=== PATIENT | female | born 1930 | race Caucasian/White ===

== ENCOUNTER 2017-05-06 20:28 | Inpatient (IN) | payer MEDICARE, BC ==
[~2017-05-06] VITALS: Ht 157.5 cm; Wt 54.4 kg
[2017-05-06 21:00] VITALS: BP 113/78
[2017-05-06 21:07] LABS: BASOPHILS % (AUTO) 0.7 % (0.0-2.0); EOSINOPHILS % (AUTO) 2.9 % (0.0-3.0); MEAN CORPUSCULAR HEMOGLOBIN 31.9 PG (27.0-31.0); MEAN CORPUSCULAR HGB CONC 32.2 G/DL (32.0-36.0); MEAN CORPUSCULAR VOLUME 99 FL (80-99); MEAN PLATELET VOLUME 5.6 FL (6.5-10.1); MONOCYTES % (AUTO) 5.7 % (1.0-10.0); NEUTROPHILS % (AUTO) 72.7 % (45.0-75.0); PLATELET COUNT 261 K/UL (150-450); RED BLOOD COUNT 3.07 M/UL (4.20-5.40); RED CELL DISTRIBUTION WIDTH 12.1 % (11.6-14.8); WHITE BLOOD COUNT 9.4 K/UL (4.8-10.8)
--- NOTE | 2017-05-06 21:12 | Emergency Room Report ---
History of Present Illness General Chief Complaint: Palpitations Source: Patient, Family Member, EMS Present Illness HPI 87-year-old female history of end-stage renal disease on dialysis Wednesday, completed dialysis today, hypertension, seizures on Lamictal , presenting with palpitations. History obtained from patient and daughter. Patient states that towards the end of dialysis she started feeling very lightheaded with extreme palpitations. Also felt short of breath. Very dizzy. Did not syncopized. Denied chest pain. Daughter stating that she has had a fib many years ago, however she was never given any meds. Patient is not on anticoagulation nor on aspirin Otherwise prior to today's episode, patient is been eating and drinking well, Denies any recent fever chills nausea vomiting diarrhea dysuria hematuria Allergies: Coded Allergies: HYDROMORPHONE (Verified Allergy, Unknown, 05/06/17) KETOROLAC (Verified Allergy, Unknown, 05/06/17) PENICILLINS (Verified Allergy, Unknown, 05/06/17) Patient History Past Medical History: see triage record Past Surgical History: none Pertinent Family History: none Last Menstrual Period: n/a Reviewed Nursing Documentation: PMH: Agreed, PSxH: Agreed Nursing Documentation-PMH Hx Hypertension: Yes Review of Systems All Other Systems: negative except mentioned in HPI Physical Exam Vital Signs Date Time Temp Pulse Resp B/P (MAP) Pulse Ox O2 Delivery O2 Flow Rate FiO2 05/06/17 20:24 98.2 117 20 118/86 98 Room Air Sp02 EP Interpretation: reviewed, normal General Appearance: alert, GCS 15, non-toxic, mild distress, other - Elderly woman, appears to the tired however awake alert cooperative, not in pain Head: normocephalic, atraumatic Eyes: bilateral eye normal inspection, bilateral eye PERRL, bilateral eye EOMI ENT: normal ENT inspection, normal pharynx, normal voice, moist mucus membranes Neck: normal inspection, full range of motion, supple Respiratory: normal inspection, lungs clear, normal breath sounds, no respiratory distress, no retraction, no wheezing, speaking full sentences, chest symmetrical Cardiovascular #1: no edema, normal capillary refill, tachycardia, irregularly irregular, other - L sided chest port Cardiovascular #2: 2+ radial (R), 2+ radial (L) Gastrointestinal: normal inspection, non tender, soft, non-distended, no guarding Musculoskeletal: normal inspection, back normal, normal range of motion, non- tender Neurologic: normal inspection, alert, oriented x3, responsive, motor strength/ tone normal, sensory intact, normal gait, speech normal Psychiatric: normal inspection, judgement/insight normal, memory normal Skin: normal inspection, normal color, no rash, warm/dry, well hydrated, normal turgor Procedures Critical Care Time Critical Care Time 40 minutes of CC time 87-year-old female, end-stage renal disease, atrial fibrillation with RVR Vital signs: tachycardic Airway patent. Not hypoxic. PLAN: IV access, labs, troponin, Cardizem Anticipate admission to Tele vs. [facility] CC time also includes review of labs, review of EMR, discussion with family, d/ w hospitalist CC could include dosing of pressors, additional Abx CC time does not include procedures Medical Decision Making Diagnostic Impression: Primary Impression: Atrial fibrillation with rapid ventricular response Additional Impressions: NSTEMI (non-ST elevated myocardial infarction) Hypokalemia ESRD (end stage renal disease) ER Course 87-year-old female with end-stage renal disease, found to be in A. fib with RVR DDX: A. fib with RVR triggered by dehydration, electrolyte disturbance, infectious, UTI/pneumonia, ACS Plan: Obtain labs, ua, EKG, CXR Cardizem Anticipate admission ER course: Patient initially in A. fib with RVR, heart rate in the 150s, blood pressure 140 /80, Cardizem IV given heart rate came down to 55-60, per patient's family her baseline is about 60 Patient has been awake alert conversing with family Cardizem by mouth given heart rate remains around 55-65 Patient noted to have hypokalemia, repleted Also noted to have elevation of troponin, increased 2nd one heparin bolus and drip given Disposition: Patient is to be admitted to telemetry unit D/W Dr Hurt who has accepted pt for admission Please note that this Emergency Department Report was dictated using Designlabpsychiatric secretary technology software, occasionally this can lead to erroneous entry secondary to interpretation by the dictation equipment. EKG Diagnostic Results EP Interpretation: Yes Rate: Tachycardic Rhythm: Atrial fibrillation ST Segments: ST depression in inferior leads ASA given to patient: No Rhythm Strip EP Interpretation: Yes Rate: Tachycardic Rhythm: A. fib with RVR Chest X-ray CXR: Ordered: Yes 1 view Indication: Pain EP interpretation: Yes Interpretation: Mild cardiomegaly, Port-A-Cath seemed to go into the SVC Impression: Mild cardiomegaly Electronically signed by Margot Pearson MD Laboratory Tests Test 05/06/17 20:45 05/07/17 00:05 White Blood Count 9.4 K/UL (4.8-10.8) Red Blood Count 3.07 M/UL (4.20-5.40) L Hemoglobin 9.8 G/DL (12.0-16.0) L Hematocrit 30.4 % (37.0-47.0) L Mean Corpuscular Volume 99 FL (80-99) Mean Corpuscular Hemoglobin 31.9 PG (27.0-31.0) H Mean Corpuscular Hemoglobin Concent 32.2 G/DL (32.0-36.0) Red Cell Distribution Width 12.1 % (11.6-14.8) Platelet Count 261 K/UL (150-450) Mean Platelet Volume 5.6 FL (6.5-10.1) L Neutrophils (%) (Auto) 72.7 % (45.0-75.0) Lymphocytes (%) (Auto) 18.0 % (20.0-45.0) L Monocytes (%) (Auto) 5.7 % (1.0-10.0) Eosinophils (%) (Auto) 2.9 % (0.0-3.0) Basophils (%) (Auto) 0.7 % (0.0-2.0) Prothrombin Time 9.6 SEC (9.30-11.50) Prothrombin Time INR 0.9 (0.9-1.1) PTT 45 SEC (23-33) H Sodium Level 138 MMOL/L (136-145) 135 MMOL/L (136-145) L Potassium Level 2.9 MMOL/L (3.5-5.1) L 2.8 MMOL/L (3.5-5.1) L Chloride Level 96 MMOL/L (98-107) L 97 MMOL/L (98-107) L Carbon Dioxide Level 28 MMOL/L (21-32) 27 MMOL/L (21-32) Anion Gap 14 mmol/L (5-15) 9 mmol/L (5-15) Blood Urea Nitrogen 10 mg/dL (7-18) 12 mg/dL (7-18) Creatinine 1.6 MG/DL (0.55-1.30) H 2.0 MG/DL (0.55-1.30) H Estimate Glomerular Filtration Rate mL/min (>60) mL/min (>60) Glucose Level 63 MG/DL (74-106) L 115 MG/DL (74-106) H Calcium Level 8.8 MG/DL (8.5-10.1) 8.3 MG/DL (8.5-10.1) L Total Bilirubin 0.5 MG/DL (0.2-1.0) 0.3 MG/DL (0.2-1.0) Aspartate Amino Transferase (AST) 19 U/L (15-37) < 5 U/L (15-37) L Alanine Aminotransferase (ALT) 13 U/L (12-78) 7 U/L (12-78) L Alkaline Phosphatase 103 U/L (46-116) 78 U/L (46-116) Total Creatine Kinase 24 U/L (26-308) L Creatine Kinase MB 0.7 NG/ML (0.0-3.6) Creatine Kinase MB Relative Index 2.9 Troponin I 0.056 ng/mL (0.000-0.056) 0.812 ng/mL (0.000-0.056) Pro-B-Type Natriuretic Peptide 9030 pg/mL (0-125) H Total Protein 6.6 G/DL (6.4-8.2) 5.9 G/DL (6.4-8.2) L Albumin 2.8 G/DL (3.4-5.0) L 2.2 G/DL (3.4-5.0) L Globulin 3.8 g/dL 3.7 g/dL Albumin/Globulin Ratio 0.7 (1.0-2.7) L 0.6 (1.0-2.7) L Last Vital Signs Date Time Temp Pulse Resp B/P (MAP) Pulse Ox O2 Delivery O2 Flow Rate FiO2 05/06/17 20:24 98.2 117 20 118/86 98 Room Air Disposition: ADMITTED INPATIENT Condition: Serious Margot Pearson M.D. May 06, 2017 21:12
[2017-05-06] MEDS ORDERED: dilTIAZem HCl 25mg/5ml Inj IVP ONE (21:15)
[2017-05-06] MEDS ORDERED: Sodium Chloride 500ML 500 ML IVPB ONE (21:15)
[2017-05-06] MEDS ORDERED: Calcium Gluconate 1gm/10ml vial IVP ONE (21:15)
[2017-05-06 21:18] LABS: INR 0.9 (0.9-1.1); PROTHROMBIN TIME 9.6 SEC (9.30-11.50)
[2017-05-06 21:37] LABS: ALANINE AMINOTRANSFERASE 13 U/L (12-78); ALBUMIN/GLOBULIN RATIO 0.7 (1.0-2.7); ANION GAP 14 mmol/L (5-15); ASPARTATE AMINO TRANSFERASE 19 U/L (15-37); CALCIUM 8.8 MG/DL (8.5-10.1); CARBON DIOXIDE 28 MMOL/L (21-32); CHLORIDE 96 MMOL/L (98-107); CKMB 0.7 NG/ML (0.0-3.6); CREATININE 1.6 MG/DL (0.55-1.30); POTASSIUM 2.9 MMOL/L (3.5-5.1); SODIUM 138 MMOL/L (136-145); TOTAL PROTEIN 6.6 G/DL (6.4-8.2)
[2017-05-06] MEDS ORDERED: dilTIAZem HCl 30mg tab ORAL ONE (21:45)
[2017-05-06 22:33] VITALS: BP 142/66
[2017-05-06] MEDS ORDERED: HYDRALAZINE HCL25 M1 ORAL (23:39)
[2017-05-06] MEDS ORDERED: FUROSEMIDE40 MG ORAL (23:39)
[2017-05-06] MEDS ORDERED: AMLODIPINE BESY10 MG ORAL (23:39)
[2017-05-06] MEDS ORDERED: LAMICTAL150 MG ORAL (23:39)
[2017-05-06] MEDS ORDERED: LAMICTAL100 MG ORAL (23:39)
[2017-05-06] MEDS ORDERED: TYLENOL EXTRA500 MG ORAL (23:39)
[2017-05-06] MEDS ORDERED: NEPHRO-VITE RX1 EAC1 PO (23:39)
[2017-05-06] MEDS ORDERED: CARVEDILOL6.25 MG ORAL (23:39)
[2017-05-07] VITALS (9 sets, daily range): BP systolic 109–165; BP diastolic 53–78
[2017-05-07 00:32] LABS: ALANINE AMINOTRANSFERASE 7 U/L (12-78); ALBUMIN/GLOBULIN RATIO 0.6 (1.0-2.7); ANION GAP 9 mmol/L (5-15); ASPARTATE AMINO TRANSFERASE < 5 U/L (15-37); CALCIUM 8.3 MG/DL (8.5-10.1); CARBON DIOXIDE 27 MMOL/L (21-32); POTASSIUM 2.8 MMOL/L (3.5-5.1); TOTAL PROTEIN 5.9 G/DL (6.4-8.2)
[2017-05-07 00:52] LABS: CHLORIDE 97 MMOL/L (98-107); SODIUM 135 MMOL/L (136-145)
[2017-05-07] MEDS ORDERED: Morphine Sulfate 2mg/ml Inj IVP ONE (01:15)
[2017-05-07] MEDS ORDERED: Heparin 25,000u/D5W 500ml 500 ML IV SCH (01:15)
[2017-05-07] MEDS ORDERED: Heparin 5000 units/ml inj IV ONE (01:15)
[2017-05-07] MEDS ORDERED: Miralax 17gm pkt ORAL PRN (08:00)
[2017-05-07] MEDS ORDERED: HydrALAZINE 25mg tab ORAL PRN (08:00)
[2017-05-07] MEDS ORDERED: Metoprolol 5mg/5ml Inj IVP PRN (08:00)
[2017-05-07] MEDS ORDERED: Albuterol/Ipratropium 3ml neb HHN PRN (08:00)
[2017-05-07] MEDS ORDERED: Norco 5mg/325mg tab ORAL PRN (08:00)
--- NOTE | 2017-05-07 08:11 | Wound Care Consultation ---
Wound Assessment Wound Assessment #1: Wound Present on Admission: Yes New Wound: No Status Change of Wound: No Wound Location Body Site Modif: left Wound Location Body Site: heel Wound Type: pressure ulcer Macario Test: Does not Macario Pressure Ulcer Stage: I Wound Length: 2.5 Wound Width: 3.5 Percent of Wound [place]/Red: 100 Wound Drainage Amount: None Wound Drainage Odor: None/Absent Tissue Surrounding Wound: Erythemic Wound General Appearance: Reddened Wound Assessment #2: Wound Number: 2 Wound Present on Admission: Yes New Wound: No Status Change of Wound: No Wound Location Body Site Modif: right Wound Location Body Site: heel Wound Type: pressure ulcer Macario Test: Does not Macario Pressure Ulcer Stage: I Wound Length: 2.5 Wound Width: 3.5 Percent of Wound [place]/Red: 100 Wound Drainage Amount: None Wound Drainage Odor: None/Absent Tissue Surrounding Wound: Erythemic Wound General Appearance: Reddened Wound Assessment #3: Wound Number: 3 Wound Present on Admission: Yes New Wound: No Status Change of Wound: No Wound Location Body Site Modif: mid Wound Location Body Site: sacral Wound Type: pressure ulcer Macario Test: Does not Macario Pressure Ulcer Stage: III Wound Thickness: Full Thickness Wound Length: 2.0 Wound Width: 2.0 Wound Depth: 0.2 Percent of Wound [place]/Red: 100 Wound Drainage Description: Serosanguineous Wound Drainage Amount: Scant Wound Drainage Odor: None/Absent Tissue Surrounding Wound: Erythemic - purple Wound General Appearance: Reddened, Draining Wound Assessment #4: Wound Number: 4 Wound Present on Admission: Yes New Wound: No Status Change of Wound: No Wound Location Body Site Modif: left Wound Location Body Site: sacral Wound Type: pressure ulcer Macario Test: Does not Macario Pressure Ulcer Stage: Deep Tissue Injury Wound Thickness: Full Thickness Wound Length: 1.5 Wound Width: 1.5 Wound Depth: utd Percent of Wound Black/Brown: 100 Wound Drainage Amount: None Wound Drainage Odor: None/Absent Tissue Surrounding Wound: Erythemic Wound General Appearance: Reddened - brownish Wound Comment #1 Mid sacral stage III pressure ulcer #2 Left sacral DTI with reddish brownish discoloration #3 Left heel stage I pressure ulcer #4 Right heel stage I pressure ulcer Recommendation -Mid sacral stage III pressure ulcer Cleanse with saline pat dry apply skin barrier film to ezra wound and left sacral with DTI area, apply Triad cream to wound bed, cover with Biatain silicone daily and PRN soiled/dislodged -Local wound care per protocol for stage I pressure ulcer on both heels -Offload both heels -Heel protector on both heels -Turn and reposition -Low air loss SPR mattress -Optimize nutrition -Keep clean and dry -Assess and f/u accordingly for any changes ARCELIA LIMON RN May 07, 2017 08:11
--- NOTE | 2017-05-07 08:38 | Consultation ---
Consult Note Consult Note Nephrology consult dictated#[id number] MADELAINE HUGHES May 07, 2017 08:38
[2017-05-07] MEDS: Nephrovite tab (Rena-Vite) ORAL SCH (08:57)
[2017-05-07] MEDS: Vitamin D 1000 IU Tab ORAL SCH (08:57)
[2017-05-07] MEDS ORDERED: Flu Vaccine Quadrivalent 0.5ml IM ONE (09:00)
[2017-05-07] MEDS ORDERED: LaMICtal 150mg tab ORAL SCH ×2 (09:00)
[2017-05-07] MEDS: Dyna-Hex 2% Top Sol 2oz TOPIC SCH (09:01)
[2017-05-07] MEDS: Heparin 5000 units/ml inj SUBQ SCH ×2 (09:05→21:33)
--- NOTE | 2017-05-07 10:49 | Diagnostic Imaging Report ---
Indication: COUGH Technique: One view of the chest Comparison: none Findings: There is a left chest tunneled dialysis catheter, tip projecting at level the cavoatrial junction. There is a band of atelectasis or scarring in the retrocardiac left lung base. The lungs and pleural spaces are otherwise clear. Heart size is upper limits of normal. There is an acuity indeterminate left humeral neck fracture deformity Impression: No acute cardiopulmonary process Left basilar atelectasis or scarring Other findings as noted
[2017-05-07] MEDS ORDERED: HydrALAZINE 25mg tab ORAL SCH (14:00)
--- NOTE | 2017-05-07 15:42 | Consultation ---
History of Present Illness General Date patient seen: May 07, 2017 Chief Complaint: Palpitations Reason for Consultation: Dr. Quiñones Present Illness HPI 87-year-old female with PMHx of hypertension, atrial fibrillation, seizures, end-stage renal disease on dialysis, presented with palpitations towards the end of dialysis she started feeling very lightheaded with extreme palpitations. Also felt short of breath. Very dizzy. Patient is admitted to telemetry for further evaluation. Allergies: Coded Allergies: HYDROMORPHONE (Verified Allergy, Unknown, 05/06/17) KETOROLAC (Verified Allergy, Unknown, 05/06/17) PENICILLINS (Verified Allergy, Unknown, 05/06/17) Medication History Scheduled Amlodipine Besylate* (Amlodipine Besylate*), 10 MG ORAL DAILY, (Reported) Hydralazine Hcl* (Hydralazine Hcl*), 25 MG ORAL EVERY 8 HOURS, (Reported) Lamotrigine* (Lamictal*), 150 MG ORAL DAILY, (Reported) Lamotrigine* (Lamictal*), 100 MG ORAL BEDTIME, (Reported) Vit B Cmplx 3/Fa/Vit C/Biotin (Nephro-Jadon Rx Tablet), 1 EACH PO 3XW, (Reported) Scheduled PRN Acetaminophen* (Tylenol Extra Strength*), 325 MG ORAL Q6H PRN for Mild Pain/ Temp > 100.5, (Reported) Discontinued Medications Carvedilol* (Carvedilol*), 6.25 MG ORAL EVERY 12 HOURS, (Reported) Discontinued Reason: Pt stopped taking med Furosemide* (Lasix*), 40 MG ORAL DAILY, (Reported) Discontinued Reason: Pt stopped taking med Patient History Healthcare decision maker Resuscitation status Full Code Advanced Directive on File Past Medical/Surgical History Past Medical/Surgical History: (1) ESRD (end stage renal disease) (2) Atrial fibrillation Review of Systems Constitutional: Reports: malaise, weakness Cardiovascular: Reports: palpitations Physical Exam General Appearance: cachetic Lines, tubes and drains: peripheral HEENT: normocephalic, atraumatic Neck: non-tender, normal alignment Respiratory/Chest: chest wall non-tender, lungs clear Breasts: no masses Cardiovascular/Chest: normal peripheral pulses, normal rate Abdomen: normal bowel sounds, soft Genitourinary/Rectal: normal genital exam Last 24 Hour Vital Signs Date Time Temp Pulse Resp B/P (MAP) Pulse Ox O2 Delivery O2 Flow Rate FiO2 05/07/17 12:42 96.6 56 19 109/59 98 Room Air 05/07/17 12:34 96.6 56 19 109/54 Room Air 05/07/17 08:49 97.9 55 19 116/64 98 Room Air 05/07/17 08:00 57 05/07/17 04:03 97.9 56 18 113/64 99 Room Air 05/07/17 04:00 53 05/07/17 02:51 97.5 57 20 125/58 97 Room Air 05/07/17 02:25 98.5 61 17 125/56 97 Room Air 2.0 05/07/17 02:08 61 17 125/56 97 Room Air 05/07/17 00:14 64 23 121/53 98 Room Air 05/06/17 23:27 66 141/64 05/06/17 22:33 57 18 142/66 99 Nasal Cannula 2.0 05/06/17 21:12 145 113/78 05/06/17 21:00 98.5 140 20 113/78 99 Nasal Cannula 2.0 05/06/17 20:24 98.2 117 20 118/86 98 Room Air Intake and Output 05/07/17 05/08/17 19:00 07:00 Intake Total 320 ml Balance 320 ml Intake Oral 320 ml # Voids 2 Laboratory Tests Test 05/06/17 20:45 05/07/17 00:05 05/07/17 09:50 White Blood Count 9.4 K/UL (4.8-10.8) Red Blood Count 3.07 M/UL (4.20-5.40) L Hemoglobin 9.8 G/DL (12.0-16.0) L Hematocrit 30.4 % (37.0-47.0) L Mean Corpuscular Volume 99 FL (80-99) Mean Corpuscular Hemoglobin 31.9 PG (27.0-31.0) H Mean Corpuscular Hemoglobin Concent 32.2 G/DL (32.0-36.0) Red Cell Distribution Width 12.1 % (11.6-14.8) Platelet Count 261 K/UL (150-450) Mean Platelet Volume 5.6 FL (6.5-10.1) L Neutrophils (%) (Auto) 72.7 % (45.0-75.0) Lymphocytes (%) (Auto) 18.0 % (20.0-45.0) L Monocytes (%) (Auto) 5.7 % (1.0-10.0) Eosinophils (%) (Auto) 2.9 % (0.0-3.0) Basophils (%) (Auto) 0.7 % (0.0-2.0) Prothrombin Time 9.6 SEC (9.30-11.50) Prothromb Time International Ratio 0.9 (0.9-1.1) Activated Partial Thromboplast Time 45 SEC (23-33) H Sodium Level 138 MMOL/L (136-145) 135 MMOL/L (136-145) L Potassium Level 2.9 MMOL/L (3.5-5.1) L 2.8 MMOL/L (3.5-5.1) L Chloride Level 96 MMOL/L (98-107) L 97 MMOL/L (98-107) L Carbon Dioxide Level 28 MMOL/L (21-32) 27 MMOL/L (21-32) Anion Gap 14 mmol/L (5-15) 9 mmol/L (5-15) Blood Urea Nitrogen 10 mg/dL (7-18) 12 mg/dL (7-18) Creatinine 1.6 MG/DL (0.55-1.30) H 2.0 MG/DL (0.55-1.30) H Estimat Glomerular Filtration Rate mL/min (>60) mL/min (>60) Glucose Level 63 MG/DL (74-106) L 115 MG/DL (74-106) H Calcium Level 8.8 MG/DL (8.5-10.1) 8.3 MG/DL (8.5-10.1) L Total Bilirubin 0.5 MG/DL (0.2-1.0) 0.3 MG/DL (0.2-1.0) Aspartate Amino Transf (AST/SGOT) 19 U/L (15-37) < 5 U/L (15-37) L Alanine Aminotransferase (ALT/SGPT) 13 U/L (12-78) 7 U/L (12-78) L Alkaline Phosphatase 103 U/L (46-116) 78 U/L (46-116) Total Creatine Kinase 24 U/L (26-308) L Creatine Kinase MB 0.7 NG/ML (0.0-3.6) Creatine Kinase MB Relative Index 2.9 Troponin I 0.056 ng/mL (0.000-0.056) 0.812 ng/mL (0.000-0.056) Pro-B-Type Natriuretic Peptide 9030 pg/mL (0-125) H Total Protein 6.6 G/DL (6.4-8.2) 5.9 G/DL (6.4-8.2) L Albumin 2.8 G/DL (3.4-5.0) L 2.2 G/DL (3.4-5.0) L Globulin 3.8 g/dL 3.7 g/dL Albumin/Globulin Ratio 0.7 (1.0-2.7) L 0.6 (1.0-2.7) L Thyroid Stimulating Hormone (TSH) 3.093 uiU/mL (0.360-3.740) Height (Feet): 5 Height (Inches): 2.00 Weight (Pounds): 100 Medications Current Medications Medications (Trade) Dose Ordered Sig/Barbara Route PRN Reason Start Time Stop Time Status Last Admin Dose Admin Acetaminophen (Tylenol) 650 mg Q4H PRN ORAL Fever>100.5 05/07/17 08:00 06/06/17 07:59 Acetaminophen/ Hydrocodone Bitart ([place] 5/325) 1 tab Q6H PRN ORAL Severe Pain (Pain Scale 7-10) 05/07/17 08:00 05/14/17 07:59 Albuterol/ Ipratropium (Albuterol/ Ipratropium) 3 ml Q4H PRN HHN Shortness of Breath 05/07/17 08:00 05/12/17 07:59 Amlodipine Besylate (Norvasc) 10 mg DAILY ORAL 05/07/17 09:00 06/06/17 08:59 Chlorhexidine Gluconate (Bella-Hex 2%) 1 applic DAILY TOPIC 05/07/17 09:00 06/06/17 08:59 05/07/17 09:01 Dextrose (Dextrose 50%) STAT PRN IV Hypoglycemia 05/07/17 08:00 06/06/17 07:59 Heparin Sodium (Porcine) (Heparin 5000 units/ml) 5,000 units EVERY 12 HOURS SUBQ 05/07/17 09:00 06/06/17 08:59 05/07/17 09:05 Heparin Sodium (Porcine) (Heparin Sod 1000 units/ml 10ml) 2,000 unit ONCE IV 05/08/17 06:00 05/08/17 18:00 Hydralazine HCl (Apresoline) 25 mg EVERY 8 HOURS PRN ORAL For SBP > 150 05/07/17 08:00 06/06/17 07:59 Lamotrigine (LaMICtal) 100 mg BEDTIME ORAL 05/07/17 21:00 06/06/17 20:59 Lamotrigine (LaMICtal) 150 mg DAILY ORAL 05/07/17 09:00 06/06/17 08:59 05/07/17 08:57 Metoprolol Tartrate (Lopressor) 5 mg Q1H PRN IVP spb more than 120 05/07/17 08:00 06/06/17 07:59 Ondansetron HCl (Zofran) 4 mg Q6H PRN IVP Nausea & Vomiting 05/07/17 08:00 06/06/17 07:59 Ondansetron HCl (Zofran) 4 mg Q6H PRN IVP Nausea & Vomiting 05/07/17 08:00 06/06/17 07:59 Polyethylene Glycol (Miralax) 17 gm DAILYPRN PRN ORAL Constipation 05/07/17 08:00 06/06/17 07:59 Temazepam (Restoril) 15 mg HSPRN PRN ORAL Insomnia 05/07/17 21:00 05/14/17 20:59 Vitamin B Complex/ Vit C/Folic Acid (Nephrovite) 1 tab 3XW ORAL 05/07/17 09:00 06/06/17 08:59 05/07/17 08:57 Vitamin B Complex/ Vit C/Folic Acid (Nephrovite) 1 tab QWEEK ORAL 05/09/17 09:00 06/08/17 08:59 Vitamin D (Vitamin D) 2,000 intlu DAILY ORAL 05/07/17 09:00 06/06/17 08:59 05/07/17 08:57 Assessment/Plan Problem List: (1) Atrial fibrillation with rapid ventricular response ICD Codes: I48.91 - Unspecified atrial fibrillation SNOMED: 224025779230522 (2) ESRD (end stage renal disease) ICD Codes: N18.6 - End stage renal disease SNOMED: 37019133 (3) Hypokalemia ICD Codes: E87.6 - Hypokalemia SNOMED: 32928971 Assessment/Plan telemetry monitoring echo cardio to see HD by nephrology check electrolytes ALESHA FERRO May 07, 2017 15:42
--- NOTE | 2017-05-07 17:02 | History & Physical ---
History and Physical History & Physicial Dictated for Int Med - Dr Hurt no. [id number]. KARYN STEPHENSON May 07, 2017 17:02
--- NOTE | 2017-05-07 17:45 | Consultation ---
DATE OF CONSULTATION: 05/07/2017 NEPHROLOGY CONSULTATION CONSULTING PHYSICIAN: Ian Jackson M.D. REFERRING PHYSICIAN: Mesfin Hurt M.D. REASON FOR CONSULT: The patient with end-stage renal disease, has presented with atrial fibrillation with rapid ventricular response. HISTORY OF PRESENT ILLNESS: This is a very pleasant 87-year-old white female, who has had end-stage renal disease, being on hemodialysis three days a week on Wednesday, , and Saturdays and she is under my care. She was seen at bedside dialysis. Apparently during her treatment on 05/06/2017, started to feel dizzy, was found to have some tachycardia, not much fluid was taken off of her, the goal was only 1 liter. However, in the middle of the dialysis, she started to feel dizzy and has had tachycardia. The paramedics were called and seems like that she was in atrial fibrillation with rapid ventricular response. However, she was brought to the emergency room of [facility] where the evaluation was performed and atrial fibrillation was at the rate of 133. However, it seems that by the time I am seeing her now, she is converted to sinus rhythm and she also has complained of some chest pain while she has had the tachycardia. At the time I am seeing her now, she is not tachycardic. She received Cardizem IV in the emergency room and she is denying also any shortness of breath. I have been asked to see her and arrange for her hemodialysis needs. Her troponin initially was in the range of 0.05, which has gone up to about 0.812. EKG does not show any obvious signs of ischemic changes. PAST MEDICAL HISTORY: Significant for hypercholesterolemia; hypertension; epilepsy, for which she has been on Lamictal; end-stage renal disease, being on hemodialysis 3 days a week; mold exposure; anemia; blindness of the right eye; chronic diastolic heart failure; osteopenia; and secondary hyperparathyroidism. PAST SURGICAL HISTORY: Status post hemorrhoidectomy, status post left hip surgery, status post right hip surgery, status post total abdominal hysterectomy for fibroid tumor. ALLERGIES: Dilaudid, Exforge, amantadine, ciprofloxacin, Dilantin, ketorolac, Levaquin, [place], penicillin, and Toradol. MEDICATIONS: Her current medications include amlodipine 10 mg p.o. daily, hydralazine 25 mg p.o. q.8 h., Lamictal 150 mg p.o. daily, metoprolol was given 5 mg IV p.r.n. for tachycardia, Nephro-Jadon 1 tablet p.o. daily, Crestor 5 mg p.o. daily, Imdur 60 mg p.o. daily, Folvite 1 mg p.o. daily, and calcium D 1 tablet p.o. daily. SOCIAL HISTORY: She does not smoke, does not drink alcohol. She used to live in [facility]. Now she is living with her daughter, who is very supportive. She is . No alcohol or drug abuse. FAMILY HISTORY: Noncontributory in this octogenarian lady. PHYSICAL EXAMINATION: GENERAL: She does not seem to be in much acute distress. VITAL SIGNS: Blood pressure is 113/64, pulse of 56, respirations 18, and temperature 97.9. HEENT: Head is atraumatic. Eyes, pupils reactive to light. No evidence of papilledema. Ears, canals are clear. Tympanic membranes are intact. Nose, nares are patent without any nasal discharge. Throat without any inflammation or exudate. NECK: Supple. Jugular venous distention is within normal limits. No cervical adenopathy. No thyromegaly. HEART: Regular rhythm. No gallops. LUNGS: Clear to auscultation. ABDOMEN: Soft. Bowel sounds positive. No hepatosplenomegaly. EXTREMITIES: Lower extremities show no cyanosis or clubbing. No pedal edema. NEUROLOGICAL: Cranial nerves are intact. There is no focal neurological deficit present. LABORATORY DATA: Showing sodium 135, potassium 2.8, chloride is 97, carbon dioxide is 27, BUN is 12, creatinine is 2.0, and calcium is 8.3. As I mentioned troponin is 0.812. WBC is 9.4, hemoglobin is 9.8, hematocrit 30.4, and platelets are 261,000. IMPRESSION: 1. End-stage renal disease. 2. Atrial fibrillation with rapid ventricular response, which seems to be intermittent. Underlying coronary artery disease needs to be ruled out. It might have been due to the shift of the fluid during dialysis. 3. No signs of congestive heart failure at this point. PLAN: I am going to arrange for hemodialysis tomorrow. A cardiac workup including cardiac stress test and 2D echo probably is warranted. I am going to check also a TSH level on her. At the end, I would like to thank you for letting me be involved in the care of this very nice gentleman. Please do not hesitate to contact me if you have any questions. Ian Jackson M.D. DR: ALIDA JOB#: [id number] CC:
[2017-05-08 00:21] VITALS: BP 158/82
--- NOTE | 2017-05-08 00:30 | History and Physical Report ---
DATE OF ADMISSION: 05/07/2017 CHIEF COMPLAINT: The patient is an 87-year-old white female, who presents with chief complaint of chest pain, shortness of breath, and headache. HISTORY OF PRESENT ILLNESS: The patient was in dialysis yesterday, 05/06/2017. The patient began to experience headache. Then the patient began experience shortness of breath. The patient complained of chest pain. The patient complained of palpitations. Chest pain did not radiate to the arm or to the jaw. The patient presented to [facility]. The patient was found to be in atrial fibrillation with rapid ventricular rate. The patient is admitted for chest pain and atrial fibrillation with rapid ventricular rate. PAST MEDICAL HISTORY: Significant for: 1. End-stage renal disease, currently on hemodialysis, every Wednesday, , and Wednesday at [facility]. 2. Hypertension. 3. Seizure disorder. PAST SURGICAL HISTORY: Significant for: 1. Left femur open reduction and internal fixation. 2. Bilateral leg fracture, open reduction and internal fixation. 3. Total abdominal hysterectomy. CURRENT MEDICATIONS: 1. Amlodipine 10 mg one tablet p.o. daily. 2. Hydralazine 25 mg one tablet p.o. 3 times daily. 3. Lamictal 150 mg one tablet p.o. twice daily. 4. Nephro-Jadon one tablet p.o. daily. 5. Vitamin D one tablet p.o. daily. ALLERGIES: 1. Toradol. 2. Penicillin. 3. Dilaudid. SOCIAL HISTORY: The patient is . The patient denies tobacco or alcohol use. REVIEW OF SYSTEMS: CONSTITUTIONAL: The patient denies weight loss and weight gain. The patient denies fevers or chills. HEENT: The patient denies ear or throat pain. The patient complains of headache as above. CARDIOVASCULAR: The patient complains of palpitations. The patient complains of chest pain. CHEST: The patient complains of shortness of breath. The patient denies wheezes. ABDOMEN: The patient denies nausea, vomiting, diarrhea, or constipation. GENITOURINARY: The patient denies dysuria or increased frequency of urination. NEUROMUSCULAR: The patient has a history of seizure disorder. The patient denies generalized weakness. PHYSICAL EXAMINATION: VITAL SIGNS: Temperature 97.9, respirations 18, pulse 56, and blood pressure 113/64. GENERAL: The patient is a well-developed and well-nourished thin-appearing white female, in no apparent distress. HEENT: Eyes, pupils are equal and responsive to light and accommodation. Extraocular movements are intact. NECK: Supple without lymphadenopathy. CHEST: Lungs are clear to auscultation bilaterally without wheezes or rales. CARDIOVASCULAR: Tachycardic. Irregular rhythm. Irregular rate. S1 and S2 normal without murmurs, rubs, or gallops. ABDOMEN: Soft, nontender, and nondistended. Positive bowel sounds. No evidence of hepatosplenomegaly. Current no rebound or guarding noted. EXTREMITIES: Negative for clubbing, cyanosis, or edema. RECTAL/GENITAL: Refused. NEUROLOGIC: Cranial nerves II to XII are grossly intact without focal deficits. Motor strength is 5/5 bilaterally. Deep tendon reflexes are 2+ plantar. DIAGNOSTIC DATA: An EKG demonstrated atrial fibrillation with rapid ventricular rate at 133 beats per minute. There are no acute ST-changes or Q-waves noted. LABORATORY STUDIES: WBC 9.4, hemoglobin 9.8, hematocrit 30.4, platelets 161,000. Sodium 138, potassium 2.9, chloride 96, CO2 28, BUN 10, creatinine 1.6, glucose 63. Troponin 0.056. BNP elevated at 9030. ASSESSMENT: This is an 87-year-old white female, 1. Atrial fibrillation with rapid ventricular rate. 2. Chest pain. 3. Shortness of breath. 4. End-stage renal disease. 5. Hypertension. 6. Seizure disorder. TREATMENT: 1. Atrial fibrillation with rapid ventricular rate. A Cardiology consultation has been obtained with Dr. Raghu Whitehead. We will follow recommendations of Cardiology. An echocardiogram is pending. 2. Chest pain. This may be secondary to atrial fibrillation as above. 3. Shortness of breath, probably secondary to atrial fibrillation as above. 4. End-stage renal disease. A Nephrology consultation has been obtained with Dr. Toni Thompson. The patient follows with Dr. Long as an outpatient. 5. Hypertension. Continue amlodipine as above. 6. Seizure disorder. Continue Lamictal as above. Jose Manuel Quiñones M.D. DR: Amelia JOB#: [id number] CC:
[2017-05-08 04:00] VITALS: BP 142/53
[2017-05-08] MEDS ORDERED: Heparin Sod 1000 units/ml 10ml IV SCH (06:00)
[2017-05-08 08:00] VITALS: BP 156/71
[2017-05-08] MEDS: Vitamin D 1000 IU Tab ORAL SCH (09:00)
[2017-05-08] MEDS: Dyna-Hex 2% Top Sol 2oz TOPIC SCH (09:00)
[2017-05-08] MEDS: LaMICtal 150mg tab ORAL SCH (09:00)
[2017-05-08] MEDS: Heparin 5000 units/ml inj SUBQ SCH ×2 (09:17→21:13)
--- NOTE | 2017-05-08 09:59 | Pulmonology Progress Note ---
Assessment/Plan Problems: (1) Atrial fibrillation with rapid ventricular response (2) ESRD (end stage renal disease) (3) Hypokalemia (4) NSTEMI (non-ST elevated myocardial infarction) Assessment/Plan check troponin d/w Dr. Whitehead, he will see her today heart rate controlled pt insists on eating regular diet. HD by nephrology Subjective ROS Limited/Unobtainable: No Interval Events: wants to eat POTATOs Allergies: Coded Allergies: HYDROMORPHONE (Verified Allergy, Unknown, 05/06/17) KETOROLAC (Verified Allergy, Unknown, 05/06/17) PENICILLINS (Verified Allergy, Unknown, 05/06/17) Objective Last 24 Hour Vital Signs Date Time Temp Pulse Resp B/P (MAP) Pulse Ox O2 Delivery O2 Flow Rate FiO2 05/08/17 08:00 98.1 65 18 156/71 96 Room Air 05/08/17 07:41 78 16 Room Air 21 05/08/17 04:00 97.9 66 20 142/53 97 Room Air 05/08/17 04:00 63 05/08/17 01:35 98.2 05/08/17 00:21 102.2 67 18 158/82 95 Room Air 95.0 05/08/17 00:00 64 05/07/17 20:00 60 05/07/17 20:00 98.1 62 18 153/62 94 Room Air 05/07/17 16:00 59 05/07/17 15:51 98.1 59 18 139/78 95 Room Air 05/07/17 12:42 96.6 56 19 109/59 98 Room Air 05/07/17 12:34 96.6 56 19 109/54 Room Air 05/07/17 12:00 54 Intake and Output 05/08/17 05/09/17 19:00 07:00 Intake Total 120 ml Balance 120 ml Intake Oral 120 ml General Appearance: WD/WN HEENT: normocephalic, atraumatic Respiratory/Chest: chest wall non-tender, lungs clear Breasts: no masses Cardiovascular: normal peripheral pulses Abdomen: normal bowel sounds, soft, non tender Genitourinary: normal external genitalia Extremities: no cyanosis Skin: no ulcers Neurologic/Psychiatric: no motor/sensory deficits, oriented x 3 Lymphatic: no neck adenopathy Current Medications Medications (Trade) Dose Ordered Sig/Barbara Route PRN Reason Start Time Stop Time Status Last Admin Dose Admin Acetaminophen (Tylenol) 650 mg Q4H PRN ORAL Fever>100.5 05/07/17 08:00 06/06/17 07:59 05/08/17 00:36 Acetaminophen/ Hydrocodone Bitart ([place] 5/325) 1 tab Q6H PRN ORAL Severe Pain (Pain Scale 7-10) 05/07/17 08:00 05/14/17 07:59 Albuterol/ Ipratropium (Albuterol/ Ipratropium) 3 ml Q4H PRN HHN Shortness of Breath 05/07/17 08:00 05/12/17 07:59 Amlodipine Besylate (Norvasc) 10 mg DAILY ORAL 05/07/17 09:00 06/06/17 08:59 Chlorhexidine Gluconate (Bella-Hex 2%) 1 applic DAILY TOPIC 05/07/17 09:00 06/06/17 08:59 05/08/17 09:00 Dextrose (Dextrose 50%) STAT PRN IV Hypoglycemia 05/07/17 08:00 06/06/17 07:59 Heparin Sodium (Porcine) (Heparin 5000 units/ml) 5,000 units EVERY 12 HOURS SUBQ 05/07/17 09:00 06/06/17 08:59 05/08/17 09:17 Heparin Sodium (Porcine) (Heparin Sod 1000 units/ml 10ml) 2,000 unit ONCE IV 05/08/17 06:00 05/08/17 18:00 Hydralazine HCl (Apresoline) 25 mg EVERY 8 HOURS PRN ORAL For SBP > 150 05/07/17 08:00 06/06/17 07:59 Lamotrigine (LaMICtal) 100 mg BEDTIME ORAL 05/07/17 21:00 06/06/17 20:59 05/07/17 21:30 Lamotrigine (LaMICtal) 150 mg DAILY ORAL 05/08/17 09:00 06/07/17 08:59 05/08/17 09:00 Metoprolol Tartrate (Lopressor) 5 mg Q1H PRN IVP spb more than 120 05/07/17 08:00 06/06/17 07:59 Ondansetron HCl (Zofran) 4 mg Q6H PRN IVP Nausea & Vomiting 05/07/17 08:00 06/06/17 07:59 Ondansetron HCl (Zofran) 4 mg Q6H PRN IVP Nausea & Vomiting 05/07/17 08:00 06/06/17 07:59 Polyethylene Glycol (Miralax) 17 gm DAILYPRN PRN ORAL Constipation 05/07/17 08:00 06/06/17 07:59 Temazepam (Restoril) 15 mg HSPRN PRN ORAL Insomnia 05/07/17 21:00 05/14/17 20:59 Vitamin B Complex/ Vit C/Folic Acid (Nephrovite) 1 tab 3XW ORAL 05/07/17 09:00 06/06/17 08:59 05/07/17 08:57 Vitamin B Complex/ Vit C/Folic Acid (Nephrovite) 1 tab QWEEK ORAL 05/09/17 09:00 06/08/17 08:59 Vitamin D (Vitamin D) 2,000 intlu DAILY ORAL 05/07/17 09:00 06/06/17 08:59 05/08/17 09:00 ALESHA FERRO May 08, 2017 09:59
--- NOTE | 2017-05-08 10:44 | Cardiology Progress Note ---
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 per youself [id number] Objective Last 24 Hour Vital Signs Date Time Temp Pulse Resp B/P (MAP) Pulse Ox O2 Delivery O2 Flow Rate FiO2 05/08/17 08:00 98.1 65 18 156/71 96 Room Air 05/08/17 08:00 72 05/08/17 07:41 78 16 Room Air 21 05/08/17 04:00 97.9 66 20 142/53 97 Room Air 05/08/17 04:00 63 05/08/17 01:35 98.2 05/08/17 00:21 102.2 67 18 158/82 95 Room Air 95.0 05/08/17 00:00 64 05/07/17 20:00 60 05/07/17 20:00 98.1 62 18 153/62 94 Room Air 05/07/17 16:00 59 05/07/17 15:51 98.1 59 18 139/78 95 Room Air 05/07/17 12:42 96.6 56 19 109/59 98 Room Air 05/07/17 12:34 96.6 56 19 109/54 Room Air 05/07/17 12:00 54 Intake and Output 05/08/17 05/09/17 19:00 07:00 Intake Total 120 ml Balance 120 ml Intake Oral 120 ml SATHYA MCKEON May 08, 2017 10:44
[2017-05-08 11:40] LABS: BASOPHILS % (AUTO) 2.3 % (0.0-2.0); EOSINOPHILS % (AUTO) 5.3 % (0.0-3.0); MEAN CORPUSCULAR HEMOGLOBIN 34.4 PG (27.0-31.0); MEAN CORPUSCULAR HGB CONC 34.6 G/DL (32.0-36.0); MEAN CORPUSCULAR VOLUME 99 FL (80-99); MONOCYTES % (AUTO) 9.9 % (1.0-10.0); NEUTROPHILS % (AUTO) 70.6 % (45.0-75.0); PLATELET COUNT 245 K/UL (150-450); RED BLOOD COUNT 2.73 M/UL (4.20-5.40); RED CELL DISTRIBUTION WIDTH 11.9 % (11.6-14.8)
[2017-05-08 11:52] LABS: APPEARANCE,URINE SLIGHTLY CLOUDY; KETONES,URINE NEGATIVE (NEGATIVE); LEUKOCYTE ESTERASE ,URINE NEGATIVE (NEGATIVE); NITRITE,URINE NEGATIVE (NEGATIVE); PH,URINE 8 (4.5-8.0); PROTEIN,URINE 3+ (NEGATIVE); UROBILINOGEN,URINE NORMAL MG/DL (0.0-1.0)
--- NOTE | 2017-05-08 11:55 | Nephrology Progress Note ---
Assessment/Plan Problem List: (1) Hypokalemia (2) ESRD (end stage renal disease) (3) Atrial fibrillation with rapid ventricular response Plan now nsr, repeat K pending, HD today avoid hypokalemia Subjective Constitutional: Reports: weakness HEENT: Reports: no symptoms Genitourinary: Reports: no symptoms Neurologic/Psychiatric: Reports: no symptoms Objective Objective Last 24 Hour Vital Signs Date Time Temp Pulse Resp B/P (MAP) Pulse Ox O2 Delivery O2 Flow Rate FiO2 05/08/17 08:00 98.1 65 18 156/71 96 Room Air 05/08/17 08:00 72 05/08/17 07:41 78 16 Room Air 21 05/08/17 04:00 97.9 66 20 142/53 97 Room Air 05/08/17 04:00 63 05/08/17 01:35 98.2 05/08/17 00:21 102.2 67 18 158/82 95 Room Air 95.0 05/08/17 00:00 64 05/07/17 20:00 60 05/07/17 20:00 98.1 62 18 153/62 94 Room Air 05/07/17 16:00 59 05/07/17 15:51 98.1 59 18 139/78 95 Room Air 05/07/17 12:42 96.6 56 19 109/59 98 Room Air 05/07/17 12:34 96.6 56 19 109/54 Room Air 05/07/17 12:00 54 Intake and Output 05/08/17 05/09/17 19:00 07:00 Intake Total 120 ml Balance 120 ml Intake Oral 120 ml Laboratory Tests 05/08/17 10:55: White Blood Count 6.0, Red Blood Count 2.73L, Hemoglobin 9.4L, Hematocrit 27.1L , Mean Corpuscular Volume 99, Mean Corpuscular Hemoglobin 34.4H, Mean Corpuscular Hemoglobin Concent 34.6, Red Cell Distribution Width 11.9, Platelet Count 245, Mean Platelet Volume 7.0, Neutrophils (%) (Auto) 70.6, Lymphocytes (% ) (Auto) 12.0L, Monocytes (%) (Auto) 9.9, Eosinophils (%) (Auto) 5.3H, Basophils (%) (Auto) 2.3H, Sodium Level [Pending], Potassium Level [Pending], Chloride Level [Pending], Carbon Dioxide Level [Pending], Blood Urea Nitrogen [ Pending], Creatinine [Pending], Estimat Glomerular Filtration Rate [Pending], Glucose Level [Pending], Calcium Level [Pending], Phosphorus Level [Pending], Magnesium Level [Pending], Total Bilirubin [Pending], Aspartate Amino Transf ( AST/SGOT) [Pending], Alanine Aminotransferase (ALT/SGPT) [Pending], Alkaline Phosphatase [Pending], Troponin I [Pending], Pro-B-Type Natriuretic Peptide [ Pending], Total Protein [Pending], Albumin [Pending], Globulin [Pending], Thyroid Stimulating Hormone (TSH) [Pending] 05/08/17 11:25: Urine Color [Pending], Urine Appearance [Pending], Urine pH [Pending], Urine Specific [place] [Pending], Urine Protein [Pending], Urine Glucose (UA) [Pending ], Urine Ketones [Pending], Urine Occult Blood [Pending], Urine Nitrite [Pending ], Urine Bilirubin [Pending], Urine Urobilinogen [Pending], Urine Leukocyte Esterase [Pending], Urine RBC [Pending], Urine WBC [Pending], Urine Squamous Epithelial Cells [Pending], Urine Bacteria [Pending] Height (Feet): 5 Height (Inches): 2.00 Weight (Pounds): 100 General Appearance: no apparent distress, alert EENT: normal ENT inspection Neck: normal alignment Cardiovascular: normal rate, regular rhythm, regularly irregular Respiratory/Chest: lungs clear, normal breath sounds Abdomen: non tender, soft, no organomegaly Extremities: other - no edema 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
[2017-05-08 12:00] VITALS: BP 156/74
[2017-05-08 12:05] LABS: RBC,URINE 0-2 /HPF (0 - 2)
[2017-05-08 12:08] LABS: BACTERIA,URINE FEW /HPF; SQUAMOUS EPITHELIAL CELL,UR MANY /LPF (NONE/OCC)
--- NOTE | 2017-05-08 12:39 | Internal Med Progress Note ---
Subjective Date of Service: May 08, 2017 Physician Name Karyn Stephenson Attending Physician Mesfin Hurt MD Current Medications Medications (Trade) Dose Ordered Sig/Barbara Route PRN Reason Start Time Stop Time Status Last Admin Dose Admin Acetaminophen (Tylenol) 650 mg Q4H PRN ORAL Fever>100.5 05/07/17 08:00 06/06/17 07:59 05/08/17 00:36 Acetaminophen/ Hydrocodone Bitart ([place] 5/325) 1 tab Q6H PRN ORAL Severe Pain (Pain Scale 7-10) 05/07/17 08:00 05/14/17 07:59 Albuterol/ Ipratropium (Albuterol/ Ipratropium) 3 ml Q4H PRN HHN Shortness of Breath 05/07/17 08:00 05/12/17 07:59 Amlodipine Besylate (Norvasc) 10 mg DAILY ORAL 05/07/17 09:00 06/06/17 08:59 Chlorhexidine Gluconate (Bella-Hex 2%) 1 applic DAILY TOPIC 05/07/17 09:00 06/06/17 08:59 05/08/17 09:00 Dextrose (Dextrose 50%) STAT PRN IV Hypoglycemia 05/07/17 08:00 06/06/17 07:59 Heparin Sodium (Porcine) (Heparin 5000 units/ml) 5,000 units EVERY 12 HOURS SUBQ 05/07/17 09:00 06/06/17 08:59 05/08/17 09:17 Heparin Sodium (Porcine) (Heparin Sod 1000 units/ml 10ml) 2,000 unit ONCE IV 05/08/17 06:00 05/08/17 18:00 Hydralazine HCl (Apresoline) 25 mg EVERY 8 HOURS PRN ORAL For SBP > 150 05/07/17 08:00 06/06/17 07:59 Lamotrigine (LaMICtal) 100 mg BEDTIME ORAL 05/07/17 21:00 06/06/17 20:59 05/07/17 21:30 Lamotrigine (LaMICtal) 150 mg DAILY ORAL 05/08/17 09:00 06/07/17 08:59 05/08/17 09:00 Metoprolol Tartrate (Lopressor) 5 mg Q1H PRN IVP spb more than 120 05/07/17 08:00 06/06/17 07:59 Ondansetron HCl (Zofran) 4 mg Q6H PRN IVP Nausea & Vomiting 05/07/17 08:00 06/06/17 07:59 Ondansetron HCl (Zofran) 4 mg Q6H PRN IVP Nausea & Vomiting 05/07/17 08:00 06/06/17 07:59 Polyethylene Glycol (Miralax) 17 gm DAILYPRN PRN ORAL Constipation 05/07/17 08:00 06/06/17 07:59 Temazepam (Restoril) 15 mg HSPRN PRN ORAL Insomnia 05/07/17 21:00 05/14/17 20:59 Vitamin B Complex/ Vit C/Folic Acid (Nephrovite) 1 tab 3XW ORAL 05/07/17 09:00 06/06/17 08:59 05/07/17 08:57 Vitamin B Complex/ Vit C/Folic Acid (Nephrovite) 1 tab QWEEK ORAL 05/09/17 09:00 06/08/17 08:59 Vitamin D (Vitamin D) 2,000 intlu DAILY ORAL 05/07/17 09:00 06/06/17 08:59 05/08/17 09:00 Allergies: Coded Allergies: HYDROMORPHONE (Verified Allergy, Unknown, 05/06/17) KETOROLAC (Verified Allergy, Unknown, 05/06/17) PENICILLINS (Verified Allergy, Unknown, 05/06/17) ROS Limited/Unobtainable: No Constitutional: Reports: fever HEENT: Reports: no symptoms Cardiovascular: Reports: chest pain Respiratory: Reports: shortness of breath Gastrointestinal/Abdominal: Reports: no symptoms Genitourinary: Reports: no symptoms Neurologic/Psychiatric: Reports: no symptoms Subjective 87 YO F admitted with chest pain. Fever to 102.2 F overnight. Cover for Int Aron Hurt. Objective Last Vital Signs Date Time Temp Pulse Resp B/P (MAP) Pulse Ox O2 Delivery O2 Flow Rate FiO2 05/08/17 08:00 98.1 65 18 156/71 96 Room Air 05/08/17 07:41 21 05/08/17 00:21 95.0 General Appearance: WD/WN, no apparent distress, alert EENT: PERRL/EOMI, normal ENT inspection Neck: non-tender, normal alignment, supple, normal inspection Cardiovascular: normal peripheral pulses, normal rate, regular rhythm, no gallop/murmur, no JVD Respiratory/Chest: chest wall non-tender, lungs clear, normal breath sounds, no respiratory distress, no accessory muscle use Abdomen: normal bowel sounds, non tender, soft, no organomegaly, no mass 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, no motor/sensory deficits Skin: normal pigmentation, warm/dry Laboratory Tests Test 05/08/17 10:55 05/08/17 11:25 White Blood Count 6.0 K/UL (4.8-10.8) Red Blood Count 2.73 M/UL (4.20-5.40) L Hemoglobin 9.4 G/DL (12.0-16.0) L Hematocrit 27.1 % (37.0-47.0) L Mean Corpuscular Volume 99 FL (80-99) Mean Corpuscular Hemoglobin 34.4 PG (27.0-31.0) H Mean Corpuscular Hemoglobin Concent 34.6 G/DL (32.0-36.0) Red Cell Distribution Width 11.9 % (11.6-14.8) Platelet Count 245 K/UL (150-450) Mean Platelet Volume 7.0 FL (6.5-10.1) Neutrophils (%) (Auto) 70.6 % (45.0-75.0) Lymphocytes (%) (Auto) 12.0 % (20.0-45.0) L Monocytes (%) (Auto) 9.9 % (1.0-10.0) Eosinophils (%) (Auto) 5.3 % (0.0-3.0) H Basophils (%) (Auto) 2.3 % (0.0-2.0) H Sodium Level Pending Potassium Level Pending Chloride Level Pending Carbon Dioxide Level Pending Blood Urea Nitrogen Pending Creatinine Pending Estimat Glomerular Filtration Rate Pending Glucose Level Pending Calcium Level Pending Phosphorus Level Pending Magnesium Level Pending Total Bilirubin Pending Aspartate Amino Transf (AST/SGOT) Pending Alanine Aminotransferase (ALT/SGPT) Pending Alkaline Phosphatase Pending Troponin I Pending Pro-B-Type Natriuretic Peptide Pending Total Protein Pending Albumin Pending Globulin Pending Thyroid Stimulating Hormone (TSH) Pending Urine Color Pale yellow Urine Appearance Slightly cloudy Urine pH 8 (4.5-8.0) Urine Specific [place] 1.010 (1.005-1.035) Urine Protein 3+ (NEGATIVE) H Urine Glucose (UA) Negative (NEGATIVE) Urine Ketones Negative (NEGATIVE) Urine Occult Blood Negative (NEGATIVE) Urine Nitrite Negative (NEGATIVE) Urine Bilirubin Negative (NEGATIVE) Urine Urobilinogen Normal MG/DL (0.0-1.0) Urine Leukocyte Esterase Negative (NEGATIVE) Urine RBC 0-2 /HPF (0 - 2) Urine WBC 2-4 /HPF (0 - 2) Urine Squamous Epithelial Cells Many /LPF (NONE/OCC) H Urine Bacteria Few /HPF (NONE) Microbiology Date/Time Source Procedure Growth Status 05/07/17 02:00 Nasal Nares MRSA Culture - Final NO METHICILLIN RESISTANT STAPH AUREUS... Complete Intake and Output 05/08/17 05/09/17 19:00 07:00 Intake Total 120 ml Balance 120 ml Intake Oral 120 ml Assessment/Plan Problem List: (1) Fever Assessment & Plan: Await ID consult and culture results. Start IV Vanco and levaquin for now. (2) Elevated troponin (3) Seizure disorder (4) Chest pain (5) SOB (shortness of breath) (6) Atrial fibrillation with rapid ventricular response Assessment & Plan: Currently sinus. See cardiology note. (7) ESRD (end stage renal disease) Assessment & Plan: See nephrology note. Hemodialysis today. Status: not improved KARYN STEPHENSON May 08, 2017 12:39
[2017-05-08 13:14] LABS: ALANINE AMINOTRANSFERASE 15 U/L (12-78); ALBUMIN/GLOBULIN RATIO 0.8 (1.0-2.7); ANION GAP 9 mmol/L (5-15); ASPARTATE AMINO TRANSFERASE 18 U/L (15-37); CALCIUM 8.2 MG/DL (8.5-10.1); CARBON DIOXIDE 27 MMOL/L (21-32); CHLORIDE 101 MMOL/L (98-107); CREATININE 3.9 MG/DL (0.55-1.30); MAGNESIUM 1.7 MG/DL (1.8-2.4); PHOSPHORUS 2.7 MG/DL (2.5-4.9); POTASSIUM 4.3 MMOL/L (3.5-5.1); SODIUM 137 MMOL/L (136-145)
[2017-05-08] MEDS ORDERED: Vancomycin 1gm/D5W 275ml IVPB ONE ×2 (15:00)
[2017-05-08 16:44] VITALS: BP 146/69
[2017-05-09] VITALS (7 sets, daily range): BP systolic 115–135; BP diastolic 55–67
--- NOTE | 2017-05-09 01:17 | Consultation ---
History of Present Illness General Date patient seen: May 08, 2017 Chief Complaint: Palpitations Reason for Consultation: Dr. Quiñones Present Illness HPI 87 y/o F with hx of HTN, Afib, seizure disorder, ESRD on HD TTS, s/p L femur ORIF, b/l leg fx s/p ORIF, s/p NYA for fibroid tumor, HLD, anemia, R eye blindness, Osteopenia, 2ry hyperparathyroidism, chronic CHF presents to ED on because of palpitations, lightheadedness, NATION, CP and SOB towards the end of HD treatment. the pt endorses anxiety and c/o insomnia however the pt is not open to taking medications. the pt denied any manic/depressive or psychotic sxs. Allergies: Coded Allergies: HYDROMORPHONE (Verified Allergy, Unknown, 05/06/17) KETOROLAC (Verified Allergy, Unknown, 05/06/17) PENICILLINS (Verified Allergy, Unknown, 05/06/17) Medication History Scheduled Amlodipine Besylate* (Amlodipine Besylate*), 10 MG ORAL DAILY, (Reported) Hydralazine Hcl* (Hydralazine Hcl*), 25 MG ORAL EVERY 8 HOURS, (Reported) Lamotrigine* (Lamictal*), 150 MG ORAL DAILY, (Reported) Lamotrigine* (Lamictal*), 100 MG ORAL BEDTIME, (Reported) Vit B Cmplx 3/Fa/Vit C/Biotin (Nephro-Jadon Rx Tablet), 1 EACH PO 3XW, (Reported) Scheduled PRN Acetaminophen* (Tylenol Extra Strength*), 325 MG ORAL Q6H PRN for Mild Pain/ Temp > 100.5, (Reported) Discontinued Medications Carvedilol* (Carvedilol*), 6.25 MG ORAL EVERY 12 HOURS, (Reported) Discontinued Reason: Pt stopped taking med Furosemide* (Lasix*), 40 MG ORAL DAILY, (Reported) Discontinued Reason: Pt stopped taking med Patient History History Provided By: Patient, Medical Record, PMD Healthcare decision maker Resuscitation status Full Code Advanced Directive on File Past Medical/Surgical History Past Medical/Surgical History: (1) Hypokalemia (2) ESRD (end stage renal disease) (3) NSTEMI (non-ST elevated myocardial infarction) (4) Atrial fibrillation with rapid ventricular response (5) Atrial fibrillation (6) Fever (7) SOB (shortness of breath) (8) Seizure disorder (9) Chest pain (10) Elevated troponin Review of Systems Psychiatric: Reports: prior hx, anxiety, depressed feelings, emotional problems Physical Exam General Appearance: no apparent distress, alert, overweight Neurologic: alert, oriented x 3, responsive, depressed affect Last 24 Hour Vital Signs Date Time Temp Pulse Resp B/P (MAP) Pulse Ox O2 Delivery O2 Flow Rate FiO2 05/09/17 00:19 99.7 83 20 135/67 95 Room Air 05/08/17 20:02 67 16 Room Air 05/08/17 16:44 98.8 67 18 146/69 98 Room Air 05/08/17 16:00 67 05/08/17 12:00 98.4 66 18 156/74 99 Room Air 05/08/17 12:00 67 05/08/17 08:00 98.1 65 18 156/71 96 Room Air 05/08/17 08:00 72 05/08/17 07:41 78 16 Room Air 21 05/08/17 04:00 97.9 66 20 142/53 97 Room Air 05/08/17 04:00 63 05/08/17 01:35 98.2 Laboratory Tests Test 05/08/17 10:55 05/08/17 11:25 05/08/17 14:50 White Blood Count 6.0 K/UL (4.8-10.8) Red Blood Count 2.73 M/UL (4.20-5.40) L Hemoglobin 9.4 G/DL (12.0-16.0) L Hematocrit 27.1 % (37.0-47.0) L Mean Corpuscular Volume 99 FL (80-99) Mean Corpuscular Hemoglobin 34.4 PG (27.0-31.0) H Mean Corpuscular Hemoglobin Concent 34.6 G/DL (32.0-36.0) Red Cell Distribution Width 11.9 % (11.6-14.8) Platelet Count 245 K/UL (150-450) Mean Platelet Volume 7.0 FL (6.5-10.1) Neutrophils (%) (Auto) 70.6 % (45.0-75.0) Lymphocytes (%) (Auto) 12.0 % (20.0-45.0) L Monocytes (%) (Auto) 9.9 % (1.0-10.0) Eosinophils (%) (Auto) 5.3 % (0.0-3.0) H Basophils (%) (Auto) 2.3 % (0.0-2.0) H Sodium Level 137 MMOL/L (136-145) Potassium Level 4.3 MMOL/L (3.5-5.1) # Chloride Level 101 MMOL/L (98-107) Carbon Dioxide Level 27 MMOL/L (21-32) Anion Gap 9 mmol/L (5-15) Blood Urea Nitrogen 35 mg/dL (7-18) H Creatinine 3.9 MG/DL (0.55-1.30) #H Estimat Glomerular Filtration Rate mL/min (>60) Glucose Level 71 MG/DL (74-106) L Calcium Level 8.2 MG/DL (8.5-10.1) L Phosphorus Level 2.7 MG/DL (2.5-4.9) Magnesium Level 1.7 MG/DL (1.8-2.4) L Total Bilirubin 0.4 MG/DL (0.2-1.0) Aspartate Amino Transf (AST/SGOT) 18 U/L (15-37) Alanine Aminotransferase (ALT/SGPT) 15 U/L (12-78) Alkaline Phosphatase 79 U/L (46-116) Troponin I 0.830 ng/mL (0.000-0.056) 0.768 ng/mL (0.000-0.056) Pro-B-Type Natriuretic Peptide 67116 pg/mL (0-125) H Total Protein 6.0 G/DL (6.4-8.2) L Albumin 2.7 G/DL (3.4-5.0) L Globulin 3.3 g/dL Albumin/Globulin Ratio 0.8 (1.0-2.7) L Thyroid Stimulating Hormone (TSH) 2.120 uiU/mL (0.360-3.740) Urine Color Pale yellow Urine Appearance Slightly cloudy Urine pH 8 (4.5-8.0) Urine Specific [place] 1.010 (1.005-1.035) Urine Protein 3+ (NEGATIVE) H Urine Glucose (UA) Negative (NEGATIVE) Urine Ketones Negative (NEGATIVE) Urine Occult Blood Negative (NEGATIVE) Urine Nitrite Negative (NEGATIVE) Urine Bilirubin Negative (NEGATIVE) Urine Urobilinogen Normal MG/DL (0.0-1.0) Urine Leukocyte Esterase Negative (NEGATIVE) Urine RBC 0-2 /HPF (0 - 2) Urine WBC 2-4 /HPF (0 - 2) Urine Squamous Epithelial Cells Many /LPF (NONE/OCC) H Urine Bacteria Few /HPF (NONE) Height (Feet): 5 Height (Inches): 2.00 Weight (Pounds): 100 Medications Current Medications Medications (Trade) Dose Ordered Sig/Barbara Route PRN Reason Start Time Stop Time Status Last Admin Dose Admin Acetaminophen (Tylenol) 650 mg Q4H PRN ORAL Fever>100.5 05/07/17 08:00 06/06/17 07:59 05/08/17 00:36 Acetaminophen/ Hydrocodone Bitart ([place] 5/325) 1 tab Q6H PRN ORAL Severe Pain (Pain Scale 7-10) 05/07/17 08:00 05/14/17 07:59 Albuterol/ Ipratropium (Albuterol/ Ipratropium) 3 ml Q4H PRN HHN Shortness of Breath 05/07/17 08:00 05/12/17 07:59 Amlodipine Besylate (Norvasc) 10 mg DAILY ORAL 05/07/17 09:00 06/06/17 08:59 Chlorhexidine Gluconate (Bella-Hex 2%) 1 applic DAILY TOPIC 05/07/17 09:00 06/06/17 08:59 05/08/17 09:00 Dextrose (Dextrose 50%) STAT PRN IV Hypoglycemia 05/07/17 08:00 06/06/17 07:59 Heparin Sodium (Porcine) (Heparin 5000 units/ml) 5,000 units EVERY 12 HOURS SUBQ 05/07/17 09:00 06/06/17 08:59 05/08/17 21:13 Hydralazine HCl (Apresoline) 25 mg EVERY 8 HOURS PRN ORAL For SBP > 150 05/07/17 08:00 06/06/17 07:59 Lamotrigine (LaMICtal) 100 mg BEDTIME ORAL 05/07/17 21:00 06/06/17 20:59 05/08/17 21:13 Lamotrigine (LaMICtal) 150 mg DAILY ORAL 05/08/17 09:00 06/07/17 08:59 05/08/17 09:00 Levofloxacin 50 ml @ 50 mls/hr Q48H IVPB 05/10/17 18:00 05/17/17 17:59 Metoprolol Tartrate (Lopressor) 5 mg Q1H PRN IVP spb more than 120 05/07/17 08:00 06/06/17 07:59 Ondansetron HCl (Zofran) 4 mg Q6H PRN IVP Nausea & Vomiting 05/07/17 08:00 06/06/17 07:59 Polyethylene Glycol (Miralax) 17 gm DAILYPRN PRN ORAL Constipation 05/07/17 08:00 06/06/17 07:59 Temazepam (Restoril) 15 mg HSPRN PRN ORAL Insomnia 05/07/17 21:00 05/14/17 20:59 Vancomycin HCl (Vanco rx to dose) 1 ea DAILY PRN MISC Per rx protocol 05/08/17 12:30 06/07/17 12:29 Vitamin B Complex/ Vit C/Folic Acid (Nephrovite) 1 tab 3XW ORAL 05/07/17 09:00 06/06/17 08:59 05/07/17 08:57 Vitamin B Complex/ Vit C/Folic Acid (Nephrovite) 1 tab QWEEK ORAL 05/09/17 09:00 06/08/17 08:59 Vitamin D (Vitamin D) 2,000 intlu DAILY ORAL 05/07/17 09:00 06/06/17 08:59 05/08/17 09:00 Assessment/Plan Status: stable Assessment/Plan anxiety d/o start lexapro 10mg Alvarez Christina M.D. May 09, 2017 01:17
[2017-05-09] MEDS: Dyna-Hex 2% Top Sol 2oz TOPIC SCH (08:16)
[2017-05-09] MEDS: Vitamin D 1000 IU Tab ORAL SCH (08:16)
[2017-05-09] MEDS: LaMICtal 150mg tab ORAL SCH (08:16)
[2017-05-09] MEDS: Heparin 5000 units/ml inj SUBQ SCH ×2 (08:25→20:17)
[2017-05-09] MEDS ORDERED: Nephrovite tab (Rena-Vite) ORAL SCH (09:00)
--- NOTE | 2017-05-09 09:24 | Pulmonology Progress Note ---
Assessment/Plan Problems: (1) Fever (2) Atrial fibrillation with rapid ventricular response (3) ESRD (end stage renal disease) (4) Hypokalemia (5) NSTEMI (non-ST elevated myocardial infarction) Assessment/Plan check troponin heart rate controlled pt insists on eating regular diet. HD by nephrology panculture antibiotics by ID Subjective ROS Limited/Unobtainable: No Interval Events: wants some potatoes without gravy Allergies: Coded Allergies: HYDROMORPHONE (Verified Allergy, Unknown, 05/06/17) KETOROLAC (Verified Allergy, Unknown, 05/06/17) PENICILLINS (Verified Allergy, Unknown, 05/06/17) Objective Last 24 Hour Vital Signs Date Time Temp Pulse Resp B/P (MAP) Pulse Ox O2 Delivery O2 Flow Rate FiO2 05/09/17 08:54 98.8 71 18 130/60 98 Room Air 05/09/17 08:16 81 126/59 05/09/17 07:52 81 18 Room Air 21 05/09/17 04:30 98.9 05/09/17 04:10 100.4 79 20 126/59 96 Room Air 05/09/17 04:00 82 05/09/17 00:19 99.7 83 20 135/67 95 Room Air 05/09/17 00:00 73 05/08/17 23:30 83 135/67 05/08/17 20:02 67 16 Room Air 05/08/17 20:00 67 05/08/17 16:44 98.8 67 18 146/69 98 Room Air 05/08/17 16:00 67 05/08/17 12:00 98.4 66 18 156/74 99 Room Air 05/08/17 12:00 67 Intake and Output 05/09/17 05/10/17 19:00 07:00 Intake Total 240 ml Balance 240 ml Intake Oral 240 ml General Appearance: cachetic HEENT: normocephalic, atraumatic Respiratory/Chest: chest wall non-tender, lungs clear Cardiovascular: no gallop/murmur Abdomen: normal bowel sounds, soft, non tender Extremities: no cyanosis Skin: no rash Microbiology Date/Time Source Procedure Growth Status 05/07/17 02:00 Nasal Nares MRSA Culture - Final NO METHICILLIN RESISTANT STAPH AUREUS... Complete Laboratory Tests 05/08/17 10:55: White Blood Count 6.0, Red Blood Count 2.73L, Hemoglobin 9.4L, Hematocrit 27.1L , Mean Corpuscular Volume 99, Mean Corpuscular Hemoglobin 34.4H, Mean Corpuscular Hemoglobin Concent 34.6, Red Cell Distribution Width 11.9, Platelet Count 245, Mean Platelet Volume 7.0, Neutrophils (%) (Auto) 70.6, Lymphocytes (% ) (Auto) 12.0L, Monocytes (%) (Auto) 9.9, Eosinophils (%) (Auto) 5.3H, Basophils (%) (Auto) 2.3H, Sodium Level 137, Potassium Level 4.3#, Chloride Level 101, Carbon Dioxide Level 27, Anion Gap 9, Blood Urea Nitrogen 35H, Creatinine 3.9#H, Estimat Glomerular Filtration Rate , Glucose Level 71L, Calcium Level 8.2L, Phosphorus Level 2.7, Magnesium Level 1.7L, Total Bilirubin 0.4, Aspartate Amino Transf (AST/SGOT) 18, Alanine Aminotransferase (ALT/SGPT) 15, Alkaline Phosphatase 79, Troponin I 0.830H, Pro-B-Type Natriuretic Peptide 12452R, Total Protein 6.0L, Albumin 2.7L, Globulin 3.3, Albumin/Globulin Ratio 0.8L, Thyroid Stimulating Hormone (TSH) 2.120 05/08/17 11:25: Urine Color Pale yellow, Urine Appearance Slightly cloudy, Urine pH 8, Urine Specific [place] 1.010, Urine Protein 3+H, Urine Glucose (UA) Negative, Urine Ketones Negative, Urine Occult Blood Negative, Urine Nitrite Negative, Urine Bilirubin Negative, Urine Urobilinogen Normal, Urine Leukocyte Esterase Negative , Urine RBC 0-2, Urine WBC 2-4, Urine Squamous Epithelial Cells ManyH, Urine Bacteria Few 05/08/17 14:50: Troponin I 0.768H Current Medications Medications (Trade) Dose Ordered Sig/Barbara Route PRN Reason Start Time Stop Time Status Last Admin Dose Admin Acetaminophen (Tylenol) 650 mg Q4H PRN ORAL Fever>100.5 05/07/17 08:00 06/06/17 07:59 05/08/17 00:36 Acetaminophen/ Hydrocodone Bitart ([place] 5/325) 1 tab Q6H PRN ORAL Severe Pain (Pain Scale 7-10) 05/07/17 08:00 05/14/17 07:59 Albuterol/ Ipratropium (Albuterol/ Ipratropium) 3 ml Q4H PRN HHN Shortness of Breath 05/07/17 08:00 05/12/17 07:59 Amlodipine Besylate (Norvasc) 10 mg DAILY ORAL 05/07/17 09:00 06/06/17 08:59 05/09/17 08:16 Chlorhexidine Gluconate (Bella-Hex 2%) 1 applic DAILY TOPIC 05/07/17 09:00 06/06/17 08:59 05/09/17 08:16 Dextrose (Dextrose 50%) STAT PRN IV Hypoglycemia 05/07/17 08:00 06/06/17 07:59 Heparin Sodium (Porcine) (Heparin 5000 units/ml) 5,000 units EVERY 12 HOURS SUBQ 05/07/17 09:00 06/06/17 08:59 05/09/17 08:25 Hydralazine HCl (Apresoline) 25 mg EVERY 8 HOURS PRN ORAL For SBP > 150 05/07/17 08:00 06/06/17 07:59 Lamotrigine (LaMICtal) 100 mg BEDTIME ORAL 05/07/17 21:00 06/06/17 20:59 05/08/17 21:13 Lamotrigine (LaMICtal) 150 mg DAILY ORAL 05/08/17 09:00 06/07/17 08:59 05/09/17 08:16 Levofloxacin (Levaquin) 250 mg Q48H ORAL 05/10/17 18:00 05/17/17 17:59 Metoprolol Tartrate (Lopressor) 5 mg Q1H PRN IVP spb more than 120 05/07/17 08:00 06/06/17 07:59 Ondansetron HCl (Zofran) 4 mg Q6H PRN IVP Nausea & Vomiting 05/07/17 08:00 06/06/17 07:59 Polyethylene Glycol (Miralax) 17 gm DAILYPRN PRN ORAL Constipation 05/07/17 08:00 06/06/17 07:59 Temazepam (Restoril) 15 mg HSPRN PRN ORAL Insomnia 05/07/17 21:00 05/14/17 20:59 Vitamin B Complex/ Vit C/Folic Acid (Nephrovite) 1 tab 3XW ORAL 05/07/17 09:00 06/06/17 08:59 05/07/17 08:57 Vitamin B Complex/ Vit C/Folic Acid (Nephrovite) 1 tab QWEEK ORAL 05/09/17 09:00 06/08/17 08:59 05/09/17 08:16 Vitamin D (Vitamin D) 2,000 intlu DAILY ORAL 05/07/17 09:00 06/06/17 08:59 05/09/17 08:16 ALESHA FERRO May 09, 2017 09:24
[2017-05-09] MEDS ORDERED: Aztreonam Inj 1 GM in NS 50 ML IVPB ONE (11:00)
[2017-05-09] MEDS ORDERED: 1/2 NS 1000ml IV ONE (11:13)
[2017-05-09] MEDS ORDERED: D5W 275ml ONE (11:13)
[2017-05-09] MEDS ORDERED: Tubing IV Secondary IV ONE ×2 (11:13→15:36)
[2017-05-09] MEDS ORDERED: Vancomycin 1gm/D5W 275ml IVPB ONE ×2 (11:30)
--- NOTE | 2017-05-09 12:43 | Nephrology Progress Note ---
Assessment/Plan Problem List: (1) Hypokalemia (2) ESRD (end stage renal disease) (3) Atrial fibrillation with rapid ventricular response (4) Elevated troponin Plan now nsr, repeat K normal, HD TTS avoid hypokalemia Subjective Constitutional: Reports: weakness HEENT: Reports: no symptoms Genitourinary: Reports: no symptoms Neurologic/Psychiatric: Reports: no symptoms Objective Objective Last 24 Hour Vital Signs Date Time Temp Pulse Resp B/P (MAP) Pulse Ox O2 Delivery O2 Flow Rate FiO2 05/09/17 12:37 97.9 69 18 115/56 99 Room Air 05/09/17 08:54 98.8 71 18 130/60 98 Room Air 05/09/17 08:16 81 126/59 05/09/17 07:52 81 18 Room Air 21 05/09/17 04:30 98.9 05/09/17 04:10 100.4 79 20 126/59 96 Room Air 05/09/17 04:00 82 05/09/17 00:19 99.7 83 20 135/67 95 Room Air 05/09/17 00:00 73 05/08/17 23:30 83 135/67 05/08/17 20:02 67 16 Room Air 05/08/17 20:00 67 05/08/17 16:44 98.8 67 18 146/69 98 Room Air 05/08/17 16:00 67 Intake and Output 05/09/17 05/10/17 19:00 07:00 Intake Total 240 ml Balance 240 ml Intake Oral 240 ml # Voids 1 Laboratory Tests 05/08/17 14:50: Troponin I 0.768H Height (Feet): 5 Height (Inches): 2.00 Weight (Pounds): 100 General Appearance: no apparent distress, alert EENT: normal ENT inspection Neck: normal alignment, supple Cardiovascular: regular rhythm Respiratory/Chest: lungs clear Abdomen: non tender, soft Extremities: other - no edema 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
--- NOTE | 2017-05-09 13:02 | Consultation ---
History of Present Illness General Date patient seen: May 09, 2017 Time patient seen: 13:02 Chief Complaint: Palpitations Reason for Consultation: Dr. Quiñones Present Illness HPI 87 y/o F with hx of HTN, Afib, seizure disorder, ESRD on HD TTS, s/p L femur ORIF, b/l leg fx s/p ORIF, s/p NYA for fibroid tumor, HLD, anemia, R eye blindness, Osteopenia, 2ry hyperparathyroidism, chronic dCHF presents to ED on 05/06 because of palpitations, lightheadedness, NATION, CP and SOB towards the end of HD treatment; no syncopal episode. On ED found to be on Afib with RVR and was given IV Cardizem Denies n/v/d, or feeling unwell prior to HD, hematuria/dysuria . Patient refers was following an ID physician at [facility] and was getting some IV abx at HD center; unable to tell me name and duration and nature of infection. She refers about few weeks ago she noticed some itchy rash in abdomen who spread to her back and was getting medical attention for that. Rash has now resolved. Patient uanble to tell me etiology of rash. Initially afebrile but yesterday at midnight spike T up to 102.8. and today low grade fever Tm 100.4. Started on IV Vanco and levofloxacin- aztreonam added today. No leukocytosis. CXR clear. Bcx pending. u/a neg Allergies: Coded Allergies: HYDROMORPHONE (Verified Allergy, Unknown, 05/06/17) KETOROLAC (Verified Allergy, Unknown, 05/06/17) PENICILLINS (Verified Allergy, Unknown, 05/06/17) Medication History Scheduled Amlodipine Besylate* (Amlodipine Besylate*), 10 MG ORAL DAILY, (Reported) Hydralazine Hcl* (Hydralazine Hcl*), 25 MG ORAL EVERY 8 HOURS, (Reported) Lamotrigine* (Lamictal*), 150 MG ORAL DAILY, (Reported) Lamotrigine* (Lamictal*), 100 MG ORAL BEDTIME, (Reported) Vit B Cmplx 3/Fa/Vit C/Biotin (Nephro-Jadon Rx Tablet), 1 EACH PO 3XW, (Reported) Scheduled PRN Acetaminophen* (Tylenol Extra Strength*), 325 MG ORAL Q6H PRN for Mild Pain/ Temp > 100.5, (Reported) Discontinued Medications Carvedilol* (Carvedilol*), 6.25 MG ORAL EVERY 12 HOURS, (Reported) Discontinued Reason: Pt stopped taking med Furosemide* (Lasix*), 40 MG ORAL DAILY, (Reported) Discontinued Reason: Pt stopped taking med Patient History Healthcare decision maker Resuscitation status Full Code Advanced Directive on File Patient History Narrative PMhx: as above SH: The patient is . The patient denies tobacco or alcohol use. Fhx: non contributory Review of Systems All Other Systems: negative except mentioned in HPI Physical Exam Physical Exam Narrative GENERAL: The patient is a well-developed and well-nourished thin-appearing white female, in no apparent distress. HEENT: Eyes, pupils are equal and responsive to light and accommodation. Extraocular movements are intact. NECK: Supple without lymphadenopathy. CHEST: Lungs are clear to auscultation bilaterally without wheezes or rales. CARDIOVASCULAR: Tachycardic. Irregular rhythm. Irregular rate. S1 and S2 normal without murmurs, rubs, or gallops. ABDOMEN: Soft, nontender, and nondistended. Positive bowel sounds. No evidence of hepatosplenomegaly. Current no rebound or guarding noted. EXTREMITIES: Negative for clubbing, cyanosis, or edema. RECTAL/GENITAL: Refused. NEUROLOGIC: Cranial nerves II to XII are grossly intact without focal deficits. Motor strength is 5/5 bilaterally. Deep tendon reflexes are 2+ plantar. Last 24 Hour Vital Signs Date Time Temp Pulse Resp B/P (MAP) Pulse Ox O2 Delivery O2 Flow Rate FiO2 05/09/17 12:37 97.9 69 18 115/56 99 Room Air 05/09/17 08:54 98.8 71 18 130/60 98 Room Air 05/09/17 08:16 81 126/59 05/09/17 07:52 81 18 Room Air 21 05/09/17 04:30 98.9 05/09/17 04:10 100.4 79 20 126/59 96 Room Air 05/09/17 04:00 82 05/09/17 00:19 99.7 83 20 135/67 95 Room Air 05/09/17 00:00 73 05/08/17 23:30 83 135/67 05/08/17 20:02 67 16 Room Air 05/08/17 20:00 67 05/08/17 16:44 98.8 67 18 146/69 98 Room Air 05/08/17 16:00 67 Intake and Output 05/09/17 05/10/17 19:00 07:00 Intake Total 240 ml Balance 240 ml Intake Oral 240 ml # Voids 1 Laboratory Tests Test 05/08/17 14:50 Troponin I 0.768 ng/mL (0.000-0.056) Height (Feet): 5 Height (Inches): 2.00 Weight (Pounds): 100 Medications Current Medications Medications (Trade) Dose Ordered Sig/Barbara Route PRN Reason Start Time Stop Time Status Last Admin Dose Admin Acetaminophen (Tylenol) 650 mg Q4H PRN ORAL Fever>100.5 05/07/17 08:00 06/06/17 07:59 05/08/17 00:36 Acetaminophen/ Hydrocodone Bitart ([place] 5/325) 1 tab Q6H PRN ORAL Severe Pain (Pain Scale 7-10) 05/07/17 08:00 05/14/17 07:59 Albuterol/ Ipratropium (Albuterol/ Ipratropium) 3 ml Q4H PRN HHN Shortness of Breath 05/07/17 08:00 05/12/17 07:59 Amlodipine Besylate (Norvasc) 10 mg DAILY ORAL 05/07/17 09:00 06/06/17 08:59 05/09/17 08:16 Aztreonam 0.5 gm/ Dextrose 55 ml @ 110 mls/hr Q12HR IVPB 05/09/17 21:00 05/16/17 20:59 Chlorhexidine Gluconate (Bella-Hex 2%) 1 applic DAILY TOPIC 05/07/17 09:00 06/06/17 08:59 05/09/17 08:16 Dextrose (Dextrose 50%) STAT PRN IV Hypoglycemia 05/07/17 08:00 06/06/17 07:59 Heparin Sodium (Porcine) (Heparin 5000 units/ml) 5,000 units EVERY 12 HOURS SUBQ 05/07/17 09:00 06/06/17 08:59 05/09/17 08:25 Hydralazine HCl (Apresoline) 25 mg EVERY 8 HOURS PRN ORAL For SBP > 150 05/07/17 08:00 06/06/17 07:59 Lamotrigine (LaMICtal) 100 mg BEDTIME ORAL 05/07/17 21:00 06/06/17 20:59 05/08/17 21:13 Lamotrigine (LaMICtal) 150 mg DAILY ORAL 05/08/17 09:00 06/07/17 08:59 05/09/17 08:16 Levofloxacin (Levaquin) 250 mg Q48H ORAL 05/10/17 18:00 05/17/17 17:59 Metoprolol Tartrate (Lopressor) 5 mg Q1H PRN IVP spb more than 120 05/07/17 08:00 06/06/17 07:59 Ondansetron HCl (Zofran) 4 mg Q6H PRN IVP Nausea & Vomiting 05/07/17 08:00 06/06/17 07:59 Polyethylene Glycol (Miralax) 17 gm DAILYPRN PRN ORAL Constipation 05/07/17 08:00 06/06/17 07:59 Temazepam (Restoril) 15 mg HSPRN PRN ORAL Insomnia 05/07/17 21:00 05/14/17 20:59 Vancomycin HCl (Vanco rx to dose) 1 ea DAILY PRN MISC Per rx protocol 05/09/17 09:30 06/08/17 09:29 Vitamin B Complex/ Vit C/Folic Acid (Nephrovite) 1 tab 3XW ORAL 05/07/17 09:00 06/06/17 08:59 05/07/17 08:57 Vitamin B Complex/ Vit C/Folic Acid (Nephrovite) 1 tab QWEEK ORAL 05/09/17 09:00 06/08/17 08:59 05/09/17 08:16 Vitamin D (Vitamin D) 2,000 intlu DAILY ORAL 05/07/17 09:00 06/06/17 08:59 05/09/17 08:16 Assessment/Plan Assessment/Plan Abx: IV Vancomycin 05/08- Levaquin 05/08- Aztreonam 05/09- Assesment: FEver- r/o bacteremia -u.a neg -Bcx pending -CXR no acute process -no leukocytosis Afib with RVR SOB/lightheadness- 2ry to above Troponinemia HTN Afib ESRD on HD TTS chronic dCHF seizure disorder, s/p L femur ORIF, b/l leg fx s/p ORIF, s/p NYA for fibroid tumor, HLD, anemia, R eye blindness, Osteopenia, 2ry hyperparathyroidism, Plan: -Continue IV Vanco #2, Levaquin #2 and Aztreonam #1 pending cx -f/u cx -Monitor CBC/bmp, temperatures -aspiration precautions Thank you for this consultation. Will continue to follow along with you. Discussed with Krystal Burciaga M.D. May 09, 2017 13:02
--- NOTE | 2017-05-09 14:41 | Internal Med Progress Note ---
Subjective Date of Service: May 09, 2017 Physician Name Karyn Stephenson Attending Physician Mesfin Hurt MD Current Medications Medications (Trade) Dose Ordered Sig/Barbara Route PRN Reason Start Time Stop Time Status Last Admin Dose Admin Acetaminophen (Tylenol) 650 mg Q4H PRN ORAL Fever>100.5 05/07/17 08:00 06/06/17 07:59 05/08/17 00:36 Acetaminophen/ Hydrocodone Bitart ([place] 5/325) 1 tab Q6H PRN ORAL Severe Pain (Pain Scale 7-10) 05/07/17 08:00 05/14/17 07:59 Albuterol/ Ipratropium (Albuterol/ Ipratropium) 3 ml Q4H PRN HHN Shortness of Breath 05/07/17 08:00 05/12/17 07:59 Amlodipine Besylate (Norvasc) 10 mg DAILY ORAL 05/07/17 09:00 06/06/17 08:59 05/09/17 08:16 Aztreonam 0.5 gm/ Dextrose 55 ml @ 110 mls/hr Q12HR IVPB 05/09/17 21:00 05/16/17 20:59 Chlorhexidine Gluconate (Bella-Hex 2%) 1 applic DAILY TOPIC 05/07/17 09:00 06/06/17 08:59 05/09/17 08:16 Dextrose (Dextrose 50%) STAT PRN IV Hypoglycemia 05/07/17 08:00 06/06/17 07:59 Heparin Sodium (Porcine) (Heparin 5000 units/ml) 5,000 units EVERY 12 HOURS SUBQ 05/07/17 09:00 06/06/17 08:59 05/09/17 08:25 Hydralazine HCl (Apresoline) 25 mg EVERY 8 HOURS PRN ORAL For SBP > 150 05/07/17 08:00 06/06/17 07:59 Lamotrigine (LaMICtal) 100 mg BEDTIME ORAL 05/07/17 21:00 06/06/17 20:59 05/08/17 21:13 Lamotrigine (LaMICtal) 150 mg DAILY ORAL 05/08/17 09:00 06/07/17 08:59 05/09/17 08:16 Levofloxacin (Levaquin) 250 mg Q48H ORAL 05/10/17 18:00 05/17/17 17:59 Metoprolol Tartrate (Lopressor) 5 mg Q1H PRN IVP spb more than 120 05/07/17 08:00 06/06/17 07:59 Ondansetron HCl (Zofran) 4 mg Q6H PRN IVP Nausea & Vomiting 05/07/17 08:00 06/06/17 07:59 Polyethylene Glycol (Miralax) 17 gm DAILYPRN PRN ORAL Constipation 05/07/17 08:00 06/06/17 07:59 Temazepam (Restoril) 15 mg HSPRN PRN ORAL Insomnia 05/07/17 21:00 05/14/17 20:59 Vancomycin HCl (Vanco rx to dose) 1 ea DAILY PRN MISC Per rx protocol 05/09/17 09:30 06/08/17 09:29 Vitamin B Complex/ Vit C/Folic Acid (Nephrovite) 1 tab 3XW ORAL 05/07/17 09:00 06/06/17 08:59 05/07/17 08:57 Vitamin B Complex/ Vit C/Folic Acid (Nephrovite) 1 tab QWEEK ORAL 05/09/17 09:00 06/08/17 08:59 05/09/17 08:16 Vitamin D (Vitamin D) 2,000 intlu DAILY ORAL 05/07/17 09:00 06/06/17 08:59 05/09/17 08:16 Allergies: Coded Allergies: HYDROMORPHONE (Verified Allergy, Unknown, 05/06/17) KETOROLAC (Verified Allergy, Unknown, 05/06/17) PENICILLINS (Verified Allergy, Unknown, 05/06/17) ROS Limited/Unobtainable: No Constitutional: Reports: fever HEENT: Reports: no symptoms Cardiovascular: Reports: chest pain Respiratory: Reports: no symptoms Gastrointestinal/Abdominal: Reports: no symptoms Genitourinary: Reports: no symptoms Neurologic/Psychiatric: Reports: no symptoms Subjective 87 YO F admitted with chest pain. Fever to 100.4 F overnight. Cover for Int Aron - Dr Hurt. Objective Last Vital Signs Date Time Temp Pulse Resp B/P (MAP) Pulse Ox O2 Delivery O2 Flow Rate FiO2 05/09/17 12:37 97.9 69 18 115/56 99 Room Air 05/09/17 07:52 21 05/08/17 00:21 95.0 Laboratory Tests Test 05/08/17 14:50 Troponin I 0.768 ng/mL (0.000-0.056) Microbiology Date/Time Source Procedure Growth Status 05/07/17 02:00 Nasal Nares MRSA Culture - Final NO METHICILLIN RESISTANT STAPH AUREUS... Complete 05/07/17 02:00 Rectum VRE Culture - Final Enterococcus Faecalis - Vre Complete Intake and Output 05/09/17 05/10/17 19:00 07:00 Intake Total 360 ml Balance 360 ml Intake Oral 360 ml # Voids 1 Objective General Appearance: WD/WN, no apparent distress, alert EENT: PERRL/EOMI, normal ENT inspection Neck: non-tender, normal alignment, supple, normal inspection Cardiovascular: normal peripheral pulses, normal rate, regular rhythm, no gallop/murmur, no JVD Respiratory/Chest: chest wall non-tender, lungs clear, normal breath sounds, no respiratory distress, no accessory muscle use Abdomen: normal bowel sounds, non tender, soft, no organomegaly, no mass Neurologic: administrative coordinator II-XII grossly normal, no motor/sensory deficits Skin: normal pigmentation, warm/dry Assessment/Plan Problem List: (1) Fever Assessment & Plan: Await culture results. Continue IV Vanco and levaquin for now. Add aztreonam per ID (2) Elevated troponin (3) Seizure disorder (4) Chest pain (5) SOB (shortness of breath) (6) Atrial fibrillation with rapid ventricular response Assessment & Plan: Currently sinus. See cardiology note. (7) ESRD (end stage renal disease) Assessment & Plan: See nephrology note. Hemodialysis today. Status: not improved KARYN STEPHENSON May 09, 2017 14:41
--- NOTE | 2017-05-09 17:16 | Cardiology Progress Note ---
Assessment/Plan Assessment/Plan short afib episodes spont converted to sinus fever as mild min abn trop likely related to tachy and renal insujf no recurrent afib on any of tele strip since admission would consider ziopatch as outpt to evaluate afib burdend to determine if need senior care anticoagulation fever as per dr delacruz to review echo may conisder ischemia evluation by richkatia insole doubler solano as outpt Subjective Cardiovascular: Denies: chest pain, lightheadedness, palpitations Respiratory: Denies: shortness of breath Gastrointestinal/Abdominal: Denies: abdominal pain Genitourinary: Denies: burning Objective Last 24 Hour Vital Signs Date Time Temp Pulse Resp B/P (MAP) Pulse Ox O2 Delivery O2 Flow Rate FiO2 05/09/17 16:05 99.1 75 18 120/55 99 Room Air 05/09/17 16:00 73 05/09/17 12:37 97.9 69 18 115/56 99 Room Air 05/09/17 12:00 69 05/09/17 08:54 98.8 71 18 130/60 98 Room Air 05/09/17 08:16 81 126/59 05/09/17 08:00 78 05/09/17 07:52 81 18 Room Air 21 05/09/17 04:30 98.9 05/09/17 04:10 100.4 79 20 126/59 96 Room Air 05/09/17 04:00 82 05/09/17 00:19 99.7 83 20 135/67 95 Room Air 05/09/17 00:00 73 05/08/17 23:30 83 135/67 05/08/17 20:02 67 16 Room Air 05/08/17 20:00 67 General Appearance: alert Neck: supple Cardiovascular: normal rate, regular rhythm Respiratory/Chest: lungs clear Abdomen: normal bowel sounds, non tender, soft Extremities: no swelling Intake and Output 05/09/17 05/10/17 19:00 07:00 Intake Total 777.416 ml Balance 777.416 ml Intake Oral 360 ml IV Total 417.416 ml # Voids 1 Laboratory Tests Test 05/09/17 16:00 White Blood Count Pending Red Blood Count Pending Hemoglobin Pending Hematocrit Pending Mean Corpuscular Volume Pending Mean Corpuscular Hemoglobin Pending Mean Corpuscular Hemoglobin Concent Pending Red Cell Distribution Width Pending Platelet Count Pending Mean Platelet Volume Pending Neutrophils (%) (Auto) Pending Lymphocytes (%) (Auto) Pending Monocytes (%) (Auto) Pending Eosinophils (%) (Auto) Pending Basophils (%) (Auto) Pending Sodium Level Pending Potassium Level Pending Chloride Level Pending Carbon Dioxide Level Pending Blood Urea Nitrogen Pending Creatinine Pending Estimat Glomerular Filtration Rate Pending Glucose Level Pending Calcium Level Pending Troponin I Pending Microbiology Date/Time Source Procedure Growth Status 05/07/17 02:00 Nasal Nares MRSA Culture - Final NO METHICILLIN RESISTANT STAPH AUREUS... Complete 05/07/17 02:00 Rectum VRE Culture - Final Enterococcus Faecalis - Vre Complete SATHYA MCKEON May 09, 2017 17:16
[2017-05-09 17:27] LABS: ANION GAP 9 mmol/L (5-15); CALCIUM 8.2 MG/DL (8.5-10.1); CARBON DIOXIDE 29 MMOL/L (21-32); CHLORIDE 97 MMOL/L (98-107); CREATININE 3.3 MG/DL (0.55-1.30); POTASSIUM 3.6 MMOL/L (3.5-5.1); SODIUM 135 MMOL/L (136-145)
--- NOTE | 2017-05-09 17:45 | Cardiology Report ---
APPROVED REPORT EXAM: Two-dimensional and M-mode echocardiogram with Doppler and color Doppler. INDICATION Left ventricular function M-Mode DIMENSIONS IVSd0.9 (0.7-1.1cm)Left Atrium (MM)4.4 (1.6-4.0cm) LVDd4.6 (3.5-5.6cm)Aortic Root2.2 (2.0-3.7cm) PWd0.9 (0.7-1.1cm)Aortic Cusp Exc.1.5 (1.5-2.0cm) LVDs2.9 (2.5-4.0cm) PWs1.1 cm Normal left ventricular chamber size, systolic function and wall motion. Left ventricular ejection fraction estimated to be 60-65%. Mild left ventricular hypertrophy. Mod posterior pericardial effusion no hemodynamic consequnce . Right cardiac chamber sizes are within normal limits. Mild left atrial enlargement by 2D. Focal aortic valve sclerosis with decresed cusp excursion. Thickened mitral valve leaflets with normal excursion. Mild mitral annulus and aortic root calcification. Pulmonic valve not well visualized. Normal tricuspid valve structure. IVC is normal in size and collapsible with respiration. A color flow and spectral Doppler study was performed and revealed: Mild aortic regurgitation. with pg 25 , mg 10 mmhg Moderate to Severe mitral regurgitation. Mitral diastolic velocities suggest normal left ventricular relaxation Trace tricuspid regurgitation. Tricuspid systolic velocities suggests peak right ventricular systolic pressure of 22mmHg
[2017-05-09 18:17] LABS: BASOPHILS % (AUTO) 1.3 % (0.0-2.0); EOSINOPHILS % (AUTO) 3.7 % (0.0-3.0); LYMPHOCYTES % (AUTO) 16.9 % (20.0-45.0); MEAN CORPUSCULAR HEMOGLOBIN 33.6 PG (27.0-31.0); MEAN CORPUSCULAR HGB CONC 33.6 G/DL (32.0-36.0); MEAN CORPUSCULAR VOLUME 100 FL (80-99); MEAN PLATELET VOLUME 6.4 FL (6.5-10.1); MONOCYTES % (AUTO) 8.1 % (1.0-10.0); NEUTROPHILS % (AUTO) 70.1 % (45.0-75.0); PLATELET COUNT 221 K/UL (150-450); RED BLOOD COUNT 2.78 M/UL (4.20-5.40); RED CELL DISTRIBUTION WIDTH 11.7 % (11.6-14.8); WHITE BLOOD COUNT 7.5 K/UL (4.8-10.8)
--- NOTE | 2017-05-09 18:39 | Cardiology Report ---
APPROVED REPORT EKG Measurement Heart [id number] Sinus bradycardia Otherwise normal ECG
[2017-05-09] MEDS: Aztreonam 0.5gm in D5W 55ml IVPB SCH (21:15)
--- NOTE | 2017-05-09 21:40 | General Progress Note ---
Assessment/Plan Status: stable, progressing Subjective Constitutional: Reports: malaise, weakness Neurologic/Psychiatric: Reports: anxiety, emotional problems Allergies: Coded Allergies: HYDROMORPHONE (Verified Allergy, Unknown, 05/06/17) KETOROLAC (Verified Allergy, Unknown, 05/06/17) PENICILLINS (Verified Allergy, Unknown, 05/06/17) Objective Last 24 Hour Vital Signs Date Time Temp Pulse Resp B/P (MAP) Pulse Ox O2 Delivery O2 Flow Rate FiO2 05/09/17 19:49 98.4 75 20 126/60 96 Room Air 05/09/17 16:05 99.1 75 18 120/55 99 Room Air 05/09/17 16:00 73 05/09/17 12:37 97.9 69 18 115/56 99 Room Air 05/09/17 12:00 69 05/09/17 08:54 98.8 71 18 130/60 98 Room Air 05/09/17 08:16 81 126/59 05/09/17 08:00 78 05/09/17 07:52 81 18 Room Air 21 05/09/17 04:30 98.9 05/09/17 04:10 100.4 79 20 126/59 96 Room Air 05/09/17 04:00 82 05/09/17 00:19 99.7 83 20 135/67 95 Room Air 05/09/17 00:00 73 05/08/17 23:30 83 135/67 Intake and Output 05/09/17 05/10/17 19:00 07:00 Intake Total 957.416 ml Balance 957.416 ml Intake Oral 540 ml IV Total 417.416 ml # Voids 1 Laboratory Tests 05/09/17 16:00: Sodium Level 135L, Potassium Level 3.6, Chloride Level 97L, Carbon Dioxide Level 29, Anion Gap 9, Blood Urea Nitrogen 31H, Creatinine 3.3H, Estimat Glomerular Filtration Rate , Glucose Level 115H, Calcium Level 8.2L, Troponin I 0.506H 05/09/17 18:05: White Blood Count 7.5, Red Blood Count 2.78L, Hemoglobin 9.3L, Hematocrit 27.8L , Mean Corpuscular Volume 100H, Mean Corpuscular Hemoglobin 33.6H, Mean Corpuscular Hemoglobin Concent 33.6, Red Cell Distribution Width 11.7, Platelet Count 221, Mean Platelet Volume 6.4L, Neutrophils (%) (Auto) 70.1, Lymphocytes ( %) (Auto) 16.9L, Monocytes (%) (Auto) 8.1, Eosinophils (%) (Auto) 3.7H, Basophils (%) (Auto) 1.3 Height (Feet): 5 Height (Inches): 2.00 Weight (Pounds): 100 General Appearance: no apparent distress, alert Neurologic: alert, oriented x 3, responsive, depressed affect Alvarez Russ M.D. May 09, 2017 21:40
[2017-05-10 04:00] VITALS: BP 143/75
[2017-05-10 07:54] VITALS: BP 134/62
--- NOTE | 2017-05-10 08:45 | Consultation ---
DATE OF CONSULTATION: 05/08/2017 CARDIOLOGY CONSULTATION CONSULTING PHYSICIAN: Raghu Whitehead M.D. REFERRING PHYSICIANS: 1. Guillermo Colon M.D. 2. Mesfin Hurt M.D. ATTENDING PHYSICIAN: Mesfin Hurt M.D. REASON FOR REFERRAL: Atrial fibrillation. HISTORY OF PRESENT ILLNESS: This is an 87-year-old female, who has history of significant medical problems. The patient has had a hospitalization at [facility] recently, presented to the hospital, apparently during dialysis started getting fevers and chills, and started having some palpitations, and paramedics were subsequently summoned at the request of her daughter. She was brought to the emergency room and was noted to be in atrial fibrillation with rapid ventricular response. Her daughter told the emergency room physician that she has had atrial fibrillation many years ago, but she has never gotten any medications and she is not on any anticoagulation. She is followed by Dr. Kofi rivera at [facility], who saw her not too long ago, according to the [facility] records that I had a chance to review. The patient denies having any chest pain. She did have some shortness of breath when the episodes are happening yesterday, but she is not short of breath at this time. She is not having any palpitation at this time. There is no PND. She has limited mobility with the assistance of her daughter and she does not have any chest pain or shortness of breath with the limited amount of activity she is capable of doing. PAST MEDICAL HISTORY: According to [facility] records, history of anemia, likely multifactorial including chronic coronary artery disease, mild aortic stenosis, right eye blindness, epilepsy, end-stage renal disease, on hemodialysis; history of colitis; history of hip fracture bilaterally; history of hyperlipidemia; hypertension; idiopathic pericardial effusion; mild diastolic relaxation abnormality; mold exposure; osteopenia; secondary hyperparathyroidism; and shoulder fracture. She has had AV graft placement. She has had history of axillary exploration, cephalic vein exploration, hemorrhoidectomy, hip surgery, history of temporal artery biopsy, and abdominal hysterectomy. SOCIAL HISTORY: She does not smoke or drink. She never smoked. She never used smokeless tobacco. She never used alcohol or drugs. ALLERGIES: She is allergic to Depakote, Dilaudid, Toradol, amantadine, ciprofloxacin, Dilantin, Levaquin, [place], valsartan, hydrochlorothiazide, and penicillin according to some of the records from [facility], which I have reviewed. REVIEW OF SYSTEMS: GASTROINTESTINAL: Negative except for some constipation. No bloody or black stool. GENITOURINARY: Negative. PULMONARY: Negative. CONSTITUTIONAL: She has had some fevers, but no chills. NEUROLOGICAL: Negative. PHYSICAL EXAMINATION: GENERAL: Physical examination shows her to be elderly female, in no respiratory distress. NECK: Supple. No jugular venous distention. There was a carotid bruit. LUNGS: Appear to have some crackles on the left base. The right appears to be relatively clear. CARDIAC: Regular rhythm. Systolic ejection murmur. No RV lift, heaves, or thrills noted. ABDOMEN: Soft and nontender. Positive bowel sounds. EXTREMITIES: There is no edema, clubbing, or cyanosis. NEUROLOGICAL: She is awake, alert, responsive, in no apparent respiratory distress. LABORATORY AND DIAGNOSTIC DATA: White count of 9.4, hemoglobin 9.8, and platelet count of 261. Sodium is 135, potassium 2.8, chloride 97, bicarbonate 27, BUN of 12, creatinine of 2.0, glucose of 115, and calcium is 8.3. Troponin initially 0.056 and subsequently 0.812. ProBNP of 9030. TSH is 3.093. INR is 0.9 and PTT of 45. She did have a chest x-ray that showed no acute cardiopulmonary process, left basilar atelectasis or scarring being noted. She did have an EKG that showed what appears to be atrial fibrillation, difficult to see atrial activity on this EKG, ventricular response up to 133, and irregularly irregular. Her telemetry data shows that she has basically been in sinus since she was placed on telemetry at the time of her admission to the floor and she has continued to be in sinus without any recurrence of atrial fibrillation. ASSESSMENT AND PLAN: 1. Episode of atrial fibrillation with rapid ventricular response, spontaneously converted to sinus rhythm. 2. Fevers. 3. History of end-stage renal disease, on hemodialysis. 4. Chronic kidney disease, on hemodialysis. 5. History of mild aortic stenosis. 6. History of epilepsy. 7. History of hyperlipidemia. 8. History of hypertension. 9. History of idiopathic pericardial effusion. 10. History of mild diastolic dysfunction. PLAN: Dr. Colon and Dr. Blu, this patient was seen in cardiac consultation. The patient's second cardiac enzyme is mildly elevated. However, in light of the fact that she has end-stage renal disease and is on hemodialysis, at that level may not be absolutely diagnostic. Further evaluation with repeat cardiac enzymes as well as echocardiogram is in order. She will need to be monitored for recurrence of atrial fibrillation. It is possible that she had tachycardia-induced myonecrosis and supply-demand mismatch. She will have to be observed for atrial fibrillation recurrence with her dialysis and shunts and catheters that she may have had on need in the future. Anticoagulation will not be without risk, and therefore, I think she should be monitored and evaluated for the burden of atrial fibrillation and then the decision regarding anticoagulation to be taken in light of the fact that the episode was very short-lived. Of course, if she has persistent or recurrent atrial fibrillation, then anticoagulation will be necessary. She will need to work up for the source of her fevers and I will leave that up to you. Raghu Whitehead M.D. DR: WESTON JOB#: [id number] CC: JENY
[2017-05-10] MEDS: Aztreonam 0.5gm in D5W 55ml IVPB SCH (09:21)
[2017-05-10] MEDS: Vitamin D 1000 IU Tab ORAL SCH (09:25)
[2017-05-10] MEDS: Nephrovite tab (Rena-Vite) ORAL SCH (09:26)
[2017-05-10] MEDS: Heparin 5000 units/ml inj SUBQ SCH ×2 (09:28→23:57)
[2017-05-10] MEDS: Dyna-Hex 2% Top Sol 2oz TOPIC SCH (09:28)
--- NOTE | 2017-05-10 09:56 | Infectious Diseases Prog Note ---
Assessment/Plan Assessment/Plan Abx: IV Vancomycin 05/08- Levaquin 05/08- Aztreonam 05/09- Assesment: FEver- r/o bacteremia -u.a neg, ucx 70-80k GNB >assymptomatic bacteriuria given neg u/a and no sx's and prob not the cause of fever -Bcx NTD, Bcx-(joan cath) pending -CXR no acute process -no leukocytosis Afib with RVR SOB/lightheadness- 2ry to above Troponinemia ?Recent infectious process for which patient as getting outpt Abx (?nature of infection, ?abx type and duration) HTN Afib ESRD on HD TTS chronic dCHF ?PNC allergy- patient refers she was told years ago by an police officer crime prevention she had PNC allergy but she says they were not really sure if PNC was the drug; reaction seem to be dizziness. seizure disorder, s/p L femur ORIF, b/l leg fx s/p ORIF, s/p NYA for fibroid tumor, HLD, anemia, R eye blindness, Osteopenia, 2ry hyperparathyroidism, Plan: -Continue IV Vanco #3, Levaquin #3 and Aztreonam #2 pending cx; still suspect bacteremia, awaiting peripheral and joan cath cultures -obtain records from ID physician at [facility] to elucidate recent infectious disease process and abx regimen -f/u cx -Monitor CBC/bmp, temperatures -aspiration precautions Thank you for this consultation. Will continue to follow along with you. Discussed with RN. Subjective Allergies: Coded Allergies: HYDROMORPHONE (Verified Allergy, Unknown, 05/06/17) KETOROLAC (Verified Allergy, Unknown, 05/06/17) PENICILLINS (Verified Allergy, Unknown, 05/06/17) Subjective afebriel in 24hrs Bcx NTD, awaiting Bcx from joan cath no leukocytosis ucx growign GNB Objective Vital Signs Last 24 Hour Vital Signs Date Time Temp Pulse Resp B/P (MAP) Pulse Ox O2 Delivery O2 Flow Rate FiO2 05/10/17 09:25 72 134/62 05/10/17 09:20 72 134/62 05/10/17 07:54 97.7 72 18 134/62 97 Room Air 05/10/17 07:53 70 16 Room Air 21 05/10/17 04:00 97.0 69 20 143/75 97 Room Air 05/10/17 04:00 69 05/10/17 00:00 76 05/09/17 23:47 98.1 75 20 125/63 94 Room Air 05/09/17 20:00 74 05/09/17 19:49 98.4 75 20 126/60 96 Room Air 05/09/17 19:10 69 18 Room Air 21 05/09/17 16:05 99.1 75 18 120/55 99 Room Air 05/09/17 16:00 73 05/09/17 12:37 97.9 69 18 115/56 99 Room Air 05/09/17 12:00 69 Height (Feet): 5 Height (Inches): 2.00 Weight (Pounds): 118 Objective General Appearance: WD/WN, no apparent distress, alert EENT: PERRL/EOMI, normal ENT inspection Neck: non-tender, normal alignment, supple, normal inspection Cardiovascular: normal peripheral pulses, normal rate, regular rhythm, no gallop/murmur, no JVD Respiratory/Chest: chest wall non-tender, lungs clear, normal breath sounds, no respiratory distress, no accessory muscle use Abdomen: normal bowel sounds, non tender, soft, no organomegaly, no mass 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, no motor/sensory deficits Skin: normal pigmentation, warm/dry, no rash Microbiology Date/Time Source Procedure Growth Status 05/08/17 10:55 Blood Blood Culture - Preliminary NO GROWTH AFTER 24 HOURS Resulted 05/08/17 11:25 Straight Cath Urine Culture - Preliminary Gram Negative Bacillus 1 Resulted Laboratory Tests Test 05/09/17 16:00 05/09/17 18:05 Sodium Level 135 MMOL/L (136-145) L Potassium Level 3.6 MMOL/L (3.5-5.1) Chloride Level 97 MMOL/L (98-107) L Carbon Dioxide Level 29 MMOL/L (21-32) Anion Gap 9 mmol/L (5-15) Blood Urea Nitrogen 31 mg/dL (7-18) H Creatinine 3.3 MG/DL (0.55-1.30) H Estimat Glomerular Filtration Rate mL/min (>60) Glucose Level 115 MG/DL (74-106) H Calcium Level 8.2 MG/DL (8.5-10.1) L Troponin I 0.506 ng/mL (0.000-0.056) White Blood Count 7.5 K/UL (4.8-10.8) Red Blood Count 2.78 M/UL (4.20-5.40) L Hemoglobin 9.3 G/DL (12.0-16.0) L Hematocrit 27.8 % (37.0-47.0) L Mean Corpuscular Volume 100 FL (80-99) H Mean Corpuscular Hemoglobin 33.6 PG (27.0-31.0) H Mean Corpuscular Hemoglobin Concent 33.6 G/DL (32.0-36.0) Red Cell Distribution Width 11.7 % (11.6-14.8) Platelet Count 221 K/UL (150-450) Mean Platelet Volume 6.4 FL (6.5-10.1) L Neutrophils (%) (Auto) 70.1 % (45.0-75.0) Lymphocytes (%) (Auto) 16.9 % (20.0-45.0) L Monocytes (%) (Auto) 8.1 % (1.0-10.0) Eosinophils (%) (Auto) 3.7 % (0.0-3.0) H Basophils (%) (Auto) 1.3 % (0.0-2.0) Current Medications Medications (Trade) Dose Ordered Sig/Barbara Route PRN Reason Start Time Stop Time Status Last Admin Dose Admin Acetaminophen (Tylenol) 650 mg Q4H PRN ORAL Fever>100.5 05/07/17 08:00 06/06/17 07:59 05/08/17 00:36 Acetaminophen/ Hydrocodone Bitart (Shirley 5/325) 1 tab Q6H PRN ORAL Severe Pain (Pain Scale 7-10) 05/07/17 08:00 05/14/17 07:59 Albuterol/ Ipratropium (Albuterol/ Ipratropium) 3 ml Q4H PRN HHN Shortness of Breath 05/07/17 08:00 05/12/17 07:59 Amlodipine Besylate (Norvasc) 10 mg DAILY ORAL 05/07/17 09:00 06/06/17 08:59 05/10/17 09:25 Aztreonam 0.5 gm/ Dextrose 55 ml @ 110 mls/hr Q12HR IVPB 05/09/17 21:00 05/16/17 20:59 05/10/17 09:21 Chlorhexidine Gluconate (Bella-Hex 2%) 1 applic DAILY TOPIC 05/07/17 09:00 06/06/17 08:59 05/10/17 09:28 Dextrose (Dextrose 50%) STAT PRN IV Hypoglycemia 05/07/17 08:00 06/06/17 07:59 Escitalopram Oxalate (Lexapro) 10 mg DAILY ORAL 05/10/17 09:00 06/09/17 08:59 05/10/17 09:25 Heparin Sodium (Porcine) (Heparin 5000 units/ml) 5,000 units EVERY 12 HOURS SUBQ 05/07/17 09:00 06/06/17 08:59 05/10/17 09:28 Hydralazine HCl (Apresoline) 25 mg EVERY 8 HOURS PRN ORAL For SBP > 150 05/07/17 08:00 06/06/17 07:59 Lamotrigine (LaMICtal) 200 mg BID ORAL 05/10/17 09:00 06/09/17 08:59 05/10/17 09:27 Levofloxacin (Levaquin) 250 mg Q48H ORAL 05/10/17 18:00 05/17/17 17:59 Metoprolol Tartrate (Lopressor) 5 mg Q1H PRN IVP spb more than 120 05/07/17 08:00 06/06/17 07:59 Ondansetron HCl (Zofran) 4 mg Q6H PRN IVP Nausea & Vomiting 05/07/17 08:00 06/06/17 07:59 Polyethylene Glycol (Miralax) 17 gm DAILYPRN PRN ORAL Constipation 05/07/17 08:00 06/06/17 07:59 Temazepam (Restoril) 15 mg HSPRN PRN ORAL Insomnia 05/07/17 21:00 05/14/17 20:59 Vancomycin HCl (Vanco rx to dose) 1 ea DAILY PRN MISC Per rx protocol 05/09/17 09:30 06/08/17 09:29 Vitamin B Complex/ Vit C/Folic Acid (Nephrovite) 1 tab 3XW ORAL 05/07/17 09:00 06/06/17 08:59 05/10/17 09:26 Vitamin B Complex/ Vit C/Folic Acid (Nephrovite) 1 tab QWEEK ORAL 05/09/17 09:00 06/08/17 08:59 05/09/17 08:16 Vitamin D (Vitamin D) 2,000 intlu DAILY ORAL 05/07/17 09:00 06/06/17 08:59 05/10/17 09:25 Krystal Daniel M.D. May 10, 2017 09:56
[2017-05-10 10:05] LABS: BASOPHILS % (AUTO) 1.2 % (0.0-2.0); EOSINOPHILS % (AUTO) 4.8 % (0.0-3.0); MEAN CORPUSCULAR HEMOGLOBIN 33.7 PG (27.0-31.0); MEAN CORPUSCULAR VOLUME 99 FL (80-99); MEAN PLATELET VOLUME 6.6 FL (6.5-10.1); MONOCYTES % (AUTO) 9.3 % (1.0-10.0); NEUTROPHILS % (AUTO) 73.8 % (45.0-75.0); PLATELET COUNT 231 K/UL (150-450); RED BLOOD COUNT 2.85 M/UL (4.20-5.40); RED CELL DISTRIBUTION WIDTH 11.9 % (11.6-14.8); WHITE BLOOD COUNT 6.1 K/UL (4.8-10.8)
--- NOTE | 2017-05-10 10:17 | Internal Med Progress Note ---
Subjective Date of Service: May 10, 2017 Physician Name Karyn Stephenson Attending Physician Mesfin Hurt MD Current Medications Medications (Trade) Dose Ordered Sig/Barbara Route PRN Reason Start Time Stop Time Status Last Admin Dose Admin Acetaminophen (Tylenol) 650 mg Q4H PRN ORAL Fever>100.5 05/07/17 08:00 06/06/17 07:59 05/08/17 00:36 Acetaminophen/ Hydrocodone Bitart ([place] 5/325) 1 tab Q6H PRN ORAL Severe Pain (Pain Scale 7-10) 05/07/17 08:00 05/14/17 07:59 Albuterol/ Ipratropium (Albuterol/ Ipratropium) 3 ml Q4H PRN HHN Shortness of Breath 05/07/17 08:00 05/12/17 07:59 Amlodipine Besylate (Norvasc) 10 mg DAILY ORAL 05/07/17 09:00 06/06/17 08:59 05/10/17 09:25 Aztreonam 0.5 gm/ Dextrose 55 ml @ 110 mls/hr Q12HR IVPB 05/09/17 21:00 05/16/17 20:59 05/10/17 09:21 Chlorhexidine Gluconate (Bella-Hex 2%) 1 applic DAILY TOPIC 05/07/17 09:00 06/06/17 08:59 05/10/17 09:28 Dextrose (Dextrose 50%) STAT PRN IV Hypoglycemia 05/07/17 08:00 06/06/17 07:59 Escitalopram Oxalate (Lexapro) 10 mg DAILY ORAL 05/10/17 09:00 06/09/17 08:59 05/10/17 09:25 Heparin Sodium (Porcine) (Heparin 5000 units/ml) 5,000 units EVERY 12 HOURS SUBQ 05/07/17 09:00 06/06/17 08:59 05/10/17 09:28 Hydralazine HCl (Apresoline) 25 mg EVERY 8 HOURS PRN ORAL For SBP > 150 05/07/17 08:00 06/06/17 07:59 Lamotrigine (LaMICtal) 200 mg BID ORAL 05/10/17 09:00 06/09/17 08:59 05/10/17 09:27 Levofloxacin (Levaquin) 250 mg Q48H ORAL 05/10/17 18:00 05/17/17 17:59 Metoprolol Tartrate (Lopressor) 5 mg Q1H PRN IVP spb more than 120 05/07/17 08:00 06/06/17 07:59 Ondansetron HCl (Zofran) 4 mg Q6H PRN IVP Nausea & Vomiting 05/07/17 08:00 06/06/17 07:59 Polyethylene Glycol (Miralax) 17 gm DAILYPRN PRN ORAL Constipation 05/07/17 08:00 06/06/17 07:59 Temazepam (Restoril) 15 mg HSPRN PRN ORAL Insomnia 05/07/17 21:00 05/14/17 20:59 Vancomycin HCl (Vanco rx to dose) 1 ea DAILY PRN MISC Per rx protocol 05/09/17 09:30 06/08/17 09:29 Vitamin B Complex/ Vit C/Folic Acid (Nephrovite) 1 tab 3XW ORAL 05/07/17 09:00 06/06/17 08:59 05/10/17 09:26 Vitamin B Complex/ Vit C/Folic Acid (Nephrovite) 1 tab QWEEK ORAL 05/09/17 09:00 06/08/17 08:59 05/09/17 08:16 Vitamin D (Vitamin D) 2,000 intlu DAILY ORAL 05/07/17 09:00 06/06/17 08:59 05/10/17 09:25 Allergies: Coded Allergies: HYDROMORPHONE (Verified Allergy, Unknown, 05/06/17) KETOROLAC (Verified Allergy, Unknown, 05/06/17) PENICILLINS (Verified Allergy, Unknown, 05/06/17) ROS Limited/Unobtainable: No Constitutional: Reports: fever HEENT: Reports: no symptoms Cardiovascular: Reports: chest pain Respiratory: Reports: shortness of breath Gastrointestinal/Abdominal: Reports: no symptoms Genitourinary: Reports: no symptoms Neurologic/Psychiatric: Reports: no symptoms Subjective 87 YO F admitted with chest pain. Now UTI with fever. Cover for Int [facility] - Dr Hurt. Objective Last Vital Signs Date Time Temp Pulse Resp B/P (MAP) Pulse Ox O2 Delivery O2 Flow Rate FiO2 05/10/17 09:25 72 134/62 05/10/17 07:54 97.7 18 97 Room Air 05/10/17 07:53 21 05/08/17 00:21 95.0 Laboratory Tests Test 05/09/17 16:00 05/09/17 18:05 05/10/17 09:40 Sodium Level 135 MMOL/L (136-145) L Pending Potassium Level 3.6 MMOL/L (3.5-5.1) Pending Chloride Level 97 MMOL/L (98-107) L Pending Carbon Dioxide Level 29 MMOL/L (21-32) Pending Anion Gap 9 mmol/L (5-15) Blood Urea Nitrogen 31 mg/dL (7-18) H Pending Creatinine 3.3 MG/DL (0.55-1.30) H Pending Estimat Glomerular Filtration Rate mL/min (>60) Pending Glucose Level 115 MG/DL (74-106) H Pending Calcium Level 8.2 MG/DL (8.5-10.1) L Pending Troponin I 0.506 ng/mL (0.000-0.056) White Blood Count 7.5 K/UL (4.8-10.8) Pending Red Blood Count 2.78 M/UL (4.20-5.40) L Pending Hemoglobin 9.3 G/DL (12.0-16.0) L Pending Hematocrit 27.8 % (37.0-47.0) L Pending Mean Corpuscular Volume 100 FL (80-99) H Pending Mean Corpuscular Hemoglobin 33.6 PG (27.0-31.0) H Pending Mean Corpuscular Hemoglobin Concent 33.6 G/DL (32.0-36.0) Pending Red Cell Distribution Width 11.7 % (11.6-14.8) Pending Platelet Count 221 K/UL (150-450) Pending Mean Platelet Volume 6.4 FL (6.5-10.1) L Pending Neutrophils (%) (Auto) 70.1 % (45.0-75.0) Pending Lymphocytes (%) (Auto) 16.9 % (20.0-45.0) L Pending Monocytes (%) (Auto) 8.1 % (1.0-10.0) Pending Eosinophils (%) (Auto) 3.7 % (0.0-3.0) H Pending Basophils (%) (Auto) 1.3 % (0.0-2.0) Pending Erythrocyte Sedimentation Rate Pending Phosphorus Level Pending Magnesium Level Pending Total Bilirubin Pending Aspartate Amino Transf (AST/SGOT) Pending Alanine Aminotransferase (ALT/SGPT) Pending Alkaline Phosphatase Pending C-Reactive Protein, Quantitative Pending Pro-B-Type Natriuretic Peptide Pending Total Protein Pending Albumin Pending Globulin Pending Microbiology Date/Time Source Procedure Growth Status 05/08/17 10:55 Blood Blood Culture - Preliminary NO GROWTH AFTER 24 HOURS Resulted 05/08/17 11:25 Straight Cath Urine Culture - Preliminary Gram Negative Bacillus 1 Resulted Intake and Output 05/10/17 05/11/17 19:00 07:00 Intake Total 200 ml Balance 200 ml Intake Oral 200 ml Objective General Appearance: WD/WN, no apparent distress, alert EENT: PERRL/EOMI, normal ENT inspection Neck: non-tender, normal alignment, supple, normal inspection Cardiovascular: normal peripheral pulses, normal rate, regular rhythm, no gallop/murmur, no JVD Respiratory/Chest: chest wall non-tender, lungs clear, normal breath sounds, no respiratory distress, no accessory muscle use Abdomen: normal bowel sounds, non tender, soft, no organomegaly, no mass Neurologic: sexual health physician II-XII grossly normal, no motor/sensory deficits Skin: normal pigmentation, warm/dry Assessment/Plan Problem List: (1) Fever Assessment & Plan: Await culture results. Continue IV Vanco and levaquin for now. Add aztreonam per ID (2) Elevated troponin (3) Seizure disorder (4) Chest pain Assessment & Plan: See cardiology note (5) SOB (shortness of breath) (6) Atrial fibrillation with rapid ventricular response Assessment & Plan: Currently sinus. See cardiology note. (7) ESRD (end stage renal disease) Assessment & Plan: See nephrology note. Hemodialysis today 05/10/17 (8) UTI (urinary tract infection) Assessment & Plan: Gram neg nate. Await ID and sensitivity. Cont levaquin, aztreonam and vanco per ID for now. Status: unchanged KARYN STEPHENSON May 10, 2017 10:17
[2017-05-10 10:27] LABS: ALANINE AMINOTRANSFERASE 11 U/L (12-78); ALBUMIN/GLOBULIN RATIO 0.6 (1.0-2.7); ANION GAP 11 mmol/L (5-15); ASPARTATE AMINO TRANSFERASE 15 U/L (15-37); CARBON DIOXIDE 28 MMOL/L (21-32); CHLORIDE 97 MMOL/L (98-107); CREATININE 3.9 MG/DL (0.55-1.30); CRP QUANT 2.8 mg/dL (0.00-0.90); MAGNESIUM 1.6 MG/DL (1.8-2.4); POTASSIUM 3.2 MMOL/L (3.5-5.1); SODIUM 135 MMOL/L (136-145); TOTAL PROTEIN 6.2 G/DL (6.4-8.2)
[2017-05-10 11:19] LABS: ERYTHROCYTE SEDIMENTATION RATE 99 MM/HR (0-42)
[2017-05-10 11:37] VITALS: BP 133/63
--- NOTE | 2017-05-10 12:01 | Pulmonology Progress Note ---
Assessment/Plan Problems: (1) Fever (2) Atrial fibrillation with rapid ventricular response (3) ESRD (end stage renal disease) (4) Hypokalemia (5) NSTEMI (non-ST elevated myocardial infarction) Assessment/Plan check troponin heart rate controlled, sinus pt insists on eating regular diet. HD by nephrology GNR in urine, ID pending Subjective ROS Limited/Unobtainable: No Constitutional: Reports: no symptoms HEENT: Repors: no symptoms Respiratory: Reports: no symptoms Allergies: Coded Allergies: HYDROMORPHONE (Verified Allergy, Unknown, 05/06/17) KETOROLAC (Verified Allergy, Unknown, 05/06/17) PENICILLINS (Verified Allergy, Unknown, 05/06/17) Objective Last 24 Hour Vital Signs Date Time Temp Pulse Resp B/P (MAP) Pulse Ox O2 Delivery O2 Flow Rate FiO2 05/10/17 11:37 97.8 77 18 133/63 96 Room Air 05/10/17 09:25 72 134/62 05/10/17 09:20 72 134/62 05/10/17 07:54 97.7 72 18 134/62 97 Room Air 05/10/17 07:53 70 16 Room Air 21 05/10/17 04:00 97.0 69 20 143/75 97 Room Air 05/10/17 04:00 69 05/10/17 00:00 76 05/09/17 23:47 98.1 75 20 125/63 94 Room Air 05/09/17 20:00 74 05/09/17 19:49 98.4 75 20 126/60 96 Room Air 05/09/17 19:10 69 18 Room Air 21 05/09/17 16:05 99.1 75 18 120/55 99 Room Air 05/09/17 16:00 73 05/09/17 12:37 97.9 69 18 115/56 99 Room Air Intake and Output 05/10/17 05/11/17 19:00 07:00 Intake Total 200 ml Balance 200 ml Intake Oral 200 ml General Appearance: WD/WN HEENT: normocephalic, atraumatic Respiratory/Chest: chest wall non-tender, lungs clear Breasts: no masses Cardiovascular: normal rate, regular rhythm Abdomen: normal bowel sounds, soft, non tender Genitourinary: normal external genitalia Microbiology Date/Time Source Procedure Growth Status 05/08/17 10:55 Blood Blood Culture - Preliminary NO GROWTH AFTER 24 HOURS Resulted 05/08/17 11:25 Straight Cath Urine Culture - Preliminary Gram Negative Bacillus 1 Resulted Laboratory Tests 05/09/17 16:00: Sodium Level 135L, Potassium Level 3.6, Chloride Level 97L, Carbon Dioxide Level 29, Anion Gap 9, Blood Urea Nitrogen 31H, Creatinine 3.3H, Estimat Glomerular Filtration Rate , Glucose Level 115H, Calcium Level 8.2L, Troponin I 0.506H 05/09/17 18:05: White Blood Count 7.5, Red Blood Count 2.78L, Hemoglobin 9.3L, Hematocrit 27.8L , Mean Corpuscular Volume 100H, Mean Corpuscular Hemoglobin 33.6H, Mean Corpuscular Hemoglobin Concent 33.6, Red Cell Distribution Width 11.7, Platelet Count 221, Mean Platelet Volume 6.4L, Neutrophils (%) (Auto) 70.1, Lymphocytes ( %) (Auto) 16.9L, Monocytes (%) (Auto) 8.1, Eosinophils (%) (Auto) 3.7H, Basophils (%) (Auto) 1.3 05/10/17 09:40: Sodium Level 135L, Potassium Level 3.2L, Chloride Level 97L, Carbon Dioxide Level 28, Anion Gap 11, Blood Urea Nitrogen 40H, Creatinine 3.9H, Estimat Glomerular Filtration Rate , Glucose Level 156H, Calcium Level 8.0L, White Blood Count 6.1, Red Blood Count 2.85L, Hemoglobin 9.6L, Hematocrit 28.3L, Mean Corpuscular Volume 99, Mean Corpuscular Hemoglobin 33.7H, Mean Corpuscular Hemoglobin Concent 34.0, Red Cell Distribution Width 11.9, Platelet Count 231, Mean Platelet Volume 6.6, Neutrophils (%) (Auto) 73.8, Lymphocytes (%) (Auto) 11.0L, Monocytes (%) (Auto) 9.3, Eosinophils (%) (Auto) 4.8H, Basophils (%) ( Auto) 1.2, Erythrocyte Sedimentation Rate 99H, Phosphorus Level 2.0L, Magnesium Level 1.6L, Total Bilirubin 0.3, Aspartate Amino Transf (AST/SGOT) 15, Alanine Aminotransferase (ALT/SGPT) 11L, Alkaline Phosphatase 95, C-Reactive Protein, Quantitative 2.8H, Pro-B-Type Natriuretic Peptide 83344A, Total Protein 6.2L, Albumin 2.3L, Globulin 3.9, Albumin/Globulin Ratio 0.6L Current Medications Medications (Trade) Dose Ordered Sig/Barbara Route PRN Reason Start Time Stop Time Status Last Admin Dose Admin Acetaminophen (Tylenol) 650 mg Q4H PRN ORAL Fever>100.5 05/07/17 08:00 06/06/17 07:59 05/08/17 00:36 Acetaminophen/ Hydrocodone Bitart ([place] 5/325) 1 tab Q6H PRN ORAL Severe Pain (Pain Scale 7-10) 05/07/17 08:00 05/14/17 07:59 Albuterol/ Ipratropium (Albuterol/ Ipratropium) 3 ml Q4H PRN HHN Shortness of Breath 05/07/17 08:00 05/12/17 07:59 Amlodipine Besylate (Norvasc) 10 mg DAILY ORAL 05/07/17 09:00 06/06/17 08:59 05/10/17 09:25 Aztreonam 0.5 gm/ Dextrose 55 ml @ 110 mls/hr Q12HR IVPB 05/09/17 21:00 05/16/17 20:59 05/10/17 09:21 Chlorhexidine Gluconate (Bella-Hex 2%) 1 applic DAILY TOPIC 05/07/17 09:00 06/06/17 08:59 05/10/17 09:28 Dextrose (Dextrose 50%) STAT PRN IV Hypoglycemia 05/07/17 08:00 06/06/17 07:59 Escitalopram Oxalate (Lexapro) 10 mg DAILY ORAL 05/10/17 09:00 06/09/17 08:59 05/10/17 09:25 Heparin Sodium (Porcine) (Heparin 5000 units/ml) 5,000 units EVERY 12 HOURS SUBQ 05/07/17 09:00 06/06/17 08:59 05/10/17 09:28 Hydralazine HCl (Apresoline) 25 mg EVERY 8 HOURS PRN ORAL For SBP > 150 05/07/17 08:00 06/06/17 07:59 Lamotrigine (LaMICtal) 200 mg BID ORAL 05/10/17 09:00 06/09/17 08:59 05/10/17 09:27 Levofloxacin (Levaquin) 250 mg Q48H ORAL 05/10/17 18:00 05/17/17 17:59 Metoprolol Tartrate (Lopressor) 5 mg Q1H PRN IVP spb more than 120 05/07/17 08:00 06/06/17 07:59 Ondansetron HCl (Zofran) 4 mg Q6H PRN IVP Nausea & Vomiting 05/07/17 08:00 06/06/17 07:59 Polyethylene Glycol (Miralax) 17 gm DAILYPRN PRN ORAL Constipation 05/07/17 08:00 06/06/17 07:59 Temazepam (Restoril) 15 mg HSPRN PRN ORAL Insomnia 05/07/17 21:00 05/14/17 20:59 Vancomycin HCl (Vanco rx to dose) 1 ea DAILY PRN MISC Per rx protocol 05/09/17 09:30 06/08/17 09:29 Vitamin B Complex/ Vit C/Folic Acid (Nephrovite) 1 tab 3XW ORAL 05/07/17 09:00 06/06/17 08:59 05/10/17 09:26 Vitamin B Complex/ Vit C/Folic Acid (Nephrovite) 1 tab QWEEK ORAL 05/09/17 09:00 06/08/17 08:59 05/09/17 08:16 Vitamin D (Vitamin D) 2,000 intlu DAILY ORAL 05/07/17 09:00 06/06/17 08:59 05/10/17 09:25 ALESHA FERRO May 10, 2017 12:01
--- NOTE | 2017-05-10 13:31 | Nephrology Progress Note ---
Assessment/Plan Assessment 1) ESRD on HD 2) Paroxysmal A. Fib 3) Vertigo, probably due to inner ear problem Plan: HD tomorrow Meclizine PRN Subjective Subjective She sis still feelinfg dizzy, not able to get out of bed, it seems more like vertigo, last dialysis on Wednesday Objective Objective Last 24 Hour Vital Signs Date Time Temp Pulse Resp B/P (MAP) Pulse Ox O2 Delivery O2 Flow Rate FiO2 05/10/17 11:37 97.8 77 18 133/63 96 Room Air 05/10/17 09:25 72 134/62 05/10/17 09:20 72 134/62 05/10/17 07:54 97.7 72 18 134/62 97 Room Air 05/10/17 07:53 70 16 Room Air 21 05/10/17 04:00 97.0 69 20 143/75 97 Room Air 05/10/17 04:00 69 05/10/17 00:00 76 05/09/17 23:47 98.1 75 20 125/63 94 Room Air 05/09/17 20:00 74 05/09/17 19:49 98.4 75 20 126/60 96 Room Air 05/09/17 19:10 69 18 Room Air 21 05/09/17 16:05 99.1 75 18 120/55 99 Room Air 05/09/17 16:00 73 Intake and Output 05/10/17 05/11/17 19:00 07:00 Intake Total 320 ml Balance 320 ml Intake Oral 320 ml Laboratory Tests 05/09/17 16:00: Sodium Level 135L, Potassium Level 3.6, Chloride Level 97L, Carbon Dioxide Level 29, Anion Gap 9, Blood Urea Nitrogen 31H, Creatinine 3.3H, Estimat Glomerular Filtration Rate , Glucose Level 115H, Calcium Level 8.2L, Troponin I 0.506H 05/09/17 18:05: White Blood Count 7.5, Red Blood Count 2.78L, Hemoglobin 9.3L, Hematocrit 27.8L , Mean Corpuscular Volume 100H, Mean Corpuscular Hemoglobin 33.6H, Mean Corpuscular Hemoglobin Concent 33.6, Red Cell Distribution Width 11.7, Platelet Count 221, Mean Platelet Volume 6.4L, Neutrophils (%) (Auto) 70.1, Lymphocytes ( %) (Auto) 16.9L, Monocytes (%) (Auto) 8.1, Eosinophils (%) (Auto) 3.7H, Basophils (%) (Auto) 1.3 05/10/17 09:40: Sodium Level 135L, Potassium Level 3.2L, Chloride Level 97L, Carbon Dioxide Level 28, Anion Gap 11, Blood Urea Nitrogen 40H, Creatinine 3.9H, Estimat Glomerular Filtration Rate , Glucose Level 156H, Calcium Level 8.0L, White Blood Count 6.1, Red Blood Count 2.85L, Hemoglobin 9.6L, Hematocrit 28.3L, Mean Corpuscular Volume 99, Mean Corpuscular Hemoglobin 33.7H, Mean Corpuscular Hemoglobin Concent 34.0, Red Cell Distribution Width 11.9, Platelet Count 231, Mean Platelet Volume 6.6, Neutrophils (%) (Auto) 73.8, Lymphocytes (%) (Auto) 11.0L, Monocytes (%) (Auto) 9.3, Eosinophils (%) (Auto) 4.8H, Basophils (%) ( Auto) 1.2, Erythrocyte Sedimentation Rate 99H, Phosphorus Level 2.0L, Magnesium Level 1.6L, Total Bilirubin 0.3, Aspartate Amino Transf (AST/SGOT) 15, Alanine Aminotransferase (ALT/SGPT) 11L, Alkaline Phosphatase 95, C-Reactive Protein, Quantitative 2.8H, Pro-B-Type Natriuretic Peptide [id number], Total Protein 6.2L, Albumin 2.3L, Globulin 3.9, Albumin/Globulin Ratio 0.6L 05/10/17 11:40: Vancomycin Level Trough 14.7H Height (Feet): 5 Height (Inches): 2.00 Weight (Pounds): 118 General Appearance: no apparent distress, alert EENT: PERRL/EOMI Neck: non-tender Cardiovascular: normal rate, regular rhythm Respiratory/Chest: lungs clear Abdomen: normal bowel sounds, non tender Extremities: normal range of motion, non-tender Neurologic: alert, other - vertigo, horizontal nystagmus, when moving head MADELAINE HUGHES May 10, 2017 13:31
[2017-05-10] MEDS ORDERED: Vancomycin 750mg/NS 250ml IVPB ONE (15:00)
[2017-05-10 15:35] VITALS: BP 128/63
[2017-05-10] MEDS ORDERED: Levofloxacin 250mg/D5W 50ml IVPB SCH (18:00)
--- NOTE | 2017-05-10 18:07 | Cardiology Progress Note ---
Assessment/Plan Assessment/Plan short afib episodes spont converted to sinus adn no recurrence fever moderate moderate to sever MR min abn trop likely related to tachy and renal insuf no recurrent afib on any of tele strip since admission would consider ziopatch as outpt to evaluate afib burden to determine if need snf anticoagulation fever as per dr delacruz echo noted may consider ischemia Evaluation by primary bulb planter dr khan as outpt Subjective Cardiovascular: Denies: chest pain, palpitations Respiratory: Denies: shortness of breath Gastrointestinal/Abdominal: Denies: abdominal pain Genitourinary: Denies: burning Subjective dizziness Objective Last 24 Hour Vital Signs Date Time Temp Pulse Resp B/P (MAP) Pulse Ox O2 Delivery O2 Flow Rate FiO2 05/10/17 15:35 98.1 68 18 128/63 98 Room Air 05/10/17 12:00 69 05/10/17 11:37 97.8 77 18 133/63 96 Room Air 05/10/17 09:25 72 134/62 05/10/17 09:20 72 134/62 05/10/17 08:00 70 05/10/17 07:54 97.7 72 18 134/62 97 Room Air 05/10/17 07:53 70 16 Room Air 21 05/10/17 04:00 97.0 69 20 143/75 97 Room Air 05/10/17 04:00 69 05/10/17 00:00 76 05/09/17 23:47 98.1 75 20 125/63 94 Room Air 05/09/17 20:00 74 05/09/17 19:49 98.4 75 20 126/60 96 Room Air 05/09/17 19:10 69 18 Room Air 21 General Appearance: no apparent distress, alert Neck: supple Cardiovascular: normal rate Respiratory/Chest: lungs clear, normal breath sounds Abdomen: normal bowel sounds, non tender, soft Extremities: no swelling Intake and Output 05/10/17 05/11/17 19:00 07:00 Intake Total 470 ml Balance 470 ml Intake Oral 470 ml Laboratory Tests Test 05/09/17 18:05 05/10/17 09:40 05/10/17 11:40 White Blood Count 7.5 K/UL (4.8-10.8) 6.1 K/UL (4.8-10.8) Red Blood Count 2.78 M/UL (4.20-5.40) L 2.85 M/UL (4.20-5.40) L Hemoglobin 9.3 G/DL (12.0-16.0) L 9.6 G/DL (12.0-16.0) L Hematocrit 27.8 % (37.0-47.0) L 28.3 % (37.0-47.0) L Mean Corpuscular Volume 100 FL (80-99) H 99 FL (80-99) Mean Corpuscular Hemoglobin 33.6 PG (27.0-31.0) H 33.7 PG (27.0-31.0) H Mean Corpuscular Hemoglobin Concent 33.6 G/DL (32.0-36.0) 34.0 G/DL (32.0-36.0) Red Cell Distribution Width 11.7 % (11.6-14.8) 11.9 % (11.6-14.8) Platelet Count 221 K/UL (150-450) 231 K/UL (150-450) Mean Platelet Volume 6.4 FL (6.5-10.1) L 6.6 FL (6.5-10.1) Neutrophils (%) (Auto) 70.1 % (45.0-75.0) 73.8 % (45.0-75.0) Lymphocytes (%) (Auto) 16.9 % (20.0-45.0) L 11.0 % (20.0-45.0) L Monocytes (%) (Auto) 8.1 % (1.0-10.0) 9.3 % (1.0-10.0) Eosinophils (%) (Auto) 3.7 % (0.0-3.0) H 4.8 % (0.0-3.0) H Basophils (%) (Auto) 1.3 % (0.0-2.0) 1.2 % (0.0-2.0) Erythrocyte Sedimentation Rate 99 MM/HR (0-42) H Sodium Level 135 MMOL/L (136-145) L Potassium Level 3.2 MMOL/L (3.5-5.1) L Chloride Level 97 MMOL/L (98-107) L Carbon Dioxide Level 28 MMOL/L (21-32) Anion Gap 11 mmol/L (5-15) Blood Urea Nitrogen 40 mg/dL (7-18) H Creatinine 3.9 MG/DL (0.55-1.30) H Estimat Glomerular Filtration Rate mL/min (>60) Glucose Level 156 MG/DL (74-106) H Calcium Level 8.0 MG/DL (8.5-10.1) L Phosphorus Level 2.0 MG/DL (2.5-4.9) L Magnesium Level 1.6 MG/DL (1.8-2.4) L Total Bilirubin 0.3 MG/DL (0.2-1.0) Aspartate Amino Transf (AST/SGOT) 15 U/L (15-37) Alanine Aminotransferase (ALT/SGPT) 11 U/L (12-78) L Alkaline Phosphatase 95 U/L (46-116) C-Reactive Protein, Quantitative 2.8 mg/dL (0.00-0.90) H Pro-B-Type Natriuretic Peptide 37650 pg/mL (0-125) H Total Protein 6.2 G/DL (6.4-8.2) L Albumin 2.3 G/DL (3.4-5.0) L Globulin 3.9 g/dL Albumin/Globulin Ratio 0.6 (1.0-2.7) L Vancomycin Level Trough 14.7 ug/mL (5.0-12.0) H Microbiology Date/Time Source Procedure Growth Status 05/08/17 10:55 Blood Blood Culture - Preliminary NO GROWTH AFTER 24 HOURS Resulted 05/08/17 11:25 Straight Cath Urine Culture - Preliminary Gram Negative Bacillus 1 Resulted SATHYA MCKEON May 10, 2017 18:07
[2017-05-10 20:00] VITALS: BP 137/77
--- NOTE | 2017-05-10 22:07 | General Progress Note ---
Assessment/Plan Status: stable, progressing Assessment/Plan Anxiety d/o cont current meds Subjective Neurologic/Psychiatric: Reports: anxiety, emotional problems Allergies: Coded Allergies: HYDROMORPHONE (Verified Allergy, Unknown, 05/06/17) KETOROLAC (Verified Allergy, Unknown, 05/06/17) PENICILLINS (Verified Allergy, Unknown, 05/06/17) Objective Last 24 Hour Vital Signs Date Time Temp Pulse Resp B/P (MAP) Pulse Ox O2 Delivery O2 Flow Rate FiO2 05/10/17 16:00 70 05/10/17 15:35 98.1 68 18 128/63 98 Room Air 05/10/17 12:00 69 05/10/17 11:37 97.8 77 18 133/63 96 Room Air 05/10/17 09:25 72 134/62 05/10/17 09:20 72 134/62 05/10/17 08:00 70 05/10/17 07:54 97.7 72 18 134/62 97 Room Air 05/10/17 07:53 70 16 Room Air 21 05/10/17 04:00 97.0 69 20 143/75 97 Room Air 05/10/17 04:00 69 05/10/17 00:00 76 05/09/17 23:47 98.1 75 20 125/63 94 Room Air Intake and Output 05/10/17 05/11/17 19:00 07:00 Intake Total 470 ml Balance 470 ml Intake Oral 470 ml Laboratory Tests 05/10/17 09:40: White Blood Count 6.1, Red Blood Count 2.85L, Hemoglobin 9.6L, Hematocrit 28.3L , Mean Corpuscular Volume 99, Mean Corpuscular Hemoglobin 33.7H, Mean Corpuscular Hemoglobin Concent 34.0, Red Cell Distribution Width 11.9, Platelet Count 231, Mean Platelet Volume 6.6, Neutrophils (%) (Auto) 73.8, Lymphocytes (% ) (Auto) 11.0L, Monocytes (%) (Auto) 9.3, Eosinophils (%) (Auto) 4.8H, Basophils (%) (Auto) 1.2, Erythrocyte Sedimentation Rate 99H, Sodium Level 135L , Potassium Level 3.2L, Chloride Level 97L, Carbon Dioxide Level 28, Anion Gap 11, Blood Urea Nitrogen 40H, Creatinine 3.9H, Estimat Glomerular Filtration Rate , Glucose Level 156H, Calcium Level 8.0L, Phosphorus Level 2.0L, Magnesium Level 1.6L, Total Bilirubin 0.3, Aspartate Amino Transf (AST/SGOT) 15, Alanine Aminotransferase (ALT/SGPT) 11L, Alkaline Phosphatase 95, C-Reactive Protein, Quantitative 2.8H, Pro-B-Type Natriuretic Peptide [id number], Total Protein 6.2L, Albumin 2.3L, Globulin 3.9, Albumin/Globulin Ratio 0.6L 05/10/17 11:40: Vancomycin Level Trough 14.7H Height (Feet): 5 Height (Inches): 2.00 Weight (Pounds): 118 General Appearance: alert, mild distress Neurologic: alert, oriented x 3, responsive, depressed affect Alvarez Russ M.D. May 10, 2017 22:07
[2017-05-11] VITALS: BP 117/60
[2017-05-11] MEDS: Aztreonam 0.5gm in D5W 55ml IVPB SCH ×2 (01:26→10:41)
[2017-05-11 04:00] VITALS: BP 130/72
[2017-05-11] MEDS ORDERED: Heparin Sod 1000 units/ml 10ml IV PRN (06:00)
[2017-05-11 08:00] VITALS: BP 140/60
--- NOTE | 2017-05-11 08:08 | Infectious Diseases Prog Note ---
Subjective Constitutional: Denies: no symptoms, fever, chills, fatigue, anorexia, drenching sweats, other Allergies: Coded Allergies: HYDROMORPHONE (Verified Allergy, Unknown, 05/06/17) KETOROLAC (Verified Allergy, Unknown, 05/06/17) PENICILLINS (Verified Allergy, Unknown, 05/06/17) Objective Vital Signs Last 24 Hour Vital Signs Date Time Temp Pulse Resp B/P (MAP) Pulse Ox O2 Delivery O2 Flow Rate FiO2 05/11/17 04:00 98.3 64 20 130/72 97 Room Air 05/11/17 04:00 65 05/11/17 00:00 69 05/11/17 00:00 98.1 69 18 117/60 98 Room Air 05/10/17 20:00 68 05/10/17 20:00 97.0 20 137/77 98 Room Air 05/10/17 19:30 68 16 Room Air 21 05/10/17 16:00 70 05/10/17 15:35 98.1 68 18 128/63 98 Room Air 05/10/17 12:00 69 05/10/17 11:37 97.8 77 18 133/63 96 Room Air 05/10/17 09:25 72 134/62 05/10/17 09:20 72 134/62 Height (Feet): 5 Height (Inches): 2.00 Weight (Pounds): 120 HEENT: anicteric Respiratory/Chest: no respiratory distress Cardiovascular: regularly irregular Abdomen: non distended Microbiology Date/Time Source Procedure Growth Status 05/09/17 16:00 Blood Blood Culture - Preliminary NO GROWTH AFTER 24 HOURS Resulted 05/08/17 10:55 Blood Blood Culture - Preliminary NO GROWTH AFTER 48 HOURS Resulted 05/08/17 11:25 Straight Cath Urine Culture - Final Escherichia Coli Complete Laboratory Tests Test 05/10/17 09:40 05/10/17 11:40 White Blood Count 6.1 K/UL (4.8-10.8) Red Blood Count 2.85 M/UL (4.20-5.40) L Hemoglobin 9.6 G/DL (12.0-16.0) L Hematocrit 28.3 % (37.0-47.0) L Mean Corpuscular Volume 99 FL (80-99) Mean Corpuscular Hemoglobin 33.7 PG (27.0-31.0) H Mean Corpuscular Hemoglobin Concent 34.0 G/DL (32.0-36.0) Red Cell Distribution Width 11.9 % (11.6-14.8) Platelet Count 231 K/UL (150-450) Mean Platelet Volume 6.6 FL (6.5-10.1) Neutrophils (%) (Auto) 73.8 % (45.0-75.0) Lymphocytes (%) (Auto) 11.0 % (20.0-45.0) L Monocytes (%) (Auto) 9.3 % (1.0-10.0) Eosinophils (%) (Auto) 4.8 % (0.0-3.0) H Basophils (%) (Auto) 1.2 % (0.0-2.0) Erythrocyte Sedimentation Rate 99 MM/HR (0-42) H Sodium Level 135 MMOL/L (136-145) L Potassium Level 3.2 MMOL/L (3.5-5.1) L Chloride Level 97 MMOL/L (98-107) L Carbon Dioxide Level 28 MMOL/L (21-32) Anion Gap 11 mmol/L (5-15) Blood Urea Nitrogen 40 mg/dL (7-18) H Creatinine 3.9 MG/DL (0.55-1.30) H Estimat Glomerular Filtration Rate mL/min (>60) Glucose Level 156 MG/DL (74-106) H Calcium Level 8.0 MG/DL (8.5-10.1) L Phosphorus Level 2.0 MG/DL (2.5-4.9) L Magnesium Level 1.6 MG/DL (1.8-2.4) L Total Bilirubin 0.3 MG/DL (0.2-1.0) Aspartate Amino Transf (AST/SGOT) 15 U/L (15-37) Alanine Aminotransferase (ALT/SGPT) 11 U/L (12-78) L Alkaline Phosphatase 95 U/L (46-116) C-Reactive Protein, Quantitative 2.8 mg/dL (0.00-0.90) H Pro-B-Type Natriuretic Peptide 54711 pg/mL (0-125) H Total Protein 6.2 G/DL (6.4-8.2) L Albumin 2.3 G/DL (3.4-5.0) L Globulin 3.9 g/dL Albumin/Globulin Ratio 0.6 (1.0-2.7) L Vancomycin Level Trough 14.7 ug/mL (5.0-12.0) H Current Medications Medications (Trade) Dose Ordered Sig/Barbara Route PRN Reason Start Time Stop Time Status Last Admin Dose Admin Acetaminophen (Tylenol) 650 mg Q4H PRN ORAL Fever>100.5 05/07/17 08:00 06/06/17 07:59 05/08/17 00:36 Acetaminophen/ Hydrocodone Bitart ([place] 5/325) 1 tab Q6H PRN ORAL Severe Pain (Pain Scale 7-10) 05/07/17 08:00 05/14/17 07:59 05/11/17 05:09 Albuterol/ Ipratropium (Albuterol/ Ipratropium) 3 ml Q4H PRN HHN Shortness of Breath 05/07/17 08:00 05/12/17 07:59 Amlodipine Besylate (Norvasc) 10 mg DAILY ORAL 05/07/17 09:00 06/06/17 08:59 05/10/17 09:25 Aztreonam 0.5 gm/ Dextrose 55 ml @ 110 mls/hr Q12HR IVPB 05/09/17 21:00 05/16/17 20:59 05/11/17 01:26 Chlorhexidine Gluconate (Bella-Hex 2%) 1 applic DAILY TOPIC 05/07/17 09:00 06/06/17 08:59 05/10/17 09:28 Dextrose (Dextrose 50%) STAT PRN IV Hypoglycemia 05/07/17 08:00 06/06/17 07:59 Escitalopram Oxalate (Lexapro) 10 mg DAILY ORAL 05/10/17 09:00 06/09/17 08:59 05/10/17 09:25 Heparin Sodium (Porcine) (Heparin 5000 units/ml) 5,000 units EVERY 12 HOURS SUBQ 05/07/17 09:00 06/06/17 08:59 05/10/17 23:57 Heparin Sodium (Porcine) (Heparin Sod 1000 units/ml 10ml) 2,000 unit ONCE PRN IV HEMODIALYSIS 05/11/17 06:00 05/11/17 21:00 Hydralazine HCl (Apresoline) 25 mg EVERY 8 HOURS PRN ORAL For SBP > 150 05/07/17 08:00 06/06/17 07:59 Lamotrigine (LaMICtal) 200 mg BID ORAL 05/10/17 09:00 06/09/17 08:59 05/10/17 18:56 Levofloxacin (Levaquin) 250 mg Q48H ORAL 05/10/17 18:00 05/17/17 17:59 05/10/17 18:55 Metoprolol Tartrate (Lopressor) 5 mg Q1H PRN IVP spb more than 120 05/07/17 08:00 06/06/17 07:59 Ondansetron HCl (Zofran) 4 mg Q6H PRN IVP Nausea & Vomiting 05/07/17 08:00 06/06/17 07:59 Polyethylene Glycol (Miralax) 17 gm DAILYPRN PRN ORAL Constipation 05/07/17 08:00 06/06/17 07:59 Temazepam (Restoril) 15 mg HSPRN PRN ORAL Insomnia 05/07/17 21:00 05/14/17 20:59 Vancomycin HCl (Vanco rx to dose) 1 ea DAILY PRN MISC Per rx protocol 05/09/17 09:30 06/08/17 09:29 Vitamin B Complex/ Vit C/Folic Acid (Nephrovite) 1 tab 3XW ORAL 05/07/17 09:00 06/06/17 08:59 05/10/17 09:26 Vitamin B Complex/ Vit C/Folic Acid (Nephrovite) 1 tab QWEEK ORAL 05/09/17 09:00 06/08/17 08:59 05/09/17 08:16 Vitamin D (Vitamin D) 2,000 intlu DAILY ORAL 05/07/17 09:00 06/06/17 08:59 05/10/17 09:25 GRAHAM WHITTEN M.D. May 11, 2017 08:08
--- NOTE | 2017-05-11 08:13 | Infectious Diseases Prog Note ---
Assessment/Plan Assessment/Plan Assessment/Plan Assesment: Fever- no evid of bacteremia or line infection Probbale UTI Ucx 70-80k Ecoli -Bcx NTD, Bcx-(joan cath) pending -CXR no acute process -no leukocytosis ?Recent infectious process for which patient as getting outpt Abx (?nature of infection, ?abx type and duration) Afib with RVR SOB/lightheadness- 2ry to above Troponinemia HTN Afib ESRD on HD TTS chronic dCHF ?PNC allergy- patient refers she was told years ago by an trading assistant she had PNC allergy but she says they were not really sure if PNC was the drug; reaction seem to be dizziness. seizure disorder s/p L femur ORIF b/l leg fx s/p ORIF s/p NYA for fibroid tumor HLD anemia R eye blindness Osteopenia, 2ry hyperparathyroidism, Plan: -Continue, Levaquin # 4/10 and DC IV Vanco #4 and Aztreonam # 3 , upon DC will cont Levaquin x 6 more days ( Rx in chart ) -obtain records from ID physician at [facility] to elucidate recent infectious disease process and abx regimen -f/u Blood Cx -Monitor CBC/bmp, temperatures -aspiration precautions Subjective Constitutional: Denies: no symptoms, fever, chills, fatigue, anorexia, drenching sweats, other Allergies: Coded Allergies: HYDROMORPHONE (Verified Allergy, Unknown, 05/06/17) KETOROLAC (Verified Allergy, Unknown, 05/06/17) PENICILLINS (Verified Allergy, Unknown, 05/06/17) Objective Vital Signs Last 24 Hour Vital Signs Date Time Temp Pulse Resp B/P (MAP) Pulse Ox O2 Delivery O2 Flow Rate FiO2 05/11/17 04:00 98.3 64 20 130/72 97 Room Air 05/11/17 04:00 65 05/11/17 00:00 69 05/11/17 00:00 98.1 69 18 117/60 98 Room Air 05/10/17 20:00 68 05/10/17 20:00 97.0 20 137/77 98 Room Air 05/10/17 19:30 68 16 Room Air 21 05/10/17 16:00 70 05/10/17 15:35 98.1 68 18 128/63 98 Room Air 05/10/17 12:00 69 05/10/17 11:37 97.8 77 18 133/63 96 Room Air 05/10/17 09:25 72 134/62 05/10/17 09:20 72 134/62 Height (Feet): 5 Height (Inches): 2.00 Weight (Pounds): 120 HEENT: anicteric Respiratory/Chest: no respiratory distress Cardiovascular: regularly irregular Abdomen: non distended Microbiology Date/Time Source Procedure Growth Status 05/09/17 16:00 Blood Blood Culture - Preliminary NO GROWTH AFTER 24 HOURS Resulted 05/08/17 10:55 Blood Blood Culture - Preliminary NO GROWTH AFTER 48 HOURS Resulted 05/08/17 11:25 Straight Cath Urine Culture - Final Escherichia Coli Complete Laboratory Tests Test 05/10/17 09:40 05/10/17 11:40 White Blood Count 6.1 K/UL (4.8-10.8) Red Blood Count 2.85 M/UL (4.20-5.40) L Hemoglobin 9.6 G/DL (12.0-16.0) L Hematocrit 28.3 % (37.0-47.0) L Mean Corpuscular Volume 99 FL (80-99) Mean Corpuscular Hemoglobin 33.7 PG (27.0-31.0) H Mean Corpuscular Hemoglobin Concent 34.0 G/DL (32.0-36.0) Red Cell Distribution Width 11.9 % (11.6-14.8) Platelet Count 231 K/UL (150-450) Mean Platelet Volume 6.6 FL (6.5-10.1) Neutrophils (%) (Auto) 73.8 % (45.0-75.0) Lymphocytes (%) (Auto) 11.0 % (20.0-45.0) L Monocytes (%) (Auto) 9.3 % (1.0-10.0) Eosinophils (%) (Auto) 4.8 % (0.0-3.0) H Basophils (%) (Auto) 1.2 % (0.0-2.0) Erythrocyte Sedimentation Rate 99 MM/HR (0-42) H Sodium Level 135 MMOL/L (136-145) L Potassium Level 3.2 MMOL/L (3.5-5.1) L Chloride Level 97 MMOL/L (98-107) L Carbon Dioxide Level 28 MMOL/L (21-32) Anion Gap 11 mmol/L (5-15) Blood Urea Nitrogen 40 mg/dL (7-18) H Creatinine 3.9 MG/DL (0.55-1.30) H Estimat Glomerular Filtration Rate mL/min (>60) Glucose Level 156 MG/DL (74-106) H Calcium Level 8.0 MG/DL (8.5-10.1) L Phosphorus Level 2.0 MG/DL (2.5-4.9) L Magnesium Level 1.6 MG/DL (1.8-2.4) L Total Bilirubin 0.3 MG/DL (0.2-1.0) Aspartate Amino Transf (AST/SGOT) 15 U/L (15-37) Alanine Aminotransferase (ALT/SGPT) 11 U/L (12-78) L Alkaline Phosphatase 95 U/L (46-116) C-Reactive Protein, Quantitative 2.8 mg/dL (0.00-0.90) H Pro-B-Type Natriuretic Peptide 64213 pg/mL (0-125) H Total Protein 6.2 G/DL (6.4-8.2) L Albumin 2.3 G/DL (3.4-5.0) L Globulin 3.9 g/dL Albumin/Globulin Ratio 0.6 (1.0-2.7) L Vancomycin Level Trough 14.7 ug/mL (5.0-12.0) H Current Medications Medications (Trade) Dose Ordered Sig/Barbara Route PRN Reason Start Time Stop Time Status Last Admin Dose Admin Acetaminophen (Tylenol) 650 mg Q4H PRN ORAL Fever>100.5 05/07/17 08:00 06/06/17 07:59 05/08/17 00:36 Acetaminophen/ Hydrocodone Bitart ([place] 5/325) 1 tab Q6H PRN ORAL Severe Pain (Pain Scale 7-10) 05/07/17 08:00 05/14/17 07:59 05/11/17 05:09 Albuterol/ Ipratropium (Albuterol/ Ipratropium) 3 ml Q4H PRN HHN Shortness of Breath 05/07/17 08:00 05/12/17 07:59 Amlodipine Besylate (Norvasc) 10 mg DAILY ORAL 05/07/17 09:00 06/06/17 08:59 05/10/17 09:25 Aztreonam 0.5 gm/ Dextrose 55 ml @ 110 mls/hr Q12HR IVPB 05/09/17 21:00 05/16/17 20:59 05/11/17 01:26 Chlorhexidine Gluconate (Bella-Hex 2%) 1 applic DAILY TOPIC 05/07/17 09:00 06/06/17 08:59 05/10/17 09:28 Dextrose (Dextrose 50%) STAT PRN IV Hypoglycemia 05/07/17 08:00 06/06/17 07:59 Escitalopram Oxalate (Lexapro) 10 mg DAILY ORAL 05/10/17 09:00 06/09/17 08:59 05/10/17 09:25 Heparin Sodium (Porcine) (Heparin 5000 units/ml) 5,000 units EVERY 12 HOURS SUBQ 05/07/17 09:00 06/06/17 08:59 05/10/17 23:57 Heparin Sodium (Porcine) (Heparin Sod 1000 units/ml 10ml) 2,000 unit ONCE PRN IV HEMODIALYSIS 05/11/17 06:00 05/11/17 21:00 Hydralazine HCl (Apresoline) 25 mg EVERY 8 HOURS PRN ORAL For SBP > 150 05/07/17 08:00 06/06/17 07:59 Lamotrigine (LaMICtal) 200 mg BID ORAL 05/10/17 09:00 06/09/17 08:59 05/10/17 18:56 Levofloxacin (Levaquin) 250 mg Q48H ORAL 05/10/17 18:00 05/17/17 17:59 05/10/17 18:55 Metoprolol Tartrate (Lopressor) 5 mg Q1H PRN IVP spb more than 120 05/07/17 08:00 06/06/17 07:59 Ondansetron HCl (Zofran) 4 mg Q6H PRN IVP Nausea & Vomiting 05/07/17 08:00 06/06/17 07:59 Polyethylene Glycol (Miralax) 17 gm DAILYPRN PRN ORAL Constipation 05/07/17 08:00 06/06/17 07:59 Temazepam (Restoril) 15 mg HSPRN PRN ORAL Insomnia 05/07/17 21:00 11/3/17 20:59 Vancomycin HCl (Vanco rx to dose) 1 ea DAILY PRN MISC Per rx protocol 05/09/17 09:30 06/08/17 09:29 Vitamin B Complex/ Vit C/Folic Acid (Nephrovite) 1 tab 3XW ORAL 05/07/17 09:00 06/06/17 08:59 05/10/17 09:26 Vitamin B Complex/ Vit C/Folic Acid (Nephrovite) 1 tab QWEEK ORAL 05/09/17 09:00 06/08/17 08:59 05/09/17 08:16 Vitamin D (Vitamin D) 2,000 intlu DAILY ORAL 05/07/17 09:00 06/06/17 08:59 05/10/17 09:25 GRAHAM WHITTEN M.D. May 11, 2017 08:13
[2017-05-11] MEDS: Heparin 5000 units/ml inj SUBQ SCH (09:00)
[2017-05-11] MEDS: Dyna-Hex 2% Top Sol 2oz TOPIC SCH (10:42)
[2017-05-11] MEDS: Vitamin D 1000 IU Tab ORAL SCH (11:21)
[2017-05-11 12:00] VITALS: BP 137/77
--- NOTE | 2017-05-11 12:32 | Pulmonology Progress Note ---
Assessment/Plan Problems: (1) Fever (2) Atrial fibrillation with rapid ventricular response (3) ESRD (end stage renal disease) (4) Hypokalemia (5) NSTEMI (non-ST elevated myocardial infarction) Assessment/Plan awaiting ID recommendation about ABx heart rate controlled, sinus pt insists on eating regular diet. HD by nephrology GNR in urine, Subjective ROS Limited/Unobtainable: No Constitutional: Reports: no symptoms HEENT: Repors: no symptoms Respiratory: Reports: dyspnea on exertion Allergies: Coded Allergies: HYDROMORPHONE (Verified Allergy, Unknown, 05/06/17) KETOROLAC (Verified Allergy, Unknown, 05/06/17) PENICILLINS (Verified Allergy, Unknown, 05/06/17) Objective Last 24 Hour Vital Signs Date Time Temp Pulse Resp B/P (MAP) Pulse Ox O2 Delivery O2 Flow Rate FiO2 05/11/17 12:00 97.8 72 21 137/77 98 Room Air 05/11/17 08:20 70 16 Room Air 21 05/11/17 08:00 97.7 65 20 140/60 96 Room Air 05/11/17 04:00 98.3 64 20 130/72 97 Room Air 05/11/17 04:00 65 05/11/17 00:00 69 05/11/17 00:00 98.1 69 18 117/60 98 Room Air 05/10/17 20:00 68 05/10/17 20:00 97.0 20 137/77 98 Room Air 05/10/17 19:30 68 16 Room Air 21 05/10/17 16:00 70 05/10/17 15:35 98.1 68 18 128/63 98 Room Air General Appearance: no acute distress, cachetic HEENT: normocephalic, atraumatic Respiratory/Chest: chest wall non-tender, lungs clear Cardiovascular: normal peripheral pulses, normal rate Abdomen: normal bowel sounds, soft, non tender Genitourinary: normal external genitalia Extremities: no cyanosis 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/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: 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, no motor/sensory deficits Microbiology Date/Time Source Procedure Growth Status 05/09/17 16:00 Blood Blood Culture - Preliminary NO GROWTH AFTER 24 HOURS Resulted Current Medications Medications (Trade) Dose Ordered Sig/Barbara Route PRN Reason Start Time Stop Time Status Last Admin Dose Admin Acetaminophen (Tylenol) 650 mg Q4H PRN ORAL Fever>100.5 05/07/17 08:00 06/06/17 07:59 05/08/17 00:36 Acetaminophen/ Hydrocodone Bitart ([place] 5/325) 1 tab Q6H PRN ORAL Severe Pain (Pain Scale 7-10) 05/07/17 08:00 05/14/17 07:59 05/11/17 05:09 Albuterol/ Ipratropium (Albuterol/ Ipratropium) 3 ml Q4H PRN HHN Shortness of Breath 05/07/17 08:00 05/12/17 07:59 Amlodipine Besylate (Norvasc) 10 mg DAILY ORAL 05/07/17 09:00 06/06/17 08:59 05/10/17 09:25 Aztreonam 0.5 gm/ Dextrose 55 ml @ 110 mls/hr Q12HR IVPB 05/09/17 21:00 05/16/17 20:59 05/11/17 10:41 Chlorhexidine Gluconate (Bella-Hex 2%) 1 applic DAILY TOPIC 05/07/17 09:00 06/06/17 08:59 05/11/17 10:42 Dextrose (Dextrose 50%) STAT PRN IV Hypoglycemia 05/07/17 08:00 06/06/17 07:59 Escitalopram Oxalate (Lexapro) 10 mg DAILY ORAL 05/10/17 09:00 06/09/17 08:59 05/11/17 10:41 Heparin Sodium (Porcine) (Heparin 5000 units/ml) 5,000 units EVERY 12 HOURS SUBQ 05/07/17 09:00 06/06/17 08:59 05/10/17 23:57 Heparin Sodium (Porcine) (Heparin Sod 1000 units/ml 10ml) 2,000 unit ONCE PRN IV HEMODIALYSIS 05/11/17 06:00 05/11/17 21:00 Hydralazine HCl (Apresoline) 25 mg EVERY 8 HOURS PRN ORAL For SBP > 150 05/07/17 08:00 06/06/17 07:59 Lamotrigine (LaMICtal) 200 mg BID ORAL 05/10/17 09:00 06/09/17 08:59 05/11/17 10:43 Levofloxacin (Levaquin) 250 mg Q48H ORAL 05/10/17 18:00 05/17/17 17:59 05/10/17 18:55 Metoprolol Tartrate (Lopressor) 5 mg Q1H PRN IVP spb more than 120 05/07/17 08:00 06/06/17 07:59 Mirtazapine (Remeron) 7.5 mg BEDTIME ORAL 05/11/17 21:00 06/10/17 20:59 Ondansetron HCl (Zofran) 4 mg Q6H PRN IVP Nausea & Vomiting 05/07/17 08:00 06/06/17 07:59 Polyethylene Glycol (Miralax) 17 gm DAILYPRN PRN ORAL Constipation 05/07/17 08:00 06/06/17 07:59 Temazepam (Restoril) 15 mg HSPRN PRN ORAL Insomnia 05/07/17 21:00 05/14/17 20:59 Vancomycin HCl (Vanco rx to dose) 1 ea DAILY PRN MISC Per rx protocol 05/09/17 09:30 06/08/17 09:29 Vitamin B Complex/ Vit C/Folic Acid (Nephrovite) 1 tab 3XW ORAL 05/07/17 09:00 06/06/17 08:59 05/10/17 09:26 Vitamin B Complex/ Vit C/Folic Acid (Nephrovite) 1 tab QWEEK ORAL 05/09/17 09:00 06/08/17 08:59 05/09/17 08:16 Vitamin D (Vitamin D) 2,000 intlu DAILY ORAL 05/07/17 09:00 06/06/17 08:59 05/11/17 11:21 ALESHA FERRO May 11, 2017 12:32
--- NOTE | 2017-05-11 13:26 | General Progress Note ---
Assessment/Plan Status: stable Assessment/Plan Anxiety d/o cont current meds add remeron 7.5 mg qhs Subjective Neurologic/Psychiatric: Reports: anxiety, depressed, emotional problems Allergies: Coded Allergies: HYDROMORPHONE (Verified Allergy, Unknown, 05/06/17) KETOROLAC (Verified Allergy, Unknown, 05/06/17) PENICILLINS (Verified Allergy, Unknown, 05/06/17) Subjective the pt is still anxious and stated she does not sleep Objective Last 24 Hour Vital Signs Date Time Temp Pulse Resp B/P (MAP) Pulse Ox O2 Delivery O2 Flow Rate FiO2 05/11/17 12:00 97.8 72 21 137/77 98 Room Air 05/11/17 08:20 70 16 Room Air 21 05/11/17 08:00 97.7 65 20 140/60 96 Room Air 05/11/17 04:00 98.3 64 20 130/72 97 Room Air 05/11/17 04:00 65 05/11/17 00:00 69 05/11/17 00:00 98.1 69 18 117/60 98 Room Air 05/10/17 20:00 68 05/10/17 20:00 97.0 20 137/77 98 Room Air 05/10/17 19:30 68 16 Room Air 21 05/10/17 16:00 70 05/10/17 15:35 98.1 68 18 128/63 98 Room Air Height (Feet): 5 Height (Inches): 2.00 Weight (Pounds): 120 General Appearance: no apparent distress, alert Neurologic: alert, oriented x 3, responsive, depressed affect Alvarez Russ M.D. May 11, 2017 13:26
--- NOTE | 2017-05-11 14:13 | Cardiology Progress Note ---
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 dr khan as outpt 96-98% sat on room air no fever blood cx neg Subjective Cardiovascular: Denies: chest pain, lightheadedness Respiratory: Reports: shortness of breath Gastrointestinal/Abdominal: Denies: abdominal pain Genitourinary: Denies: burning Objective Last 24 Hour Vital Signs Date Time Temp Pulse Resp B/P (MAP) Pulse Ox O2 Delivery O2 Flow Rate FiO2 05/11/17 12:00 68 05/11/17 12:00 97.8 72 21 137/77 98 Room Air 05/11/17 08:20 70 16 Room Air 21 05/11/17 08:00 97.7 65 20 140/60 96 Room Air 05/11/17 08:00 60 05/11/17 04:00 98.3 64 20 130/72 97 Room Air 05/11/17 04:00 65 05/11/17 00:00 69 05/11/17 00:00 98.1 69 18 117/60 98 Room Air 05/10/17 20:00 68 05/10/17 20:00 97.0 20 137/77 98 Room Air 05/10/17 19:30 68 16 Room Air 21 05/10/17 16:00 70 05/10/17 15:35 98.1 68 18 128/63 98 Room Air General Appearance: alert Neck: supple Cardiovascular: normal rate, regular rhythm Respiratory/Chest: lungs clear, normal breath sounds Abdomen: normal bowel sounds, non tender, soft Extremities: no swelling Microbiology Date/Time Source Procedure Growth Status 05/09/17 16:00 Blood Blood Culture - Preliminary NO GROWTH AFTER 24 HOURS Resulted SATHYA MCKEON May 11, 2017 14:13
--- NOTE | 2017-05-11 16:29 | Nephrology Progress Note ---
Assessment/Plan Assessment 1) ESRD on HD 2) Paroxysmal A. Fib 3) Vertigo, probably due to inner ear problem Plan: HD as ordered OK to be discharged post dialysis Subjective Subjective She is seen on HD, tolerating it well, she is in sinus rythm now, no c/p or sob Objective Objective Last 24 Hour Vital Signs Date Time Temp Pulse Resp B/P (MAP) Pulse Ox O2 Delivery O2 Flow Rate FiO2 05/11/17 12:00 68 05/11/17 12:00 97.8 72 21 137/77 98 Room Air 05/11/17 08:20 70 16 Room Air 21 05/11/17 08:00 97.7 65 20 140/60 96 Room Air 05/11/17 08:00 60 05/11/17 04:00 98.3 64 20 130/72 97 Room Air 05/11/17 04:00 65 05/11/17 00:00 69 05/11/17 00:00 98.1 69 18 117/60 98 Room Air 05/10/17 20:00 68 05/10/17 20:00 97.0 20 137/77 98 Room Air 05/10/17 19:30 68 16 Room Air 21 Height (Feet): 5 Height (Inches): 2.00 Weight (Pounds): 120 General Appearance: no apparent distress, alert EENT: PERRL/EOMI Neck: non-tender, supple Cardiovascular: normal rate, regular rhythm, no JVD Respiratory/Chest: lungs clear Abdomen: normal bowel sounds, non tender, soft 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
--- NOTE | 2017-05-11 17:49 | Internal Med Progress Note ---
Subjective Date of Service: May 11, 2017 Physician Name Karyn Stephenson Attending Physician Mesfin Hurt MD Current Medications Medications (Trade) Dose Ordered Sig/Barbara Route PRN Reason Start Time Stop Time Status Last Admin Dose Admin Acetaminophen (Tylenol) 650 mg Q4H PRN ORAL Fever>100.5 05/07/17 08:00 06/06/17 07:59 05/08/17 00:36 Acetaminophen/ Hydrocodone Bitart ([place] 5/325) 1 tab Q6H PRN ORAL Severe Pain (Pain Scale 7-10) 05/07/17 08:00 05/14/17 07:59 05/11/17 05:09 Albuterol/ Ipratropium (Albuterol/ Ipratropium) 3 ml Q4H PRN HHN Shortness of Breath 05/07/17 08:00 05/12/17 07:59 Amlodipine Besylate (Norvasc) 10 mg DAILY ORAL 05/07/17 09:00 06/06/17 08:59 05/10/17 09:25 Chlorhexidine Gluconate (Bella-Hex 2%) 1 applic DAILY TOPIC 05/07/17 09:00 06/06/17 08:59 05/11/17 10:42 Dextrose (Dextrose 50%) STAT PRN IV Hypoglycemia 05/07/17 08:00 06/06/17 07:59 Escitalopram Oxalate (Lexapro) 10 mg DAILY ORAL 05/10/17 09:00 06/09/17 08:59 05/11/17 10:41 Heparin Sodium (Porcine) (Heparin 5000 units/ml) 5,000 units EVERY 12 HOURS SUBQ 05/07/17 09:00 06/06/17 08:59 05/10/17 23:57 Heparin Sodium (Porcine) (Heparin Sod 1000 units/ml 10ml) 2,000 unit ONCE PRN IV HEMODIALYSIS 05/11/17 06:00 05/11/17 21:00 Hydralazine HCl (Apresoline) 25 mg EVERY 8 HOURS PRN ORAL For SBP > 150 05/07/17 08:00 06/06/17 07:59 Lamotrigine (LaMICtal) 200 mg BID ORAL 05/10/17 09:00 06/09/17 08:59 05/11/17 10:43 Levofloxacin (Levaquin) 250 mg Q48H ORAL 05/10/17 18:00 05/17/17 17:59 05/10/17 18:55 Metoprolol Tartrate (Lopressor) 5 mg Q1H PRN IVP spb more than 120 05/07/17 08:00 06/06/17 07:59 Mirtazapine (Remeron) 7.5 mg BEDTIME ORAL 05/11/17 21:00 06/10/17 20:59 Ondansetron HCl (Zofran) 4 mg Q6H PRN IVP Nausea & Vomiting 05/07/17 08:00 06/06/17 07:59 Polyethylene Glycol (Miralax) 17 gm DAILYPRN PRN ORAL Constipation 05/07/17 08:00 06/06/17 07:59 Temazepam (Restoril) 15 mg HSPRN PRN ORAL Insomnia 05/07/17 21:00 05/14/17 20:59 Vancomycin HCl (Vanco rx to dose) 1 ea DAILY PRN MISC Per rx protocol 05/09/17 09:30 06/08/17 09:29 Vitamin B Complex/ Vit C/Folic Acid (Nephrovite) 1 tab 3XW ORAL 05/07/17 09:00 06/06/17 08:59 05/10/17 09:26 Vitamin B Complex/ Vit C/Folic Acid (Nephrovite) 1 tab QWEEK ORAL 05/09/17 09:00 06/08/17 08:59 05/09/17 08:16 Vitamin D (Vitamin D) 2,000 intlu DAILY ORAL 05/07/17 09:00 06/06/17 08:59 05/11/17 11:21 Allergies: Coded Allergies: HYDROMORPHONE (Verified Allergy, Unknown, 05/06/17) KETOROLAC (Verified Allergy, Unknown, 05/06/17) PENICILLINS (Verified Allergy, Unknown, 05/06/17) ROS Limited/Unobtainable: No Constitutional: Reports: no symptoms HEENT: Reports: no symptoms Cardiovascular: Reports: no symptoms Respiratory: Reports: no symptoms Gastrointestinal/Abdominal: Reports: no symptoms Genitourinary: Reports: no symptoms Neurologic/Psychiatric: Reports: no symptoms Subjective 87 YO F admitted with chest pain. Now UTI with fever. Cover for Int Med - Dr Hurt. Objective Last Vital Signs Date Time Temp Pulse Resp B/P (MAP) Pulse Ox O2 Delivery O2 Flow Rate FiO2 05/11/17 16:00 62 05/11/17 12:00 97.8 21 137/77 98 Room Air 05/11/17 08:20 21 05/08/17 00:21 95.0 Microbiology Date/Time Source Procedure Growth Status 05/09/17 16:00 Blood Blood Culture - Preliminary NO GROWTH AFTER 24 HOURS Resulted Objective General Appearance: WD/WN, no apparent distress, alert EENT: PERRL/EOMI, normal ENT inspection Neck: non-tender, normal alignment, supple, normal inspection Cardiovascular: normal peripheral pulses, normal rate, regular rhythm, no gallop/murmur, no JVD Respiratory/Chest: chest wall non-tender, lungs clear, normal breath sounds, no respiratory distress, no accessory muscle use Abdomen: normal bowel sounds, non tender, soft, no organomegaly, no mass Neurologic: 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 Continue IV levaquin . D/C aztreonam per ID (2) Elevated troponin (3) Seizure disorder (4) Chest pain Assessment & Plan: See cardiology note (5) SOB (shortness of breath) (6) Atrial fibrillation with rapid ventricular response Assessment & Plan: Currently sinus. See cardiology note. (7) ESRD (end stage renal disease) Assessment & Plan: See nephrology note. Hemodialysis today 05/10/17 (8) UTI (urinary tract infection) Assessment & Plan: E. Coli. Cont levaquin per ID. Status: progressing Assessment/Plan Discharge planning KARYN STEPHENSON May 11, 2017 17:49
[2017-05-11 20:59] VITALS: BP 180/82
--- NOTE | 2017-05-13 13:52 | Discharge Summary ---
Discharge Summary Hospital Course Date of Admission May 07, 2017 at 01:47 Date of Discharge May 11, 2017 at 20:55 Admitting Diagnosis ATRIAL FIBRILLATION HPI Bri Vogt is a 87 year old female who was admitted on May 07, 2017 at 01:47 for Atrial Fibrillation Hospital Course [id number] Discharge Discharge Disposition Patient was discharged to Home (01) Discharge Diagnoses: Edith Mendes NP May 13, 2017 13:52
--- NOTE | 2017-05-13 13:54 | Discharge Summary ---
Discharge Summary Hospital Course Date of Admission May 07, 2017 at 01:47 Date of Discharge May 11, 2017 at 20:55 Admitting Diagnosis ATRIAL FIBRILLATION HPI Bri Vogt is a 87 year old female who was admitted on May 07, 2017 at 01:47 for Atrial Fibrillation Hospital Course [id number] Discharge Discharge Disposition Patient was discharged to Home (01) Discharge Diagnoses: Edith Mendes NP May 13, 2017 13:54
--- NOTE | 2017-05-13 18:03 | Cardiology Report ---
APPROVED REPORT EKG Measurement Heart [id number] Normal sinus rhythm Prolonged QT Abnormal ECG
--- NOTE | 2017-05-13 23:15 | Discharge Summary 2 SIG ---
DATE OF ADMISSION: 05/07/2017 DATE OF DISCHARGE: 05/11/2017 ATTENDING PHYSICIAN: Mesfin Hurt M.D. CONSULTANTS: 1. Guillermo Colon M.D. 2. Raghu Whitehead M.D. 3. Ian Jackson M.D. 4. Mannie Galeano M.D. 5. Alvarez Russ M.D. BRIEF HOSPITAL COURSE: The patient is an 87-year-old white female with a history of end-stage renal disease on hemodialysis. She was getting her dialysis on 05/06/2017 and began to experience headache and shortness of breath with chest pain. She complained of palpitations. Chest pain did not radiate to the arm or to the jaw. She was then taken by paramedics to [place] emergency room where on evaluation, she was found to be in atrial fibrillation with rapid ventricular response. She was given IV hydration and IV Cardizem. Heart rate went down. She was noted to have hypokalemia and elevated troponin. She was started on heparin drip and was admitted to telemetry. Chest x-ray done showed mild cardiomegaly with Port-A-Cath into the superior vena cava. She was eventually converted to sinus rhythm. Initial EKG showed atrial fibrillation, ventricular response up to 133, and irregularly irregular. Her telemetry data showed basically sinus rhythm and continued without any recurrence of atrial fibrillation. Echocardiogram done showed moderate aortic stenosis, and moderate to severe mitral regurgitation. There was minimal elevated troponin. However, in fact the patient has end-stage renal disease and is on hemodialysis, troponin level was not absolutely diagnostic. The patient's urine culture showed growth of E. coli with 70 to 80,000 CFU. Blood culture did not isolate any growth. She complained of dizziness/vertigo probably due to the inner ear problem. She was eventually discharged home. FINAL DIAGNOSES: 1. Atrial fibrillation with rapid ventricular response. 2. End-stage renal disease, on hemodialysis. 3. Urinary tract infection with Escherichia coli. 4. Seizure disorder. 5. Paroxysmal atrial fibrillation. 6. Vertigo. 7. Anxiety disorder. 8. Probable urinary tract infection. 9. Shortness of breath/lightheadedness secondary to atrial fibrillation. DISPOSITION: The patient was discharged home. DISCHARGE MEDICATIONS: Refer to medication list. Guillermo Colon M.D. I have been assigned to dictate discharge summary on this account and I was not involved in the patient's management. Edith Mendes N.P. DR: MARY BETH JOB#: [id number] CC: JENY
== END 2017-05-11 20:55 | disposition home or self-care (01) | DRG 308 ==
LOC: EDBD 20:28 → EMR 20:48 → 2E 05-07 01:47 → EDBEDREQSVC 05-07 01:48 → EDBEDREQ 05-07 01:53 → 2E 05-11 15:39
PROC: 5A1D70Z Performance of Urinary Filtration, Intermittent, Less than 6 Hours Per Day (ICD-10-PCS; principal; 2017-05-08)
DX: I48.0 Paroxysmal atrial fibrillation (principal); N18.6 End stage renal disease; I12.0 Hypertensive chronic kidney disease with stage 5 chronic kidney disease or end stage renal disease; I50.32 Chronic diastolic (congestive) heart failure; N39.0 Urinary tract infection, site not specified; Z99.2 Dependence on renal dialysis; G40.909 Epilepsy, unspecified, not intractable, without status epilepticus; R07.9 Chest pain, unspecified; R06.02 Shortness of breath; B96.20 Unspecified Escherichia coli [E. coli] as the cause of diseases classified elsewhere; R42 Dizziness and giddiness; Z88.6 Allergy status to analgesic agent; Z88.0 Allergy status to penicillin; I35.0 Nonrheumatic aortic (valve) stenosis; I34.0 Nonrheumatic mitral (valve) insufficiency; E78.00 Pure hypercholesterolemia, unspecified; H54.61 Unqualified visual loss, right eye, normal vision left eye; Z88.1 Allergy status to other antibiotic agents; E87.6 Hypokalemia; F41.9 Anxiety disorder, unspecified; Z23 Encounter for immunization
CPT/HCPCS: 36415; 71010; 80048; 80053; 80202; 81001; 82550; 82553; 83735; 83880; 84100; 84443; 84484; 85025; 85610; 85651; 85730; 86140; 87040; 87081; 87086; 87181; 90630; 93005; 93306; 94664; J8499

== ENCOUNTER 2017-07-01 18:57 | Emergency (ER) | payer MEDICARE, BC ==
[~2017-07-01] VITALS: Ht 152.4 cm; Wt 59.0 kg
[~2017-07-01 18:57] MED LIST: AMLODIPINE BESY10 MG ORAL; CARVEDILOL6.25 MG ORAL; FUROSEMIDE40 MG ORAL; HYDRALAZINE HCL25 M1 ORAL; LAMICTAL100 MG ORAL; LAMICTAL150 MG ORAL; NEPHRO-VITE RX1 EAC1 PO; TYLENOL EXTRA500 MG ORAL
[2017-07-01] MEDS ORDERED: Sodium Chloride 500ML 500 ML IV ONE (19:11)
[2017-07-01 19:15] VITALS: BP 186/98
[2017-07-01] MEDS ORDERED: LORazepam Inj 2mg/ml 1ml IV ONE (19:15)
[2017-07-01] MEDS ORDERED: FUROSEMIDE40 MG ORAL (19:19)
[2017-07-01] MEDS ORDERED: HYDRALAZINE HCL10 MG ORAL (19:19)
[2017-07-01] MEDS ORDERED: NEPHROVITE1 TAB ORAL (19:19)
[2017-07-01] MEDS ORDERED: VITAMIN D1000 UNI1 ORAL (19:19)
[2017-07-01 19:58] LABS: BASOPHILS % (AUTO) 1.4 % (0.0-2.0); EOSINOPHILS % (AUTO) 3.7 % (0.0-3.0); LYMPHOCYTES % (AUTO) 22.1 % (20.0-45.0); MEAN CORPUSCULAR HGB CONC 31.2 G/DL (32.0-36.0); MEAN CORPUSCULAR VOLUME 100 FL (80-99); MEAN PLATELET VOLUME 5.3 FL (6.5-10.1); MONOCYTES % (AUTO) 9.4 % (1.0-10.0); NEUTROPHILS % (AUTO) 63.4 % (45.0-75.0); PLATELET COUNT 265 K/UL (150-450); RED BLOOD COUNT 3.95 M/UL (4.20-5.40); RED CELL DISTRIBUTION WIDTH 13.1 % (11.6-14.8); WHITE BLOOD COUNT 6.3 K/UL (4.8-10.8)
[2017-07-01 20:12] LABS: ANION GAP 9 mmol/L (5-15); CALCIUM 7.7 MG/DL (8.5-10.1); CARBON DIOXIDE 28 MMOL/L (21-32); CHLORIDE 93 MMOL/L (98-107); CREATININE 1.9 MG/DL (0.55-1.30); POTASSIUM 3.4 MMOL/L (3.5-5.1); SODIUM 130 MMOL/L (136-145)
[2017-07-01 20:26] LABS: ALANINE AMINOTRANSFERASE 18 U/L (12-78); ALBUMIN/GLOBULIN RATIO 0.9 (1.0-2.7); ASPARTATE AMINO TRANSFERASE 20 U/L (15-37); CKMB 1.7 NG/ML (0.0-3.6); TOTAL PROTEIN 7.8 G/DL (6.4-8.2)
[2017-07-01 21:15] VITALS: BP 150/70
[2017-07-01] MEDS ORDERED: ATIVAN0.5 MG ORAL (21:45)
[2017-07-01 21:50] VITALS: BP 144/66
--- NOTE | 2017-07-01 21:57 | Emergency Room Report ---
History of Present Illness General Chief Complaint: Seizure Source: Patient, Family Member, EMS Present Illness HPI 87-year-old female presents to ED status post seizure. Patient completed dialysis session today when she started to have focal seizures to her extremities. Daughter at bedside states that patient has history of seizures and takes Lamictal. States that whenever she starts to have focal seizures she sometimes progresses into full tonic-clonic seizures. Upon arrival patient states she feels okay. Denies any pain. Denies any fevers or chills. Denies chest pain. Patient states she did take her Lamictal as scheduled today. No other aggravating or leading factors. Denies any other associated symptoms Allergies: Coded Allergies: HYDROMORPHONE (Verified Allergy, Unknown, 05/06/17) KETOROLAC (Verified Allergy, Unknown, 05/06/17) MORPHINE (Unverified Allergy, Unknown, 07/01/17) PENICILLINS (Verified Allergy, Unknown, 05/06/17) PHENYTOIN (Unverified Allergy, Unknown, 07/01/17) Patient History Past Medical History: seizures, renal disease, dialysis Past Surgical History: none Pertinent Family History: none Social History: Denies: smoking, alcohol use, drug use Now: No Immunizations: UTD Reviewed Nursing Documentation: PMH: Agreed, PSxH: Agreed Nursing Documentation-PMH Past Medical History: No History, Except For Hx Hypertension: Yes Hx Diabetes: Yes Hx Cancer: No Hx Gastrointestinal Problems: No Hx Dialysis: Yes - TUES, THURS, SAT Hx Cerebrovascular Accident: Yes Hx Seizures: Yes Review of Systems All Other Systems: negative except mentioned in HPI Physical Exam Vital Signs Date Time Temp Pulse Resp B/P (MAP) Pulse Ox O2 Delivery O2 Flow Rate FiO2 07/01/17 18:51 87 20 186/98 100 Room Air 07/01/17 19:15 97.8 Sp02 EP Interpretation: reviewed, normal General Appearance: no apparent distress, alert, GCS 15, non-toxic Head: normocephalic, atraumatic Eyes: bilateral eye normal inspection, bilateral eye PERRL ENT: hearing grossly normal, normal pharynx, no angioedema, normal voice Neck: full range of motion, supple/symm/no masses Respiratory: chest non-tender, lungs clear, normal breath sounds, speaking full sentences Cardiovascular #1: regular rate, rhythm, no edema Cardiovascular #2: 2+ carotid (R), 2+ carotid (L), 2+ radial (R), 2+ radial (L) , 2+ dorsalis pedis (R), 2+ dorsalis pedis (L) Gastrointestinal: normal bowel sounds, non tender, soft, non-distended, no guarding, no rebound Rectal: deferred Genitourinary: normal inspection, no CVA tenderness Musculoskeletal: back normal, gait/station normal, normal range of motion, non- tender Neurologic: alert, oriented x3, responsive, motor strength/tone normal, sensory intact, speech normal Psychiatric: judgement/insight normal, memory normal, mood/affect normal, no suicidal/homicidal ideation Reflexes: 3+ bicep (R), 3+ bicep (L), 3+ tricep (R), 3+ tricep (L), 3+ knee (R) , 3+ knee (L) Skin: normal color, no rash, warm/dry, well hydrated Lymphatic: no adenopathy Medical Decision Making Diagnostic Impression: Primary Impression: Seizure disorder Additional Impression: ESRD (end stage renal disease) on dialysis ER Course Hospital Course 87-year-old F presents to ED status post seizure. History of end-stage renal disease Differential diagnosis includes- breakthrough seizure, alcohol abuse, noncompliance with medication Clinical course Patient placed on stretcher. Initial history and physical I ordered labs, EKG, CXR, IV ativan Labs-Cr 1.9, no leukocytosis, hemoglobin/hematocrit stable. trop negative x 1 EKG - NSR, no acute ischemic changes interpreted by me CXR - cardiomegaly, dialysis catheter in place Patient allowed to rest is now awake alert oriented x3. PMD Dr. Collins at bedside to evaluate the patient. believes patient can be safely discharged to home. I agree with assessment. Family is at bedside and can take patient home. Diagnosis - ESRD on dilaysis, seizure disorder stable and discharged to home. Followup with PMD. Return to ED if symptoms recur or worsen Labs Test 07/01/17 19:45 White Blood Count 6.3 K/UL (4.8-10.8) Red Blood Count 3.95 M/UL (4.20-5.40) Hemoglobin 12.3 G/DL (12.0-16.0) Hematocrit 39.4 % (37.0-47.0) Mean Corpuscular Volume 100 FL (80-99) Mean Corpuscular Hemoglobin 31.0 PG (27.0-31.0) Mean Corpuscular Hemoglobin Concent 31.2 G/DL (32.0-36.0) Red Cell Distribution Width 13.1 % (11.6-14.8) Platelet Count 265 K/UL (150-450) Mean Platelet Volume 5.3 FL (6.5-10.1) Neutrophils (%) (Auto) 63.4 % (45.0-75.0) Lymphocytes (%) (Auto) 22.1 % (20.0-45.0) Monocytes (%) (Auto) 9.4 % (1.0-10.0) Eosinophils (%) (Auto) 3.7 % (0.0-3.0) Basophils (%) (Auto) 1.4 % (0.0-2.0) Sodium Level 130 MMOL/L (136-145) Potassium Level 3.4 MMOL/L (3.5-5.1) Chloride Level 93 MMOL/L (98-107) Carbon Dioxide Level 28 MMOL/L (21-32) Anion Gap 9 mmol/L (5-15) Blood Urea Nitrogen 13 mg/dL (7-18) Creatinine 1.9 MG/DL (0.55-1.30) Estimat Glomerular Filtration Rate mL/min (>60) Glucose Level 85 MG/DL (74-106) Calcium Level 7.7 MG/DL (8.5-10.1) Total Bilirubin 0.7 MG/DL (0.2-1.0) Aspartate Amino Transf (AST/SGOT) 20 U/L (15-37) Alanine Aminotransferase (ALT/SGPT) 18 U/L (12-78) Alkaline Phosphatase 149 U/L (46-116) Total Creatine Kinase 29 U/L (26-308) Creatine Kinase MB 1.7 NG/ML (0.0-3.6) Creatine Kinase MB Relative Index 5.8 Troponin I 0.014 ng/mL (0.000-0.056) Pro-B-Type Natriuretic Peptide 2459 pg/mL (0-125) Total Protein 7.8 G/DL (6.4-8.2) Albumin 3.7 G/DL (3.4-5.0) Globulin 4.1 g/dL Albumin/Globulin Ratio 0.9 (1.0-2.7) EKG Diagnostic Results Rate: normal Rhythm: NSR ST Segments: no acute changes ASA given to the pt in ED: No Rhythm Strip Diag. Results EP Interpretation: yes Rhythm: NSR, no PVC's, no ectopy Chest X-Ray Diagnostic Results Chest X-Ray Diagnostic Results : Chest X-Ray Ordered: Yes # of Views/Limited/Complete: 1 View Indication: Other - sseizure EP Interpretation: Yes Interpretation: no consolidation, no effusion, no pneumothorax, no acute cardiopulmonary disease, other - Cardiomegaly, dialysis catheter in place Impression: Other - cardiomegaly Electronically Signed by: Electronically signed by Brandon Fritz MD Last Vital Signs Date Time Temp Pulse Resp B/P (MAP) Pulse Ox O2 Delivery O2 Flow Rate FiO2 07/01/17 19:15 97.8 61 20 186/98 100 Room Air Status: improved Disposition: HOME, SELF-CARE Condition: Stable Scripts Lorazepam* (ATIVAN*) 0.5 Mg Tablet 0.5 MG ORAL THREE TIMES A DAY, #15 TAB Prov: LIANG SIDHU M.D. 07/01/17 Referrals: CHLOE COLLINS Patient Instructions: Seizure, Adult BRANDON FRITZ M.D. Jul 01, 2017 21:57
--- NOTE | 2017-07-02 10:47 | History and Physical Report ---
DATE OF ADMISSION: 07/01/2017 NOTE: Poor Audio HISTORY OF PRESENT ILLNESS: The patient was brought into the ER from the dialysis center. This is an unfortunate female, who has had history of renal failure since October 2014 and has been on dialysis and had a jerky movement. She is currently on Lamictal. She was given anticoagulants and subsequently admitted to the hospital for further evaluation. She sedated and her and the daughter are with her. PAST MEDICAL HISTORY: Includes: 1. Chronic renal failure since October, however, she is able to urinate. 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 3. Chronic kidney disease. 4. Diastolic heart failure with . 5. Hypercholesterolemia. 6. Essential hypertension. 7. Osteoporosis. 8. Pelvic fracture. 9. Seizure disorder. PAST SURGICAL HISTORY: None. MEDICATIONS: 1. Rocaltrol 0.25 mcg. 2. Clonidine 0.1 mg. 3. B12. 4. Ferrous sulfate. 5. Docusate. 6. Nexium. 7. Hydralazine. 8. Nancy-Jadon. 9. Amlodipine. 10. Tylenol p.r.n. 11. Lasix 40 mg daily. 12. mg daily. 13. Crestor 10 mg daily. ALLERGIES: 1. Depakote. 2. Dilaudid. 3. Toradol. 4. Amantadine. 5. Cipro. 6. Dilantin. 7. Levothyroxine. 8. [place]. 9. Valsartan. 10. Hydrochlorothiazide. 11. Penicillin. Previously . PHYSICAL EXAMINATION: GENERAL: Sedated and in no acute distress. . HEART: S1 and S2. LUNGS: Clear. ABDOMEN: Soft, nontender, and nondistended. EXTREMITIES: No clubbing or cyanosis. LABORATORY AND DIAGNOSTIC DATA: Imaging admitted in the ER for further evaluation. Laboratory data was obtained was reviewed. WBC 6.3, hematocrit 39.4, and platelets is 269,000. Laboratory data shows a creatinine of 1.29. Sodium 130, potassium 3.4, and chloride 93. IMPRESSION: 1. seizure disorder, . 2. the patient can be sent home and follow as outpatient. I will not admit the patient to the hospital at this time . 3. Chronic kidney disease, status post renal failure in October, and is able to urinate. With this renal function, reducing his dialysis need and see if she might be able to come off dialysis. Gato Collins M.D. DR: NITA JOB#: [id number] CC: Ian Jackson M.D.; Fax#: [phone]
--- NOTE | 2017-07-02 16:33 | Diagnostic Imaging Report ---
Indication: Shortness of breath Technique: XRAY Chest 1v Comparison: 05/06/2017 Findings: Heart size and mediastinal contours are stable allowing for differences in technique. Atherosclerotic calcifications again noted in the aortic arch. A left IJ vein approach tunneled dialysis catheter is unchanged in position. There is linear atelectasis or scarring in the left lung. This is unchanged. No new focal consolidation is seen. No pleural effusion or pneumothorax. The bones appear demineralized. There is unchanged remote fracture deformity of the left humeral head. No acute osseous abnormality is appreciated. Impression: No radiographic evidence of acute cardiopulmonary disease. Unchanged left lower lung linear atelectasis/scarring. Additional findings as above.
--- NOTE | 2017-07-04 15:16 | Cardiology Report ---
APPROVED REPORT EKG Measurement Heart [id number] MA [id number] Normal sinus rhythm Normal ECG
== END 2017-07-01 21:50 | disposition home or self-care (01) ==
LOC: EDBD 18:57 → EMR 19:30
DX: G40.109 Localization-related (focal) (partial) symptomatic epilepsy and epileptic syndromes with simple partial seizures, not intractable, without status epilepticus (principal); I12.0 Hypertensive chronic kidney disease with stage 5 chronic kidney disease or end stage renal disease; N18.6 End stage renal disease; Z99.2 Dependence on renal dialysis; E11.9 Type 2 diabetes mellitus without complications; Z88.0 Allergy status to penicillin; Z88.8 Allergy status to other drugs, medicaments and biological substances; Z88.6 Allergy status to analgesic agent
CPT/HCPCS: 36415; 71010; 80053; 82550; 82553; 83880; 84484; 85025; 93005; 96361; 96374; 99284